=== PATIENT | male | born 1960 | race Caucasian/White ===

== ENCOUNTER 2017-07-07 11:23 | Emergency (ER) | payer SELFPAY ==
[2017-07-07] MEDS ORDERED: Adacel (T-DAP) 0.5 ML VIAL ONE (11:38)
== END 2017-07-07 11:42 | disposition home or self-care (01) ==
LOC: SCSER 11:23
DX: L03.114 Cellulitis of left upper limb (principal); M10.9 Gout, unspecified; I10 Essential (primary) hypertension; J44.9 Chronic obstructive pulmonary disease, unspecified; Z79.899 Other long term (current) drug therapy
CPT/HCPCS: 90471; 90715; 99282

== ENCOUNTER 2017-12-21 20:58 | Inpatient (IN) | payer SELFPAY ==
[2017-12-21 21:22] LABS: #Basophils 0.1 thou/uL (0.0-0.2); #Eosinphils 0.1 thou/uL (0.0-0.7); #Lymphocytes 1.7 thou/uL (1.20-3.40); #Monocytes 1.8 thou/uL (0.11-0.59); #Neutrophils 12.6 thou/uL (1.40-6.50); %Basophils 0.3 % (0.0-1.0); %Eosinophils 0.6 % (0.0-10.0); %Lymphocytes 10.3 % (21.0-51.0); %Neutrophils 77.8 % (42.0-75.0); Hemoglobin 12.4 g/dL (14.0-18.0); Mean Corpuscular HGB CONC 31.4 g/dL (32.0-36.0); Mean Corpuscular Hemoglobin 23.8 pg (27.0-31.0); Mean Corpuscular Volume 75.9 fL (78.0-98.0); Mean Platelet Volume 8.8 fL (7.4-10.4); Platelet Count 248 thou/uL (130-400); RBC Distribution Width 13.4 % (11.5-14.5); Red Blood Cell (RBC) Count 5.22 mill/uL (4.70-6.10); White Blood Cell (WBC) Count 16.2 thou/uL (4.8-10.8)
[2017-12-21 21:46] LABS: ALT (SGPT) 23 U/L (8-55); AST (SGOT) 23 U/L (5-34); Albumin 3.8 g/dL (3.5-5.0); Alkaline Phosphatase 160 U/L (40-150); Anion Gap 17 mmol/L (10-20); BUN (Urea Nitrogen) 62 mg/dL (8.4-25.7); Bilirubin, Total 0.9 mg/dL (0.2-1.2); CKMB 3.4 ng/mL (0-6.6); Calc. Creatinine Clearance 0 mL/min (70-130); Calcium 9.5 mg/dL (7.8-10.44); Carbon Dioxide 26 mmol/L (22-29); Chloride 96 mmol/L (98-107); Estimated GFR-MDRD 13; Globulin 4.2 g/dL (2.4-3.5); Glucose 110 mg/dL (70-105); Potassium 3.5 mmol/L (3.5-5.1); Sodium 135 mmol/L (136-145); Troponin I Less than 0.010 ng/mL (< 0.028)
--- NOTE | 2017-12-21 21:53 | RAD ---
AP VIEW CHEST: 12/21/2017 HISTORY: Trauma. Syncope. COMPARISON: 06/22/2015 FINDINGS: AP view chest demonstrates a 7 cm mid to lower left hilar or lung mass. This was not present on the previous exam. The right lung is well aerated. No evidence of definite pneumonia is seen. IMPRESSION: Mid to left lung soft tissue mass. Malignancy cannot be excluded. POS: [facility]
--- NOTE | 2017-12-21 22:36 | CT ---
CT BRAIN: HISTORY: Syncope. TECHNIQUE: Noncontrast enhanced CT images of the brain are obtained. FINDINGS: The brain is unremarkable. No evidence of intracranial masses, hemorrhages, strokes, or contusions s een. IMPRESSION: Normal CT brain. POS: [facility]
[2017-12-22 00:59] LABS: Troponin I Less than 0.010 ng/mL (< 0.028)
[2017-12-22 02:10] LABS: Bilirubin Negative (Negative); Blood, Urine Small (Negative); Clarity CLOUDY (Clear); Glucose, Urine (Dipstick) Negative (Negative); Leukocyte Moderate (Negative); Nitrite Negative (Negative); Protein, Urine (Dipstick) 100 mg/dL (Neg-Trace); Specific Gravity, Urine 1.013 (1.002-1.036); pH, Urine 5.5 (5.0-9.0)
[2017-12-22 02:13] LABS: Bacteria/HPF 3+ HPF (None Seen); Hyaline Casts/LPF 7-10 HYALINE CAST LPF (0-3 Hyaline); Pathc Cast-AUWi Flag 1.16 (0-2.49); RBC/HPF 21-50 HPF (0-3); Squamous Epithelial None Seen HPF (0-3)
[2017-12-22] MEDS ORDERED: traMADol HCl 50 MG TAB PO PRN (03:20)
[2017-12-22] MEDS ORDERED: Ondansetron PF 4 MG/2 ML Vial IVP PRN ×2 (03:20)
[2017-12-22] MEDS ORDERED: Ondansetron ODT 4 MG TAB PO PRN ×2 (03:20)
[2017-12-22] MEDS: Sodium Chloride 0.9% 1,000 ML IV SCH ×3 (03:43→17:30)
[2017-12-22] MEDS: Acetaminophen 325 MG TAB PO PRN ×2 (03:44→15:37)
[2017-12-22 03:56] LABS: Troponin I Less than 0.010 ng/mL (< 0.028)
[2017-12-22 03:58] LABS: Band 30 % (5-11); Eosinophils 1 % (0-10); Lymphocytes 3 % (21-51); MDiff Complete? YES; Mean Corpuscular HGB CONC 31.7 g/dL (32.0-36.0); Mean Corpuscular Hemoglobin 24.1 pg (27.0-31.0); Mean Corpuscular Volume 75.9 fL (78.0-98.0); Mean Platelet Volume 8.7 fL (7.4-10.4); Monocytes 3 % (0-10); Neutrophil 63 % (42-75); Platelet Count 159 thou/uL (130-400); RBC Distribution Width 13.4 % (11.5-14.5); Red Blood Cell (RBC) Count 4.99 mill/uL (4.70-6.10); White Blood Cell (WBC) Count 11.8 thou/uL (4.8-10.8)
[2017-12-22 04:04] LABS: Anion Gap 18 mmol/L (10-20); BUN (Urea Nitrogen) 59 mg/dL (8.4-25.7); Calc. Creatinine Clearance 30 mL/min (70-130); Calcium 8.8 mg/dL (7.8-10.44); Carbon Dioxide 20 mmol/L (22-29); Chloride 102 mmol/L (98-107); Estimated GFR-MDRD 17; Glucose 113 mg/dL (70-105); Potassium 3.5 mmol/L (3.5-5.1); Sodium 136 mmol/L (136-145)
--- NOTE | 2017-12-22 05:22 | HP ---
PRIMARY CARE PHYSICIAN: Dr. Renee at the [facility]. CHIEF COMPLAINT: "I passed out at [facility]." HISTORY OF PRESENT ILLNESS: Mr. Barrera is a pleasant 57-year-old gentleman that has a history of COPD, hypertension, and obstructive sleep apnea. He says over the past few days, he has been sleepin g most of the time and his appetite has been down and he has not been drinking as much fluids. He sa ys that he had a slight fever earlier today and was having some body aches. He took an Advil as he w as also having a headache. His significant other took his blood pressure and noted that it was low. She says that she gave him some coffee to try to increase the blood pressure and was going to rechec k it when she fell asleep. At this time, he went to [facility] with his daughter and says that when he was in the store, he passed out. He was brought to the emergency room where he was found to be hypot ensive with a blood pressure of 73/46. His creatinine was elevated at 4.0 and he is being admitted f or acute renal failure and hypotension. Also, on chest x-ray it was incidentally noted that he had a lung mass in the left upper lobe. The patient also says that he has been feeling nauseated off and on as well as having some heartburn, some loose stools, but otherwise no other complaints. He denies any chest pain or shortness of breath, no PND, no orthopnea, no lower extremity edema, but he has be en feeling dizzy for the last few days. He also states that he takes Benicar, but he does not take i t every day. He is not really sure if he even needs it because his blood pressure is usually on the lower side. REVIEW OF SYSTEMS: All systems are reviewed and are negative except for that mentioned in the histor y of present illness. PAST MEDICAL HISTORY: Significant for the COPD, hypertension, obstructive sleep apnea, narcolepsy, g out, and back problems. PAST SURGICAL HISTORY: Had an I&D of his finger and a gastric sleeve. ALLERGIES: No known drug allergies. SOCIAL HISTORY: He is . He has 2 children. He is a former smoker. He smoked at least 35 ye ars, approximately a pack a day. He occasionally drinks. CODE STATUS: FULL CODE. His surrogate decision maker is . FAMILY HISTORY: Significant for heart disease and diabetes. CURRENT MEDICATIONS: Tramadol 50 mg q.8 hours p.r.n., Lyrica 150 mg twice daily and olmesartan/hydro chlorothiazide 40/25 one tablet daily as directed. PHYSICAL EXAMINATION: GENERAL: He is alert and oriented. He appears to be in no acute distress. He is well developed, we ll nourished. VITAL SIGNS: His blood pressure was initially 73/46, heart rate 102, respiratory rate is 16, and tem perature is 97.9. HEENT: His pupils are equal, round, and reactive. Extraocular muscles are intact. Sclerae are anic teric. Throat: There is no erythema, no exudates. NECK: No adenopathy, no bruits. LUNGS: Clear to auscultation. There was no wheezing, no rales, no rhonchi. CARDIOVASCULAR: He had a normal S1, S2. There is no S3 or S4. No murmurs, clicks or rubs. ABDOMEN: Abdomen is soft, nonobese, positive for bowel sounds. There is no rebound, no guarding and no organomegaly. EXTREMITIES: There is no edema. Good distal pulses. MUSCULOSKELETAL: No muscle tenderness. No joint effusion or warmth. NEUROLOGIC: Cranial nerves II-XII intact and his muscle strength is 5/5 in both his upper and lower extremities. SKIN AND INTEGUMENT: No skin changes. No rash. LABORATORY RESULTS: D-dimer was 2.29. White blood cell count 16.2, hemoglobin 12.4, hematocrit is 3 9.6, platelet count was 248. Sodium 135, potassium 3.5, chloride is 96, CO2 is 26, BUN of 62, creati nine 4.59, glucose is 110. Alkaline phosphatase is . Troponin is less than 0.010. On his ches t x-ray by my reading, there did appear to be some haziness in the left lower lung, it is actually qu ite large oval shaped measuring approximately 7.3 cm and no other air space disease. No evidence of any effusion. Also had an EKG which by my reading is sinus rhythm, the rate was [address] wave c hanges. ASSESSMENT AND PLAN: This is a pleasant 57-year-old gentleman that presents after having a syncopal episode likely as a result of hypotension. This is likely due to volume depletion from poor oral int rad as well as KVNG inhibitors with a diuretic 1. Renal failure. We will continue IV hydration likely we will get a renal ultrasound as well and i f his renal function does not seem to be improving over the next few days, then consider a Nephrology consult. We will hold KVNG inhibitor for the ARB as well as a diuretic. 2. Syncope. This is likely related to #1. 3. Lung mass. We will consult Pulmonology for further recommendations. He will likely need a CT sc an for evaluation disease. 4. Chronic obstructive pulmonary disease, this appears to be clinically stable. We will continue Du oNebs as needed as well as his usual home medications for this and he will be placed on both deep guera ous thrombosis and gastrointestinal prophylaxis.
[2017-12-22 05:42] LABS: Creatinine, Urine 116.29 mg/dL (63-166)
--- NOTE | 2017-12-22 09:09 | ULT ---
RENAL ULTRASOUND: INDICATION: Renal failure. COMPARISON: None. FINDINGS: The right kidney measures 11.7 x 6.3 x 5.2 cm. There are small echogenic foci within the right kidne y likely reflecting tiny nonobstructing renal calculi. No hydronephrosis is evident. The left kidne y is 13.1 x 6.4 x 5.2 cm. No focal renal lesion or hydronephrosis is evident. The post void bladder volume of the bladder was 24.3 cc. The patient voided just prior to the examination. IMPRESSION: 1. No solid renal lesion or hydronephrosis. 2. Right nephrolithiasis. For more accurate measurement of the size of the renal calculi, a CT of t he abdomen and pelvis without contrast may be helpful. 3. Minimal post void residual. POS: [facility]
[2017-12-22] MEDS: Heparin 5,000 UNITS/ML VIAL SC SCH ×3 (10:23→20:54)
--- NOTE | 2017-12-22 10:50 | PDOC.PN ---
- Subjective Encounter Start Date: 12/22/17 Encounter Start Time: 10:25 Feels a little better. Does report that he has had some urinary hesitancy over past several days, but better now. - Objective Resuscitation Status: Resuscitation Status FULL:Full Resuscitation Vital Signs & Weight: Vital Signs (12 hours) Temp Pulse Resp BP Pulse Ox 12/22/17 07:40 99.7 F H 79 18 98/59 L 96 12/22/17 04:00 101.7 F H 107 H 20 100/59 L 97 12/22/17 00:30 99.1 F 90 18 121/70 99 Weight Weight 214 lb 8 oz I&O: 12/21/17 12/22/17 12/23/17 06:59 06:59 06:59 Output Total 850 Balance -850 Result Diagrams: 12/22/17 03:25 12/22/17 03:25 Phys Exam - Physical Examination Respiratory: no wheezing, no rales Diminished throughout Cardiovascular: RRR, no significant murmur, no rub Gastrointestinal: soft, non-tender, no distention Musculoskeletal: no edema Dx/Plan (1) Acute renal failure Status: Acute Comment: Likely secondary to dehydration, hypotension leading to Acute Tubular Necrosis. Continue fluids. (2) Lung mass Code(s): R91.8 - OTHER NONSPECIFIC ABNORMAL FINDING OF LUNG FIELD Status: Acute Comment: New since 2016. CT without contrast given renal injury. (3) COPD (chronic obstructive pulmonary disease) Status: Acute Comment: Continue nebs. (4) UTI (urinary tract infection) Status: Acute Comment: Urine culture, Blood culture. Start renally adjusted Levaquin. (5) Hypotension Status: Acute Comment: Dehydration, sepsis. Improved. Continue fluids. (6) Hypertension Code(s): I10 - ESSENTIAL (PRIMARY) HYPERTENSION Status: Acute Comment: Presented with hypotension. Meds held. (7) Sepsis Code(s): A41.9 - SEPSIS, UNSPECIFIED ORGANISM Status: Acute Comment: Hypotension, Leukocytosis, fever, UTI. Had fluid resuscitation. Starting abx. (8) Back pain Code(s): M54.9 - DORSALGIA, UNSPECIFIED Status: Acute Comment: Chronic. Continue Ultram. (9) D-dimer, elevated Code(s): R79.89 - OTHER SPECIFIED ABNORMAL FINDINGS OF BLOOD CHEMISTRY Status : Acute Comment: Difficult to know what to make of that in setting of possible lung ca. On low dose Heparin now (ARF). Will await Pulmonolgy recs. V:Q a possibility, but mass may be problematic. - Plan * .
[2017-12-22] MEDS ORDERED: [UNRECOGNIZED DRUG - REMARK] IVPB PRN (10:58)
--- NOTE | 2017-12-22 14:27 | CON ---
DATE OF CONSULTATION: 12/22/2017 HISTORY: Andrew Barrera is a 57-year-old who I have seen in the past for sleep apnea and asthma as well as COPD. He was lost to follow up. His last radiograph in my office showed clearing of the left lower lobe infiltrate that was suggestive of pneumonia. He presented this admission after being in bed for 2 days, not eating or drinking anything because he "felt bad." The "felt bad" was fairly nonspecific. He may have had some fever with this, but he was not sure he had a little bit of a headache and ached all over. He presented hypotensive with renal insufficiency, he has subsequently been volume resuscitated. PAST MEDICAL HISTORY: 1. Remarkable for COPD. 2. Hypertension. 3. Sleep apnea, noncompliant with followup and use of his CPAP. 4. Questionable history of narcolepsy. Last visit with me, he had been compliant with CPAP for long enough to work him up for narcolepsy. 5. History of gout. 6. History of back problems. 7. History of gastric sleeve. 8. History of I&D of finger abscess. SOCIAL HISTORY: He is a former smoker, but quit smoking when he seen me back in 2016. He is not a daily drinker. He lost his to pancreas cancer several years back and says everything fell apart after that. FAMILY HISTORY: Positive for vascular disease and diabetes. REVIEW OF SYSTEMS: Ten-point review of systems completed, otherwise negative. PHYSICAL EXAMINATION: GENERAL: Andrew Barrera is a 57-year-old who I have seen in the past for sleep apnea and asthma as well as COPD. VITAL SIGNS: He is febrile to 101.7, heart rate is 107 when he was febrile and 90 when he was afebrile. Respiratory rate is 20, oximetry is 97% on room air. Blood pressure 100/59. HEENT: Pupils are equal. Sclerae anicteric. NECK: Supple. LUNGS: Remarkable for faint wheezes bilaterally. HEART: Regular rhythm. S1 and S2 are normal. ABDOMEN: Soft and nontender. EXTREMITIES: Without clubbing, cyanosis, or edema. LABORATORY DATA: White count 11.8, hemoglobin 12.0, platelets 159. Sodium 136 , potassium 3.5, chloride 102, bicarbonate 20, BUN 59, creatinine 3.69 down from 4.59 yesterday. Alkaline phosphatase was 160. Liver enzymes were normal. Bilirubin was 0.9, albumin was 3.8. D-dimer is 2.29. IMAGING: Head CT was done when he came in which was unremarkable. IMPRESSION: 1. Intravascular volume depletion secondary to no p.o. intake for at least 2 days prior to admission. 2. Pulmonary nodule. I was consulted for chest x-ray abnormality not present on films when last seen by me. This is a smooth 7 cm density. It is large for a carcinoid tumor, but likely at some point in time, will need to come out. Now, it is not the time to address this. He has to get over his acute febrile illness before this can be addressed. He does have significant sleep apnea, but from what I can tell, he has lost his job and his insurance. It is unclear whether he has any financial support to reevaluate his sleep apnea. His last sleep study was in 2014. I would be happy to follow with the other physicians caring for him. This is a 50-minute consult, with greater than 50% of the time was spent in coordinating care on the unit. NABIL
[2017-12-22] MEDS ORDERED: Sodium Chloride 0.9% 500 ML IV SCH (16:00)
[2017-12-22] MEDS: Piperacillin/Tazobactam 2.25 GM in Sodium Chloride 0.9% 100 ML IVPB SCH ×2 (17:23→21:02)
[2017-12-22] MEDS ORDERED: Piperacillin/Tazobactam 3.375 GM in Sodium Chloride 0.9% 100 ML IVPB SCH (18:00)
[2017-12-23] MEDS: Sodium Chloride 0.9% 1,000 ML IV SCH ×3 (03:14→20:59)
[2017-12-23] MEDS: Piperacillin/Tazobactam 2.25 GM in Sodium Chloride 0.9% 100 ML IVPB SCH ×4 (03:15→20:58)
[2017-12-23 06:12] LABS: Anion Gap 13 mmol/L (10-20); Calcium 8.8 mg/dL (7.8-10.44); Carbon Dioxide 24 mmol/L (22-29); Chloride 102 mmol/L (98-107); Glucose 86 mg/dL (70-105); Potassium 3.8 mmol/L (3.5-5.1); Sodium 135 mmol/L (136-145)
[2017-12-23 06:15] LABS: BUN (Urea Nitrogen) 37 mg/dL (8.4-25.7); Calc. Creatinine Clearance 59 mL/min (70-130); Estimated GFR-MDRD 37
[2017-12-23] MEDS: Heparin 5,000 UNITS/ML VIAL SC SCH ×3 (09:01→20:58)
--- NOTE | 2017-12-23 16:26 | PDOC.PN ---
- Subjective Encounter Start Date: 12/23/17 Encounter Start Time: 11:45 Feeling better in general. No new complaints. Voiding well. - Objective Resuscitation Status: Resuscitation Status FULL:Full Resuscitation Vital Signs & Weight: Vital Signs (12 hours) Temp Pulse Resp BP BP Pulse Ox 12/23/17 12:11 74 16 96 12/23/17 11:49 98.4 F 60 16 91/55 L 95 12/23/17 08:00 98.2 F 76 16 88/55 L 96 Weight Admit Weight 214 lb 8 oz Weight 216 lb 6.4 oz I&O: 12/22/17 12/23/17 12/24/17 06:59 06:59 06:59 Intake Total 1700 Output Total 1450 Balance 250 Result Diagrams: 12/22/17 03:25 12/23/17 05:36 Phys Exam - Physical Examination Constitutional: NAD Respiratory: no wheezing, no rales, no rhonchi, clear to auscultation bilateral Cardiovascular: RRR I/ murmur Gastrointestinal: soft, non-tender, no distention, positive bowel sounds No CVAT Musculoskeletal: no edema Psychiatric: normal affect, A&O x 3 Dx/Plan (1) Sepsis Code(s): A41.9 - SEPSIS, UNSPECIFIED ORGANISM Status: Acute Comment: Hypotension, Leukocytosis, fever, UTI. Had fluid resuscitation. Starting abx. Secondary to UTI. E. Coli. (2) Acute renal failure Status: Acute Comment: Likely secondary to dehydration, hypotension leading to Acute Tubular Necrosis. Continue fluids. (3) Lung mass Code(s): R91.8 - OTHER NONSPECIFIC ABNORMAL FINDING OF LUNG FIELD Status: Acute Comment: New since 2016. Appreciate Pulm opinion. Will need addressed soon when he is over the sepsis and infection. May need CT with contrast when renal function is stable. (4) COPD (chronic obstructive pulmonary disease) Status: Acute Comment: Continue nebs. (5) UTI (urinary tract infection) Status: Acute Comment: Urine culture, Blood culture growing E. coli. On Levaquin and Zosyn. (6) Hypotension Status: Acute Comment: Dehydration, sepsis. Improved. Continue fluids. (7) Hypertension Code(s): I10 - ESSENTIAL (PRIMARY) HYPERTENSION Status: Acute Comment: Presented with hypotension. Meds held. (8) Back pain Code(s): M54.9 - DORSALGIA, UNSPECIFIED Status: Acute Comment: Chronic. Continue Ultram. (9) D-dimer, elevated Code(s): R79.89 - OTHER SPECIFIED ABNORMAL FINDINGS OF BLOOD CHEMISTRY Status : Acute Comment: Difficult to know what to make of that in setting of possible lung ca. On low dose Heparin now (ARF). Will await Pulmonolgy recs. V:Q a possibility, but mass may be problematic. - Plan * Continue fluids and antibiotics. * Ambulate.
[2017-12-24] MEDS: Piperacillin/Tazobactam 2.25 GM in Sodium Chloride 0.9% 100 ML IVPB SCH ×2 (03:37→11:17)
[2017-12-24] MEDS: Sodium Chloride 0.9% 1,000 ML IV SCH ×2 (04:37→17:02)
[2017-12-24 05:09] LABS: #Eosinphils 0.1 thou/uL (0.0-0.7); #Lymphocytes 1.2 thou/uL (1.20-3.40); #Monocytes 0.9 thou/uL (0.11-0.59); #Neutrophils 5.4 thou/uL (1.40-6.50); %Basophils 0.3 % (0.0-1.0); %Eosinophils 1.7 % (0.0-10.0); %Lymphocytes 16.1 % (21.0-51.0); %Monocytes 11.6 % (0.0-10.0); %Neutrophils 70.4 % (42.0-75.0); Hemoglobin 9.7 g/dL (14.0-18.0); Mean Corpuscular HGB CONC 31.8 g/dL (32.0-36.0); Mean Corpuscular Hemoglobin 24.2 pg (27.0-31.0); Mean Corpuscular Volume 76.2 fL (78.0-98.0); Platelet Count 195 thou/uL (130-400); RBC Distribution Width 13.2 % (11.5-14.5); Red Blood Cell (RBC) Count 3.98 mill/uL (4.70-6.10); White Blood Cell (WBC) Count 7.6 thou/uL (4.8-10.8)
[2017-12-24 05:19] LABS: Anion Gap 12 mmol/L (10-20); BUN (Urea Nitrogen) 23 mg/dL (8.4-25.7); Calc. Creatinine Clearance 92 mL/min (70-130); Calcium 8.4 mg/dL (7.8-10.44); Carbon Dioxide 24 mmol/L (22-29); Chloride 105 mmol/L (98-107); Estimated GFR-MDRD 62; Glucose 98 mg/dL (70-105); Potassium 3.2 mmol/L (3.5-5.1); Sodium 138 mmol/L (136-145)
[2017-12-24] MEDS ORDERED: Potassium Chloride 20 MEQ TAB PO SCH ×2 (08:30→13:30)
[2017-12-24] MEDS: Heparin 5,000 UNITS/ML VIAL SC SCH ×3 (08:46→20:28)
[2017-12-25] MEDS: Sodium Chloride 0.9% 1,000 ML IV SCH ×3 (01:10→09:00)
[2017-12-25 05:32] LABS: Anion Gap 12 mmol/L (10-20); BUN (Urea Nitrogen) 16 mg/dL (8.4-25.7); Calc. Creatinine Clearance 120 mL/min (70-130); Calcium 8.4 mg/dL (7.8-10.44); Carbon Dioxide 24 mmol/L (22-29); Chloride 107 mmol/L (98-107); Estimated GFR-MDRD 80; Glucose 112 mg/dL (70-105); Potassium 3.2 mmol/L (3.5-5.1); Sodium 140 mmol/L (136-145)
[2017-12-25] MEDS ORDERED: Potassium Chloride 20 MEQ TAB PO SCH (06:00)
[2017-12-25] MEDS: Heparin 5,000 UNITS/ML VIAL SC SCH (09:03)
[2017-12-25 11:50] VITALS: BMI 34.0
[2017-12-25 12:03] VITALS: BP 122/87; TEMP 97
--- NOTE | 2017-12-25 17:50 | EKG ---
Test Reason : Blood Pressure : / mmHG Vent. Rate : 092 BPM Atrial Rate : 092 BPM P-R Int : 156 ms QRS Dur : 096 ms QT Int : 354 ms P-R-T Axes : 073 034 040 degrees QTc Int : 437 ms Normal sinus rhythm Normal ECG Confirmed by BRITTANIE GAMBLE ([id number]), web content editor MYRTLE PORTER ([id number]) on 12/25/2017 5:49:07 PM Referred By: Confirmed By:BRITTANIE GAMBLE
--- NOTE | 2017-12-27 17:13 | PRG ---
DATE OF SERVICE: 12/27/2017 SUBJECTIVE: Patient is complaining of some just generalized fatigue, but otherwise feeling better ov erall with no specific complaints. PHYSICAL EXAMINATION: VITAL SIGNS: Temperature is 98.7, pulse 55, respirations 16, O2 sat 96% on room air, BP 101/66. GENERAL APPEARANCE: Age appropriate male in no distress. Awake, alert, oriented, pleasant, cooperat beau. HEART: Regular rate and rhythm without murmurs. LUNGS: Diminished but clear bilaterally with no wheeze or rales. ABDOMEN: Soft, nontender, nondistended, positive bowel sounds, no masses, no organomegaly. SKIN: Warm and dry without edema. LABORATORY DATA: White count 7.6, hemoglobin 9.7, platelets 195, has no bands reported. Potassium i s 3.2, otherwise chemistries normal. IMPRESSION AND PLAN: 1. Sepsis with Escherichia coli in the urine and the blood cultures. The patient does not appear to have evidence of ongoing sepsis. Seems to be fairly well resolved. 2. Acute renal failure improving with hydration and resolution of sepsis. Suspect acute tubular nec rosis secondary to hypotension. 3. Lung mass. Patient has an ovoid lung mass in the left upper lobe. He has been seen by Pulmonolo gy and recommendation is for outpatient followup once his infection has resolved. 4. Chronic obstructive pulmonary disease. Continue nebs. 5. Urinary tract infection with Escherichia coli. Patient is on both Levaquin and Zosyn. 6. Hypotension, resolved. 7. History of hypertension. Patient's history of hypertension he reported was a questionable and he was only taking medications intermittently. Appears to be stable now. 8. Elevated D-dimer. Patient was evaluated by Pulmonology. No recommendations for any further work up. May be related to acute illness or possibly related to the underlying lung mass.
--- NOTE | 2017-12-27 21:43 | DIS ---
DATE OF ADMISSION: 12/21/2017 DATE OF DISCHARGE: 12/25/2017 DISCHARGE DIAGNOSES: 1. Sepsis. 2. Urinary tract infection with Escherichia coli. 3. Escherichia coli bacteremia. 4. Acute renal failure likely secondary to acute tubular necrosis and hypotension. 5. Lung mass on the left upper lobe. 6. Chronic obstructive pulmonary disease. 7. Hypotension. 8. History of hypertension. 9. Elevated D-dimer. HISTORY: This patient is a 57-year-old male, who presented via the emergency department after a sync opal episode. The patient had not felt well for several days prior, was lethargic, but did not have other specific symptoms. He had not been eating or drinking well and ultimately had a syncopal episo de at [facility] where he was found to be hypotensive by first responders. The patient was seen in the emergency department where his creatinine was significantly elevated at 3.69. The patient had a whit e count of 16.2 and it was felt to have a significant prerenal azotemia from dehydration. The patien t received aggressive hydration in the emergency department and was admitted for further hydration. HOSPITAL COURSE: The patient subsequently had a urinalysis obtained, which revealed evidence of infe ction. He was then started on broad spectrum antibiotics with Levaquin and Zosyn. Subsequent blood cultures and urine culture were positive for E. coli, which fortunately had a number of antibiotic se nsitivities. The patient did improve clinically. His blood pressure resolved. He was voiding quite well without any evidence of obstruction. His strength and energy returned. His renal function com pletely normalized. He did have some mild hypokalemia that was treated with oral supplementation. T he patient also had an initial chest x-ray, which revealed an ovoid 7 cm lesion in the left upper lob e. Pulmonology was consulted and it was felt that this likely would need to come out, but the patien t would need to have his infection fully resolved before he could pursue any intervention. Once the patient was back to his baseline physical health, his cultures were known and his blood pressure was stabilized, he was felt to be stable for outpatient treatment. PHYSICAL EXAMINATION: VITAL SIGNS: On the day of discharge, temperature is 98.6, pulse 58, respirations 16, O2 sat 100% on room air, blood pressure 111/66. GENERAL APPEARANCE: Age appropriate male, in no distress. He is awake, alert, and oriented, pleasan t, cooperative. HEART: Regular rate and rhythm without murmurs, gallops or rubs. LUNGS: Slightly diminished throughout, but clear otherwise with no wheezes or rales. ABDOMEN: Soft, nontender, nondistended, positive bowel sounds. EXTREMITIES: Warm and dry without edema. DISPOSITION: The patient is discharged to home. DIET AND ACTIVITY: He will have a regular diet and activity level is as tolerated. DISCHARGE MEDICATIONS: He will be on Levaquin 500 mg p.o. q. day. He will continue his usual Lyrica , tramadol, and Benicar HCT. FOLLOWUP: He is to follow up with the [facility] and he is to follow up with Dr. Mccauley in 3- 4 weeks regarding the pulmonary lung mass. DISCHARGE INSTRUCTIONS: The patient is to return to the hospital emergency department should he have any problems prior to the time of his followup.
== END 2017-12-25 12:56 | disposition home or self-care (01) | DRG 871 ==
LOC: ERS 20:58 → 2NO 22:40
PROVIDERS: ADMIT Internal Medicine; ATTEND Internal Medicine
DX: A41.51 Sepsis due to Escherichia coli [E. coli] (principal); N17.0 Acute kidney failure with tubular necrosis; N39.0 Urinary tract infection, site not specified; R91.8 Other nonspecific abnormal finding of lung field; J44.9 Chronic obstructive pulmonary disease, unspecified; I10 Essential (primary) hypertension; E86.0 Dehydration; E87.6 Hypokalemia; G47.33 Obstructive sleep apnea (adult) (pediatric); M54.9 Dorsalgia, unspecified; R79.89 Other specified abnormal findings of blood chemistry; Z87.891 Personal history of nicotine dependence; Z79.899 Other long term (current) drug therapy
CPT/HCPCS: 36415; 36416; 70450; 71045; 76770; 80048; 80053; 81003; 81015; 82553; 82570; 83605; 84300; 84484; 85007; 85025; 85027; 85379; 87040; 87077; 87086; 87149; 87186; 90471; 90686; 93005; 94640; 96360; 96361; G0008; J1644; J1956; J2543; J7050; J7620

== ENCOUNTER 2018-02-20 | Observation (INO) | payer SELFPAY ==
[2018-02-20] MEDS ORDERED: Vancomycin HCl 1.5 GM in Sodium Chloride 0.9% 250 ML 300 ML IVPB ONE (00:45)
[2018-02-20 00:48] LABS: #Basophils 0.1 thou/uL (0.0-0.2); #Eosinphils 0.4 thou/uL (0.0-0.7); #Lymphocytes 2.1 thou/uL (1.20-3.40); #Monocytes 1.2 thou/uL (0.11-0.59); #Neutrophils 10.3 thou/uL (1.40-6.50); %Basophils 0.5 % (0.0-1.0); %Eosinophils 2.7 % (0.0-10.0); %Lymphocytes 15.2 % (21.0-51.0); %Monocytes 8.8 % (0.0-10.0); %Neutrophils 72.9 % (42.0-75.0); Hemoglobin 11.1 g/dL (14.0-18.0); Mean Corpuscular HGB CONC 31.8 g/dL (32.0-36.0); Mean Corpuscular Hemoglobin 24.2 pg (27.0-31.0); Mean Platelet Volume 8.1 fL (7.4-10.4); Platelet Count 269 thou/uL (130-400); RBC Distribution Width 14.7 % (11.5-14.5); Red Blood Cell (RBC) Count 4.57 mill/uL (4.70-6.10); White Blood Cell (WBC) Count 14.1 thou/uL (4.8-10.8)
[2018-02-20 01:31] LABS: ALT (SGPT) 12 U/L (8-55); AST (SGOT) 14 U/L (5-34); Albumin 3.7 g/dL (3.5-5.0); Alkaline Phosphatase 133 U/L (40-150); Anion Gap 14 mmol/L (10-20); BUN (Urea Nitrogen) 22 mg/dL (8.4-25.7); Bilirubin, Total 0.6 mg/dL (0.2-1.2); Calc. Creatinine Clearance 0 mL/min (70-130); Calcium 9.3 mg/dL (7.8-10.44); Carbon Dioxide 23 mmol/L (22-29); Chloride 103 mmol/L (98-107); Estimated GFR-MDRD 81; Globulin 3.6 g/dL (2.4-3.5); Glucose 117 mg/dL (70-105); Potassium 3.5 mmol/L (3.5-5.1); Protein, Total 7.3 g/dL (6.0-8.3); Sodium 136 mmol/L (136-145)
[2018-02-20] MEDS ORDERED: Ketorolac Tromethamine 30 MG/ML VIAL ONE (02:22)
[2018-02-20] MEDS ORDERED: Morphine 4 MG/ML VIAL ONE ×2 (02:22→10:01)
[2018-02-20] MEDS ORDERED: HYDROcodone/Acetaminophen 5/325 mg Tablet PO PRN ×2 (03:49)
[2018-02-20] MEDS ORDERED: Ondansetron PF 4 MG/2 ML Vial IVP PRN (03:49)
[2018-02-20] MEDS ORDERED: Acetaminophen 325 MG TAB PO PRN (03:49)
[2018-02-20] MEDS ORDERED: Ondansetron ODT 4 MG TAB SL PRN (03:49)
[2018-02-20] MEDS: Sodium Chloride 0.9% 1,000 ML IV SCH ×2 (04:16→19:32)
[2018-02-20 04:46] VITALS: BMI 31.2
--- NOTE | 2018-02-20 08:08 | RAD ---
RIGHT HAND 3 VIEWS: DATE: 02/20/2018. COMPARISON: None. HISTORY: Infection of the 3rd finger. FINDINGS: There is widening of the scapholunate interval, evidence of age-indeterminate scapholunate ligament t ear. There is diffuse soft tissue swelling involving the 3rd digit. There is no displaced fracture or evidence of dislocation seen. No radiopaque foreign body or subcut aneous gas noted. The soft tissues of the hand along the palm and dorsal aspect appear swollen. IMPRESSION: Diffuse soft tissue swelling suggests cellulitis. No acute fracture or dislocation. Widened scaphol unate interval. POS: [facility]
[2018-02-20] MEDS ORDERED: Morphine 4 MG/ML VIAL IV SCH (10:15)
[2018-02-20] MEDS: Ketorolac Tromethamine 30 MG/ML VIAL IVP SCH ×3 (10:16→21:26)
[2018-02-20] MEDS ORDERED: Sodium Chloride 0.9% 10 ML ONE (12:54)
[2018-02-20] MEDS ORDERED: Bacitracin Zinc Ointment 30 gm TUBE ONE ×2 (12:54→12:56)
[2018-02-20] MEDS ORDERED: Bupivacaine/Epinephrine 0.25% 30 ML VIAL ONE (12:54)
[2018-02-20] MEDS ORDERED: Bupivacaine PF 0.5% 30 ML VIAL ONE (13:07)
[2018-02-20] MEDS ORDERED: Fentanyl 100 MCG/2 ML VIAL ONE ×2 (13:17→14:24)
[2018-02-20] MEDS ORDERED: Promethazine HCl 25 MG/ML VIAL IM PRN (14:21)
[2018-02-20] MEDS ORDERED: Ondansetron HCl/PF 4 MG/2 ML Vial IVP PRN (14:21)
[2018-02-20] MEDS ORDERED: Promethazine HCl 25 MG/ML VIAL SLOW IVP PRN (14:21)
[2018-02-20] MEDS ORDERED: Rocuronium Bromide 10 MG/ML (10ML VIAL) ONE (15:31)
[2018-02-20] MEDS ORDERED: PROPOFOL 200 MG/20 ML VIAL ONE (15:31)
[2018-02-20] MEDS ORDERED: PHENYLEPHRINE-NS 100 MCG/ML 10 ML SYRINGE ONE (15:31)
[2018-02-20] MEDS ORDERED: Glycopyrrolate 0.2 MG/ML 5 ML SYRINGE ONE (15:31)
[2018-02-20] MEDS ORDERED: Lidocaine 1% PF 5 ML VIAL ONE (15:31)
[2018-02-20] MEDS: Morphine 4 MG/ML VIAL IV PRN ×2 (17:19→23:58)
[2018-02-21] MEDS: Vancomycin HCl 1 GM in Premix Bag 1 BAG IVPB SCH ×2 (02:01→14:36)
[2018-02-21] MEDS: Ketorolac Tromethamine 30 MG/ML VIAL IVP SCH ×4 (04:07→21:35)
[2018-02-21] MEDS: Morphine 4 MG/ML VIAL IV PRN ×3 (09:26→12:12)
[2018-02-21] MEDS: HYDROcodone/Acetaminophen 7.5/325 mg Tablet PO PRN ×3 (14:35→22:47)
[2018-02-22] MEDS: Vancomycin HCl 1 GM in Premix Bag 1 BAG IVPB SCH (01:50)
[2018-02-22] MEDS: Ketorolac Tromethamine 30 MG/ML VIAL IVP SCH ×4 (04:14→21:28)
[2018-02-22 06:49] LABS: #Basophils 0.1 thou/uL (0.0-0.2); #Eosinphils 0.6 thou/uL (0.0-0.7); #Lymphocytes 2.7 thou/uL (1.20-3.40); #Neutrophils 3.6 thou/uL (1.40-6.50); %Eosinophils 7.2 % (0.0-10.0); %Lymphocytes 33.6 % (21.0-51.0); %Monocytes 12.8 % (0.0-10.0); %Neutrophils 45.5 % (42.0-75.0); Hemoglobin 10.8 g/dL (14.0-18.0); Mean Corpuscular HGB CONC 32.4 g/dL (32.0-36.0); Mean Corpuscular Hemoglobin 24.5 pg (27.0-31.0); Mean Corpuscular Volume 75.7 fL (78.0-98.0); Mean Platelet Volume 8.5 fL (7.4-10.4); Platelet Count 281 thou/uL (130-400); RBC Distribution Width 14.5 % (11.5-14.5)
[2018-02-22] MEDS: HYDROcodone/Acetaminophen 7.5/325 mg Tablet PO PRN ×3 (08:25→21:37)
[2018-02-22] MEDS ORDERED: CEFAZOLIN/Water 2 GM/20 ML SYRINGE SLOW IVP SCH (13:30)
[2018-02-22] MEDS: CEFAZOLIN 2 GM/50 ML-DEXTROSE 2 GM in Premix Bag 1 BAG IVPB SCH ×2 (13:50→21:29)
--- NOTE | 2018-02-22 14:22 | OP ---
DATE OF PROCEDURE: 02/20/2018 PREOPERATIVE DIAGNOSIS: Right hand complex abscess, dorsal. FINDINGS: No gross purulence within the metacarpophalangeal joint. PROCEDURE PERFORMED: 1. arthrotomy visualized and irrigated to copious necrosis of subcutaneous tissue with abscess cavity 3 mm thick over the tendon and skin. Approximately 3 mL of gross thick aguilar green mucopurulent pus was removed and necrotic tissue. 2. Abscess incision and drainage, complex. POSTOPERATIVE DIAGNOSIS: Complex abscess. TOURNIQUET TIME: 20 minutes. CULTURES: Type 3 (dorsal abscess cavity) deep wound culture of short segment of metacarpophalangeal joint. INDICATIONS: The patient reported 2-1/2 days of progressive erythema, swelling and finally had pus and purulence at the site listed above. White count was 14.5 thousand. We felt urgent drainage was indicated. DESCRIPTION OF PROCEDURE: After successful general LMA technique, the limb was prepped and draped. We then gave 10 mL of 0.5% Marcaine block with very erythematous and indurated and edematous, so we were not sure We inflated the tourniquet carried through skin and subcutaneous tissue. In the center of wound, there was mucopurulent fluctuance that was easily identified, it was gross aguilar green pus subcutaneous tissue through a small hole. We were able to debride the 3 mm thick abscess cavity began just proximal to the retinaculum and then extended all the way to of the PIP joint. Then, once we debrided all mucosal material, we then irrigated this area with 2 to 3 L of normal saline and Pulsavac pressure and we made a small arthrotomy, then lifted up the extensor mechanism on the radial side and found gross purulence, we irrigated this with 1000 mL . Tourniquet deflated, hemostasis obtained, culture was sent as listed above and the patient left the operating room without evidence of anesthetic or operative complication. Job ID: [id number]
[2018-02-23] MEDS: Ketorolac Tromethamine 30 MG/ML VIAL IVP SCH ×4 (04:59→21:18)
[2018-02-23] MEDS: CEFAZOLIN 2 GM/50 ML-DEXTROSE 2 GM in Premix Bag 1 BAG IVPB SCH ×3 (05:00→21:19)
--- NOTE | 2018-02-23 07:35 | CON ---
DATE OF CONSULTATION: 02/22/2018 REASON FOR CONSULTATION: Hand abscess. HISTORY OF PRESENT ILLNESS: A 58-year-old recently discharged with a diagnosis of UTI, lung mass in left upper lobe, COPD, and hypotension, who now comes in with an abscess in the right hand dorsal aspect. He had I and D by Dr. Bernstein. Apparently, just an abscess was found without bone involvement. There was a hand x-ray, which showed diffuse soft tissue swelling. Currently, he is feeling better. No headaches, visual symptoms, sore throat, odynophagia, or dysphagia. No cough or sputum production. No chest pain. No back pain. No abdominal pain or diarrhea. No genitourinary symptoms. No neurological symptoms. PAST MEDICAL HISTORY: 1. COPD. 2. UTI. 3. Left upper lobe lung mass, yet to be diagnosed. 4. Obstructive sleep apnea. 5. Narcolepsy. 6. Gout. PAST SURGICAL HISTORY: I and D of finger as well as a recent gastric sleeve done elsewhere. ALLERGIES: NONE. SOCIAL HISTORY: Two children. . Former smoker. Drinks occasionally. FAMILY HISTORY: Noncontributory. CURRENT MEDICATIONS: 1. [place]. 2. Toradol. 3. Morphine. 4. Vancomycin. PHYSICAL EXAMINATION: VITAL SIGNS: Unremarkable. He is afebrile. SKIN: Shows the right hand dressing, I did not remove it. No photos are available to review the skin appearance. No other skin lesions noted. The patient has a peripheral IV access and is urinating in the toilet. LYMPH NODES: No lymphadenopathy. HEENT: Noncontributory. The patient has no [place] teeth left. NECK: Supple. LUNGS: Symmetric, clear breath sounds. HEART: S1 and S2. Regular rate. No S3 or S4. ABDOMEN: Soft, not distended or tender. No ascites. No bladder distention. MUSCULOSKELETAL: No joint inflammatory activity outside involved area. NEUROLOGIC: Nonfocal. LABORATORY DATA: White cell count is down from 14 to 8, hemoglobin 10, and platelets 281 with fairly normal differential. Chemistry reveals slight elevation of glucose. CRP 6.37. ASSESSMENT: 1. Left lung mass, which needs to be biopsied. 2. History of chronic obstructive pulmonary disease. 3. Right hand abscess. I am uncertain of the precipitating factor here. He was working with his car, so he may have injured his hand skin somehow. We just received the results of the susceptibility studies and it is a methicillin-susceptible Staph aureus, so I will switch him to Keflex orally for discharge planning, follow up in clinic, duration of tx: 3 wks. No evidence of osteomyelitis. Job ID: [id number] MTDD
[2018-02-23] MEDS: HYDROcodone/Acetaminophen 7.5/325 mg Tablet PO PRN (09:41)
[2018-02-24] MEDS: Ketorolac Tromethamine 30 MG/ML VIAL IVP SCH ×2 (04:58→08:59)
[2018-02-24] MEDS: CEFAZOLIN 2 GM/50 ML-DEXTROSE 2 GM in Premix Bag 1 BAG IVPB SCH (05:01)
[2018-02-24] MEDS: HYDROcodone/Acetaminophen 7.5/325 mg Tablet PO PRN (05:04)
[2018-02-24 08:14] VITALS: BP 138/84; TEMP 98.5
[2018-02-24] MEDS: Morphine 4 MG/ML VIAL IV PRN (08:59)
== END 2018-02-24 10:40 | disposition home or self-care (01) ==
LOC: ERS → SURG A 03:18
PROVIDERS: ADMIT Orthopaedic Surgery Hand Surgery; ATTEND Orthopaedic Surgery Hand Surgery
PROC: 0H9FXZZ Drainage of Right Hand Skin, External Approach (ICD-10-PCS; principal; 2018-02-20)
DX: L02.511 Cutaneous abscess of right hand (principal); J44.9 Chronic obstructive pulmonary disease, unspecified; G47.33 Obstructive sleep apnea (adult) (pediatric); G47.419 Narcolepsy without cataplexy; M10.9 Gout, unspecified; R91.8 Other nonspecific abnormal finding of lung field; E66.9 Obesity, unspecified; Z68.31 Body mass index [BMI] 31.0-31.9, adult; Z98.84 Bariatric surgery status; Z87.891 Personal history of nicotine dependence; Z98.890 Other specified postprocedural states
CPT/HCPCS: 36415; 80053; 85025; 85652; 86140; 87070; 87077; 87186; 87205; 96361; 96365; 96366; 96367; 96375; 96376; G0378; J1885; J2001; J2270; J2405; J2704; J3010; J3370; J3490; J7050; S0020

== ENCOUNTER 2018-02-26 13:48 | Outpatient (CLI) | payer SELFPAY ==
[~2018-02-26 13:48] MED LIST: Sodium Chloride 0.9% 15 ML NEB ONE
== END 2018-02-26 13:49 | disposition home or self-care (01) ==
LOC: WCC 13:48
PROVIDERS: ATTEND Family Medicine
DX: L03.113 Cellulitis of right upper limb (principal); L02.511 Cutaneous abscess of right hand
CPT/HCPCS: 97605; A4218

== ENCOUNTER 2018-02-27 23:09 | Emergency (ER) | payer SELFPAY | END 2018-02-28 00:24 | disposition home or self-care (01) | LOC: ERS 23:09 | DX: T81.89XA Other complications of procedures, not elsewhere classified, initial encounter (principal); J44.9 Chronic obstructive pulmonary disease, unspecified; I10 Essential (primary) hypertension; F32.9 Major depressive disorder, single episode, unspecified; M10.9 Gout, unspecified; Z87.891 Personal history of nicotine dependence; Z79.899 Other long term (current) drug therapy | CPT/HCPCS: 99283 ==

== ENCOUNTER 2018-03-01 11:27 | Outpatient (CLI) | payer SELFPAY | END 2018-03-01 11:28 | disposition home or self-care (01) | LOC: WCC 11:27 | PROVIDERS: ATTEND Family Medicine | DX: T81.89XD Other complications of procedures, not elsewhere classified, subsequent encounter (principal) | CPT/HCPCS: 97605; A4218 ==

== ENCOUNTER 2018-03-04 21:23 | Inpatient (IN) | payer SELFPAY ==
[2018-03-04 21:54] LABS: #Basophils 0.1 thou/uL (0.0-0.2); #Eosinphils 0.1 thou/uL (0.0-0.7); #Lymphocytes 3.2 thou/uL (1.20-3.40); #Monocytes 0.8 thou/uL (0.11-0.59); %Basophils 0.4 % (0.0-1.0); %Eosinophils 0.8 % (0.0-10.0); %Lymphocytes 20.8 % (21.0-51.0); %Monocytes 5.4 % (0.0-10.0); %Neutrophils 72.7 % (42.0-75.0); Mean Corpuscular HGB CONC 31.7 g/dL (32.0-36.0); Mean Corpuscular Hemoglobin 24.1 pg (27.0-31.0); Mean Corpuscular Volume 75.9 fL (78.0-98.0); Mean Platelet Volume 8.2 fL (7.4-10.4); Platelet Count 483 thou/uL (130-400); RBC Distribution Width 14.9 % (11.5-14.5); Red Blood Cell (RBC) Count 5.83 mill/uL (4.70-6.10); White Blood Cell (WBC) Count 15.2 thou/uL (4.8-10.8)
[2018-03-04 22:14] LABS: ALT (SGPT) 14 U/L (8-55); AST (SGOT) 19 U/L (5-34); Albumin 4.2 g/dL (3.5-5.0); Alkaline Phosphatase 167 U/L (40-150); Anion Gap 15 mmol/L (10-20); BUN (Urea Nitrogen) 32 mg/dL (8.4-25.7); Bilirubin, Total 0.3 mg/dL (0.2-1.2); Calc. Creatinine Clearance 0 mL/min (70-130); Calcium 10.1 mg/dL (7.8-10.44); Carbon Dioxide 22 mmol/L (22-29); Chloride 101 mmol/L (98-107); Estimated GFR-MDRD 25; Globulin 4.6 g/dL (2.4-3.5); Glucose 168 mg/dL (70-105); Protein, Total 8.8 g/dL (6.0-8.3); Sodium 133 mmol/L (136-145)
--- NOTE | 2018-03-04 22:27 | RAD ---
PORTABLE UPRIGHT FRONTAL CHEST RADIOGRAPH 03/04/18 COMPARISON: 12/21/17 HISTORY: Sepsis. FINDINGS: There is no pneumothorax, pleural fluid, or lobar consolidation. A 7.2 cm mass is again seen in the m edial aspect of the left lung base. Right lung appears clear. IMPRESSION: Stable 7.2 cm mass within the right lung mass suspicious for malignancy. Results called to Dr. Musa 10:20 p.m., 03/04/18. Code CR POS: [facility]
[2018-03-04 22:59] LABS: Bilirubin Large (Negative); Blood, Urine Negative (Negative); Clarity CLOUDY (Clear); Glucose, Urine (Dipstick) Negative (Negative); Leukocyte Trace (Negative); Nitrite Negative (Negative); Protein, Urine (Dipstick) 30 mg/dL (Neg-Trace); Specific Gravity, Urine 1.024 (1.002-1.036)
[2018-03-04 23:02] LABS: Bacteria/HPF None Seen HPF (None Seen)
[2018-03-04 23:03] LABS: Pathc Cast-AUWi Flag 6.25 (0-2.49)
[2018-03-04 23:12] LABS: RBC/HPF 0-3 HPF (0-3)
[2018-03-04 23:13] LABS: Crystals/HPF 2+ CA OXALATE HPF (Negative); Renal Epithelial 0-3 HPF (0-3)
[2018-03-04] MEDS ORDERED: Vancomycin HCl 1.5 GM in Sodium Chloride 0.9% 250 ML 300 ML IVPB ONE (23:45)
[2018-03-04] MEDS ORDERED: Piperacillin/Tazobactam 4.5 GM VIAL ONE (23:49)
[2018-03-05] MEDS ORDERED: Clindamycin/D5W 900 mg/50 ml Premix Bag ONE (00:24)
[2018-03-05 05:35] LABS: Lactic Acid 0.7 mmol/L (0.5-2.2)
[2018-03-05] MEDS ORDERED: Sodium Chloride 0.65% Nasal 44 ML BOT EA NARE PRN (07:33)
[2018-03-05] MEDS ORDERED: hydrALAZINE 20 MG/ML VIAL SLOW IVP PRN (07:33)
[2018-03-05] MEDS ORDERED: Artificial Tears 18 DROP/0.9 ML EA EYE PRN (07:33)
[2018-03-05] MEDS ORDERED: Cepastat Lozenges 1 LOZ PO PRN (07:33)
[2018-03-05] MEDS ORDERED: HYDROcodone/Acetaminophen 5/325 mg Tablet PO PRN (07:33)
[2018-03-05] MEDS ORDERED: Bisacodyl 10 MG SUPP PR PRN (07:33)
[2018-03-05] MEDS ORDERED: Loperamide HCl 2 MG CAP PO PRN (07:33)
[2018-03-05] MEDS ORDERED: Eucerin (Mineral Oil/Petrolatum,White) 30 gm Jar TOP PRN (07:33)
[2018-03-05] MEDS ORDERED: Zolpidem Tartrate 5 MG TAB PO PRN (07:33)
[2018-03-05] MEDS ORDERED: Calcium Carbonate 500 MG ChewTAB PO PRN (07:33)
[2018-03-05] MEDS ORDERED: Ondansetron ODT 4 MG TAB PO PRN (07:33)
[2018-03-05] MEDS ORDERED: Ondansetron PF 4 MG/2 ML Vial IVP PRN (07:33)
[2018-03-05] MEDS ORDERED: Senokot S 8.6-50 MG TAB PO PRN (07:33)
[2018-03-05] MEDS ORDERED: Loratadine 10 MG TAB PO PRN (07:33)
[2018-03-05] MEDS ORDERED: Bisacodyl 5 MG TAB PO PRN (07:33)
[2018-03-05] MEDS ORDERED: VANCOMYCIN IVPB PRN (07:33)
[2018-03-05] MEDS ORDERED: Diabetic Tussin 200 MG/10 ML UDCUP PO PRN (07:33)
[2018-03-05] MEDS ORDERED: Acetaminophen 325 MG TAB PO PRN (07:33)
--- NOTE | 2018-03-05 07:48 | CT ---
CHEST CT WITHOUT CONTRAST: DATE: 03/04/2018. COMPARISON: None. HISTORY: Mass noted on recent chest radiograph. TECHNIQUE: Axial CT imaging at 5 mm intervals from the thoracic inlet through the upper abdomen without contrast . Coronal reformatted imaging obtained. FINDINGS: Imaged upper abdomen demonstrates multiple small stones within the gallbladder. There is a gastric s uture line present. No pleural, pericardial, or mediastinal fluid is evident. Evaluation of the viscera, vascular struct ures, and for lymphadenopathy is limited without IV contrast. Limited assessment of the chest for ly mphadenopathy appears unremarkable. There is a central soft tissue mass lesion within the left upper lobe abutting the fissure measuring 6.6 x 7.0 x 7.0 cm. This lesion is highly suspicious for bronchogenic carcinoma and appears amenable to sampling via bronchoscopy. No additional pulmonary parenchymal mass lesion or nodule noted on th e left. No pulmonary parenchymal mass lesion or nodule is appreciated on the right. Review of the osseous structures demonstrates a vague lytic area within the T10 vertebral body which may represent a hemangioma. Metastatic lesion not fully excluded but is felt less likely. IMPRESSION: Large soft tissue mass in the left upper lobe highly concerning for bronchogenic carcinoma. Nonspeci fic subtle lytic area within T10. Recommend further assessment via PET scan. The lesion within the left upper lobe appears amenable to tissue sampling via bronchoscopy. Dr. Musa made aware 12/10 a.m. 03/05/2018. CODE CR POS: [facility]
[2018-03-05] MEDS ORDERED: Famotidine 20 MG TAB ONE (08:49)
[2018-03-05] MEDS ORDERED: Enoxaparin Sodium 40 MG/0.4 ML SYRINGE ONE (08:49)
[2018-03-05] MEDS: Piperacillin/Tazobactam 2.25 GM in Sodium Chloride 0.9% 100 ML IVPB SCH ×3 (09:04→19:53)
[2018-03-05] MEDS: Enoxaparin Sodium 40 MG/0.4 ML SYRINGE SC SCH (09:05)
[2018-03-05] MEDS: Famotidine 20 MG TAB PO SCH ×2 (09:05→20:28)
[2018-03-05] MEDS: Saccharomyces boulardii 250 MG CAP PO SCH (09:05)
--- NOTE | 2018-03-05 10:45 | HP ---
PRIMARY CARE PHYSICIAN: [facility]. REASON FOR ADMISSION: Right hand cellulitis, hypotension, and lung mass. HISTORY OF PRESENT ILLNESS: A 58-year-old male, who has a history of right hand cellulitis and he was treated with incision and drainage on February 20, 2018. The patient stayed in the hospital for four days. He was discharged home on February 24, 2018. The patient was given Bactrim DS upon discharge. The patient was getting wound care with wound VAC through our hospital outpatient wound care clinic. Yesterday, the patient's blood pressure was running low. He was on antihypertensives medication and because blood pressure was low and he was feeling weak, that is why he did not take any blood pressure medication. Last night, when he woke up, at that time, he checked his blood pressure, it was 80 systolic. He was also feeling subjective warm and weak and that is why he decided to come to emergency room for evaluation. In the emergency room, sepsis alert was initiated. His routine blood test showed leukocytosis with left shift and he was found with acute kidney failure. His creatinine today is 2.67 when he was discharged about a week ago. At that time, his creatinine was 0.95. The patient was initially hypotensive and he was given IV fluid and after that, blood pressure improved. He denies any UTI symptoms. He denies any cough. He denies any weight loss. He denies any pleuritic chest pain. He denies any hemoptysis. 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 In the emergency room, the patient had a CT chest, which showed large soft tissue mass in left upper lobe concerning for bronchogenic carcinoma. REVIEW OF SYSTEMS: CONSTITUTIONAL: Negative for weight loss or gain, ability to conduct usual activities. SKIN: Negative for rash, itching. EYES: Negative for double vision, pain. ENT/MOUTH: Negative for nose bleeding, neck stiffness, pain, tenderness. CARDIOVASCULAR: Negative for palpitations, dyspnea on exertion, orthopnea. RESPIRATORY: Negative for shortness of breath, wheezing, cough, hemoptysis, fever or night sweats. GASTROINTESTINAL: Negative for poor appetite, abdominal pain, heartburn, nausea, vomiting, constipation, or diarrhea. GENITOURINARY: Negative for urgency, frequency, dysuria, nocturia. MUSCULOSKELETAL: Negative for pain, swelling. NEUROLOGIC/PSYCHIATRIC: Negative for anxiety, depression. ALLERGY/IMMUNOLOGIC: Negative for skin rash, bleeding tendency. Please see my HPI for pertinent positive and negative. All other review of systems reviewed and negative except as mentioned in the HPI. PAST MEDICAL HISTORY: COPD, obstructive sleep apnea, not on any CPAP therapy, hypertension, narcolepsy, gout, ex-smoker, history of lung mass, recent history of cellulitis of right hand. PAST SURGICAL HISTORY: The patient required incision and drainage for cellulitis/abscess over the right hand, gastric sleeve surgery. PAST PSYCHIATRIC HISTORY: Anxiety and depression. SOCIAL HISTORY: The patient drinks alcohol occasionally. He is ex-smoker. He quit smoking few years ago. He denies any other illicit drug abuse. FAMILY HISTORY: No family history of coronary artery disease, stroke, or cancer. ALLERGIES: NO KNOWN DRUG ALLERGIES. CURRENT HOME MEDICATIONS: 1. Tramadol 50 mg q.8 hourly p.r.n. 2. Lyrica 150 mg twice daily. 3. Benicar 20 mg daily. 4. Bactrim 1 tablet twice daily. EMERGENCY ROOM COURSE: The patient has received IV fluid, clindamycin, vancomycin, and Zosyn. PHYSICAL EXAMINATION: VITAL SIGNS: On arrival, blood pressure 99/66, pulse 115, respiratory rate 17, temperature 97.8, saturation 99% on room air. Weight 102.6 kg. GENERAL: The patient is currently alert, awake, no obvious acute distress. HEENT: Head; normocephalic, atraumatic. Eyes; pupils are round, reactive to light. Extraocular muscle intact. ENT, oropharynx within normal limits. Moist mucous membranes. No oral lesion. No pharyngeal erythema. No exudate. NECK: Supple. No JVD. No thyromegaly. No carotid bruit. LUNGS: Clear to auscultation without any rhonchi or rales. CARDIAC: S1 and S2 regular. No murmur elicited. No gallop. ABDOMEN: Soft. Bowel sounds present. Nontender. Nondistended. No organomegaly. No mass. No suprapubic tenderness. CARDIAC: S1 and S2 regular without any murmur. BACK: No CVA tenderness. EXTREMITIES: Upper extremity, the patient does have wound open over right hand, which is draining purulent material. No erythema or tenderness noted as well. Lower extremity, no edema. Good distal pulsation. SKIN: No skin rash other than wound over right dorsal aspect of hand. NEUROLOGIC: Nonfocal examination. SIGNIFICANT LABORATORY DATA: EKG showing sinus tachycardia, nonspecific ST-T changes. Chest x-ray showing left thoracic lung mass. CT chest consistent with large soft tissue mass in left upper lobe concerning for bronchogenic carcinoma, nonspecific lytic area within T10. CBC; WBC 15.2, hemoglobin 14.0, platelet 483 with left shift. BMP; sodium 133, potassium 5.0, chloride 101, carbon dioxide 22, anion gap 15, BUN 32, creatinine 2.67, glucose 168, calcium 10.1, lactic acid 0.7. LFT; AST 19, ALT 14, alkaline phosphatase 167, albumin 4.2. Urinalysis, leukocyte esterase trace. Blood culture negative. Culture from wound is also in process. ASSESSMENT AND PLAN: Impression: 1. Acute kidney failure. The patient has multifactorial etiology of acute kidney failure including recent use of Bactrim as well as hypotension and volume depletion plus possible sepsis. At this point, we will avoid nephrotoxins agent. We will continue with IV fluid and will repeat BMP tomorrow and monitor renal function. We are expecting that with IV fluid, his renal function should get better. If not, then we will involve Nephrology. 2. Cellulitis with abscess over the right hand, status post recent incision and drainage. At this point, wound is draining purulent material. He will need wound VAC and we will continue with empiric antibiotic therapy with vancomycin and Zosyn and will adjust antibiotic dose based on renal function. 3. History of lung mass, never evaluated in the past because of insurance issue. I will consult Pulmonology for their opinion. 4. Sepsis with acute organ dysfunction. The patient has leukocytosis. Source of infection is cellulitis and he has acute kidney failure. 5. Sepsis associated hypotension. The patient will be given IV fluid. His blood pressure improved. We will hold on antihypertensive medication. 6. Hypertension. We will hold on antihypertensive medication because of current low blood pressure. 7. Urinary tract infection. Follow up on urine culture. Currently on antibiotic therapy. 8. Chronic obstructive pulmonary disease. We will continue with DuoNeb therapy q.6 hourly p.r.n. 9. History of obstructive sleep apnea. The patient does not have any CPAP machine at home. 10. Gout. We will check uric acid level tomorrow and then decide starting hyperuricemic therapy. 11. Obesity with BMI 32. Dietary education given. Weight loss education given. 12. Deep venous thrombosis prophylaxis, Lovenox 40 mg subcu daily. GI prophylaxis, Pepcid 20 mg p.o. b.i.d. CODE STATUS: The patient is full code. The patient does not have any surrogate decision maker. DISPOSITION PLAN: Based on clinical course, we are expecting the patient's stay in hospital more than 2 midnights. Plan of care discussed with the patient in detail. Job ID: [id number]
[2018-03-05] MEDS: Sodium Chloride 0.9% 1,000 ML IV SCH ×3 (14:40→20:29)
[2018-03-05 14:52] VITALS: BMI 32.2
--- NOTE | 2018-03-05 22:11 | CON ---
DATE OF CONSULTATION: 03/05/2018 CONSULTING PHYSICIAN: Dr. Cid.. REASON FOR CONSULTATION: Lung mass. HISTORY OF PRESENT ILLNESS: A 58-year-old male, who is being admitted for treatment of right hand cellulitis. Apparently, this was initially evaluated on February 20. He was in the hospital for 4 days, then discharged home on Bactrim. He had been getting wound care through a wound VAC. Yesterday, he was noted to be hypotensive. It was suggested that he come over to the emergency room for further evaluation. As part of this, he had a repeat chest x-ray and CT showing a known 7 cm mass in the left lung field. The patient has seen Dr. Mccauley for this in the past and is in the process of workup. PAST MEDICAL HISTORY: 1. Lung mass. 2. Chronic obstructive pulmonary disease. 3. HOA, not currently treated. 4. Narcolepsy. 5. Hypertension. 6. Cellulitis. PAST SURGICAL HISTORY: 1. I and D of a right hand abscess. 2. Gastric sleeve surgery. SOCIAL HISTORY: Smoked up until about 5 years ago, 1 to 3 packs per day. Occasionally drinks alcohol. FAMILY MEDICAL HISTORY: Unremarkable. ALLERGIES: NONE. MEDICATIONS: Prior to admission; 1. Tramadol. 2. Lyrica. 3. Benicar. 4. Bactrim. REVIEW OF SYSTEMS: Otherwise negative. PHYSICAL EXAMINATION: VITAL SIGNS: O2 saturation 95% on room air, blood pressure 130/70, respiratory rate 18. GENERAL: He is awake and alert, in no distress. HEENT: Unremarkable. NECK: No adenopathy or JVD. LUNGS: Clear. CARDIAC: S1, S2. Regular. ABDOMEN: Soft. EXTREMITIES: No edema. LABORATORY DATA: Reviewed. Notable findings included a white blood cell count of 15.2, sodium 133, creatinine 2.6. His CT and chest x-ray were reviewed. He has over 7 cm lung mass in the lingular portion of the left upper lobe. ASSESSMENT: Known left upper lobe lung mass. PLAN: No further workup will be done for this over the weekend. I will notify Dr. Mccauley on Thursday that the patient is in the hospital, but most of this workup can wait for outpatient evaluation. Job ID: [id number]
[2018-03-06] MEDS ORDERED: Vancomycin HCl 1.5 GM in Sodium Chloride 0.9% 250 ML 300 ML IVPB SCH
[2018-03-06] MEDS: Sodium Chloride 0.9% 1,000 ML IV SCH (02:18)
[2018-03-06] MEDS: Piperacillin/Tazobactam 2.25 GM in Sodium Chloride 0.9% 100 ML IVPB SCH ×4 (02:18→20:09)
[2018-03-06 06:32] LABS: #Basophils 0.1 thou/uL (0.0-0.2); #Eosinphils 0.6 thou/uL (0.0-0.7); #Lymphocytes 3.1 thou/uL (1.20-3.40); #Monocytes 1.2 thou/uL (0.11-0.59); #Neutrophils 7.1 thou/uL (1.40-6.50); %Basophils 0.5 % (0.0-1.0); %Eosinophils 5.2 % (0.0-10.0); %Lymphocytes 25.5 % (21.0-51.0); %Monocytes 10.2 % (0.0-10.0); %Neutrophils 58.6 % (42.0-75.0); Hemoglobin 11.9 g/dL (14.0-18.0); Mean Corpuscular HGB CONC 31.2 g/dL (32.0-36.0); Mean Corpuscular Hemoglobin 24.1 pg (27.0-31.0); Mean Corpuscular Volume 77.2 fL (78.0-98.0); Platelet Count 354 thou/uL (130-400); RBC Distribution Width 14.7 % (11.5-14.5); Red Blood Cell (RBC) Count 4.93 mill/uL (4.70-6.10); White Blood Cell (WBC) Count 12.1 thou/uL (4.8-10.8)
[2018-03-06 06:55] LABS: ALT (SGPT) 11 U/L (8-55); AST (SGOT) 16 U/L (5-34); Albumin 3.6 g/dL (3.5-5.0); Alkaline Phosphatase 143 U/L (40-150); Anion Gap 13 mmol/L (10-20); BUN (Urea Nitrogen) 22 mg/dL (8.4-25.7); Bilirubin, Total 0.2 mg/dL (0.2-1.2); Calc. Creatinine Clearance 97 mL/min (70-130); Calcium 9.2 mg/dL (7.8-10.44); Carbon Dioxide 19 mmol/L (22-29); Chloride 108 mmol/L (98-107); Estimated GFR-MDRD 63; Globulin 3.5 g/dL (2.4-3.5); Glucose 131 mg/dL (70-105); Potassium 4.4 mmol/L (3.5-5.1); Protein, Total 7.1 g/dL (6.0-8.3); Sodium 136 mmol/L (136-145); Uric Acid 6.2 mg/dL (3.5-7.2)
[2018-03-06] MEDS ORDERED: traMADol HCl 50 MG TAB PO PRN (07:21)
[2018-03-06] MEDS: Famotidine 20 MG TAB PO SCH ×2 (08:32→20:10)
[2018-03-06] MEDS: Saccharomyces boulardii 250 MG CAP PO SCH (08:33)
[2018-03-06] MEDS: Pregabalin 50 MG CAP PO SCH ×2 (08:33→20:09)
[2018-03-06] MEDS: Enoxaparin Sodium 40 MG/0.4 ML SYRINGE SC SCH (08:34)
[2018-03-06] MEDS: Morphine 2 MG/ML SYRINGE SLOW IVP PRN ×2 (08:35→20:10)
--- NOTE | 2018-03-06 10:58 | PDOC.PN ---
- Subjective Encounter Start Date: 03/06/18 Encounter Start Time: 08:50 -: old records requested/rev Patient seen and examined. No new complaints. No overnight events pt has less pain in his hand, dressing done - Objective Resuscitation Status - Order Detail: 03/05/18 07:29 Resuscitation Status Routine Resuscitation Status: FULL: Full Resuscitation MAR Reviewed: Yes Vital Signs & Weight: Vital Signs (12 hours) Temp Pulse Resp BP Pulse Ox 03/06/18 08:49 96 03/06/18 07:00 98.6 F 96 16 100/70 96 03/06/18 04:13 97.7 F 80 16 111/66 100 03/06/18 00:03 98.4 F 75 16 99/62 96 Weight Weight 224 lb 13.944 oz I&O: 03/05/18 03/06/18 03/07/18 06:59 06:59 06:59 Intake Total 2130 Balance 2130 Result Diagrams: 03/06/18 06:20 03/06/18 06:20 Phys Exam - Physical Examination Constitutional: NAD HEENT: PERRLA, moist MMs, sclera anicteric Neck: no JVD, supple Respiratory: no wheezing, no rales, no rhonchi Cardiovascular: RRR, no significant murmur, no rub Gastrointestinal: soft, non-tender, no distention, positive bowel sounds Musculoskeletal: no edema, pulses present right hand with dressing Neurological: non-focal, normal sensation, moves all 4 limbs Lymphatic: no nodes Psychiatric: normal affect, A&O x 3 Skin: no rash, normal turgor Dx/Plan (1) Cellulitis of right hand Code(s): L03.113 - CELLULITIS OF RIGHT UPPER LIMB Status: Acute (2) Acute renal failure Status: Resolved Comment: (3) Hypertension Code(s): I10 - ESSENTIAL (PRIMARY) HYPERTENSION Status: Chronic Comment: (4) Hypotension Status: Resolved Comment: (5) Sepsis with acute organ dysfunction Code(s): A41.9 - SEPSIS, UNSPECIFIED ORGANISM; R65.20 - SEVERE SEPSIS WITHOUT SEPTIC SHOCK Status: Acute (6) UTI (urinary tract infection) Status: Acute Comment: (7) COPD (chronic obstructive pulmonary disease) Status: Chronic Comment: (8) Chronic lower back pain Code(s): M54.5 - LOW BACK PAIN; G89.29 - OTHER CHRONIC PAIN Status: Chronic (9) Gout Code(s): M10.9 - GOUT, UNSPECIFIED Status: Chronic (10) Lung mass Code(s): R91.8 - OTHER NONSPECIFIC ABNORMAL FINDING OF LUNG FIELD Status: Chronic Comment: (11) HOA (obstructive sleep apnea) Code(s): G47.33 - OBSTRUCTIVE SLEEP APNEA (ADULT) (PEDIATRIC) Status: Chronic - Plan cont current plan of care, continue antibiotics * continue vancomycin and zosyn * as per hand surgeon, may need another I & D * wound care * pain control * as per pulmonary lung mass work up outpt * medication reviewed as below * symptomatic treatment. Review of Systems - Review of Systems ENT: negative: Ear Pain, Ear Discharge, Nose Pain, Nose Discharge, Nose Congestion, Mouth Pain, Mouth Swelling, Throat Pain, Throat Swelling, Other Respiratory: negative: Cough, Dry, Shortness of Breath, Hemoptysis, SOB with Excertion, Pleuritic Pain, Sputum, Wheezing Gastrointestinal: negative: Nausea, Vomiting, Abdominal Pain, Diarrhea, Constipation, Melena, Hematochezia, Other Genitourinary: negative: Dysuria, Frequency, Incontinence, Hematuria, Retention , Other Musculoskeletal: Hand Pain. negative: Neck Pain, Shoulder Pain, Arm Pain, Back Pain, Leg Pain, Foot Pain, Other - Medications/Allergies Allergies/Adverse Reactions: Allergies Allergy/AdvReac Type Severity Reaction Status Date / Time No Known Allergies Allergy Verified 05/20/15 00:46 Medications: Current Medications Acetaminophen (Tylenol) 650 mg PO Q4H PRN PRN Reason: Headache/Fever/Mild Pain (1-3) Hydrocodone Bitart/Acetaminophen ([place] 5/325) 1 tab PO Q4H PRN PRN Reason: Moderate Pain (4-6) Albuterol/Ipratropium (Duoneb) 3 ml NEB [id number] PRN PRN Reason: SOB &/or Wheezing Artificial Tears (Tears Naturale) 2 drop EA EYE PRN PRN PRN Reason: Dry Eyes Bisacodyl (Dulcolax) 10 mg PO DAILYPRN PRN PRN Reason: Constipation Bisacodyl (Dulcolax) 10 mg NE DAILYPRN PRN PRN Reason: Constipation Calcium Carbonate (Tums) 1,000 mg PO Q4H PRN PRN Reason: Heartburn or Indigestion Enoxaparin Sodium (Lovenox) 40 mg SC 0900 [facility] Last Admin: 03/06/18 08:34 Dose: 40 mg Famotidine (Pepcid) 20 mg PO BID [facility] Last Admin: 03/06/18 08:32 Dose: 20 mg Guaifenesin (Robitussin Sf) 200 mg PO Q4H PRN PRN Reason: Cough Hydralazine HCl (Apresoline) 10 mg SLOW IVP Q4H PRN PRN Reason: SBP > 180 and HR < 70 Piperacillin Sod/Tazobactam (Sod 2.25 gm/ Sodium Chloride) 100 mls @ 200 mls/ hr IVPB 0200,0800,1400,2000 [facility] Last Admin: 03/06/18 08:34 Dose: 100 mls Vancomycin HCl 1.5 gm/ Sodium (Chloride) 300 mls @ 200 mls/hr IVPB 0000 [facility] Last Admin: 03/05/18 23:53 Dose: 300 mls Loperamide HCl (Imodium) 2 mg PO PRN PRN PRN Reason: Diarrhea/Loose Stools Loratadine (Claritin) 10 mg PO DAILYPRN PRN PRN Reason: Sinus Symptoms Mineral Oil/White Petrolatum (Eucerin Cream) 0 gm TOP BIDPRN PRN PRN Reason: Dry Skin Miscellaneous Medication (Pharmacy To Dose) 1 each IVPB DAILYPRN PRN PRN Reason: LABS Morphine Sulfate (Morphine) 2 mg SLOW IVP Q4H PRN PRN Reason: Pain Last Admin: 03/06/18 08:35 Dose: 2 mg Ondansetron HCl (Zofran Odt) 4 mg PO Q6H PRN PRN Reason: Nausea/Vomiting Ondansetron HCl (Zofran) 4 mg IVP Q6H PRN PRN Reason: Nausea/Vomiting Pregabalin (Lyrica) 50 mg PO BID [facility] Last Admin: 03/06/18 08:33 Dose: 50 mg Saccharomyces Boulardii (Florastor) 250 mg PO DAILY [facility] Last Admin: 03/06/18 08:33 Dose: 250 mg Senna/Docusate Sodium (Senokot S) 2 tab PO BID PRN PRN Reason: Constipation Sodium Chloride ([place] Nasal [place] 0.65%) 0 ml EA NARE QIDPRN PRN PRN Reason: Nasal Congestion Sodium Chloride (Flush - Normal Saline) 10 ml IVF Q12HR [facility] Last Admin: 03/06/18 08:42 Dose: 10 ml Sodium Chloride (Flush - Normal Saline) 10 ml IVF PRN PRN PRN Reason: Saline Flush Throat Lozenges (Cepastat Lozenges) 1 lyla PO Q2H PRN PRN Reason: Sore Throat Tramadol HCl (Ultram) 50 mg PO Q6H PRN PRN Reason: Pain Zolpidem Tartrate (Ambien) 5 mg PO HSPRN PRN PRN Reason: Insomnia
[2018-03-06 12:11] LABS: Vancomycin, Random 18.2 ug/mL (See Comment)
[2018-03-06] MEDS: Vancomycin HCl 1.25 GM in Sodium Chloride 0.9% 250 ML 250 ML IVPB SCH (13:39)
--- NOTE | 2018-03-06 23:03 | EKG ---
Test Reason : LOW BP Blood Pressure : / mmHG Vent. Rate : 111 BPM Atrial Rate : 111 BPM P-R Int : 152 ms QRS Dur : 082 ms QT Int : 314 ms P-R-T Axes : 079 030 071 degrees QTc Int : 427 ms Sinus tachycardia Possible Left atrial enlargement Nonspecific T wave abnormality Abnormal ECG Confirmed by AMY CID, JUSTICE ([id number]), pictures editor MYRTLE PORTER ([id number]) on 03/06/2018 11:03:14 PM Referred By: Confirmed By:JUSTICE REYES MD
[2018-03-07] MEDS: Vancomycin HCl 1.25 GM in Sodium Chloride 0.9% 250 ML 250 ML IVPB SCH (00:42)
[2018-03-07] MEDS: Piperacillin/Tazobactam 2.25 GM in Sodium Chloride 0.9% 100 ML IVPB SCH ×2 (02:58→09:00)
[2018-03-07] MEDS: Morphine 2 MG/ML SYRINGE SLOW IVP PRN (04:07)
[2018-03-07] MEDS: Famotidine 20 MG TAB PO SCH ×2 (08:44→20:34)
[2018-03-07] MEDS: Pregabalin 50 MG CAP PO SCH ×2 (08:44→20:34)
[2018-03-07] MEDS: Saccharomyces boulardii 250 MG CAP PO SCH (08:45)
[2018-03-07] MEDS: Enoxaparin Sodium 40 MG/0.4 ML SYRINGE SC SCH (08:45)
[2018-03-07] MEDS: cefTRIAXone\\ROCEPHIN 2 GM in Sodium Chloride 0.9% 100 ML IVPB SCH (10:41)
[2018-03-07 11:02] LABS: #Basophils 0.1 thou/uL (0.0-0.2); #Eosinphils 0.4 thou/uL (0.0-0.7); #Lymphocytes 3.2 thou/uL (1.20-3.40); #Monocytes 0.9 thou/uL (0.11-0.59); #Neutrophils 4.8 thou/uL (1.40-6.50); %Eosinophils 4.2 % (0.0-10.0); %Lymphocytes 34.4 % (21.0-51.0); %Monocytes 9.4 % (0.0-10.0); Hemoglobin 12.5 g/dL (14.0-18.0); Mean Corpuscular HGB CONC 30.8 g/dL (32.0-36.0); Mean Corpuscular Hemoglobin 23.7 pg (27.0-31.0); Mean Platelet Volume 8.7 fL (7.4-10.4); Platelet Count 392 thou/uL (130-400); RBC Distribution Width 14.9 % (11.5-14.5); Red Blood Cell (RBC) Count 5.26 mill/uL (4.70-6.10); White Blood Cell (WBC) Count 9.4 thou/uL (4.8-10.8)
[2018-03-07] MEDS ORDERED: Ondansetron PF 4 MG/2 ML Vial ONE (11:12)
[2018-03-07] MEDS ORDERED: Ketorolac Tromethamine 30 MG/ML VIAL ONE (11:12)
[2018-03-07] MEDS ORDERED: Dexamethasone 20 MG/5 ML VIAL ONE (11:12)
[2018-03-07] MEDS ORDERED: PROPOFOL 200 MG/20 ML VIAL ONE (11:12)
[2018-03-07] MEDS ORDERED: Lidocaine 1% PF 5 ML VIAL ONE (11:12)
[2018-03-07 11:15] LABS: Anion Gap 13 mmol/L (10-20); BUN (Urea Nitrogen) 15 mg/dL (8.4-25.7); CRP (Inflammatory) 0.76 mg/dL (= or < 0.5); Calc. Creatinine Clearance 125 mL/min (70-130); Carbon Dioxide 26 mmol/L (22-29); Chloride 104 mmol/L (98-107); Estimated GFR-MDRD 84; Glucose 82 mg/dL (70-105); Potassium 4.6 mmol/L (3.5-5.1); Sodium 138 mmol/L (136-145)
[2018-03-07] MEDS ORDERED: Bupivacaine PF 0.5% 30 ML VIAL ONE (11:18)
[2018-03-07] MEDS ORDERED: Bacitracin Zinc Ointment 30 gm TUBE ONE (11:18)
[2018-03-07] MEDS ORDERED: Fentanyl 100 MCG/2 ML VIAL ONE ×2 (11:31→13:29)
--- NOTE | 2018-03-07 11:57 | PDOC.PN ---
- Subjective Encounter Start Date: 03/07/18 Encounter Start Time: 09:30 Patient seen and examined. No new complaints. No overnight events - Objective Resuscitation Status - Order Detail: 03/05/18 07:29 Resuscitation Status Routine Resuscitation Status: FULL: Full Resuscitation MAR Reviewed: Yes Vital Signs & Weight: Vital Signs (12 hours) Temp Pulse Resp BP BP Pulse Ox 03/07/18 08:52 99 03/07/18 07:10 97.6 F 58 L 16 131/86 99 03/07/18 04:13 97.4 F L 64 18 143/87 H 99 03/07/18 00:00 97.5 F L 92 18 145/83 H Weight Weight 224 lb 13.944 oz I&O: 03/06/18 03/07/18 03/08/18 06:59 06:59 06:59 Intake Total 2130 1560 Balance 2130 1560 Result Diagrams: 03/07/18 10:42 03/07/18 10:42 Phys Exam - Physical Examination Constitutional: NAD HEENT: PERRLA, moist MMs, sclera anicteric Neck: no JVD, supple Respiratory: no wheezing, no rales, no rhonchi Cardiovascular: RRR, no significant murmur, no rub Gastrointestinal: soft, non-tender, no distention, positive bowel sounds Musculoskeletal: no edema, pulses present right hand with dressing Neurological: non-focal, normal sensation, moves all 4 limbs Lymphatic: no nodes Psychiatric: normal affect, A&O x 3 Skin: no rash, normal turgor Dx/Plan (1) Cellulitis of right hand Code(s): L03.113 - CELLULITIS OF RIGHT UPPER LIMB Status: Acute (2) Acute renal failure Status: Resolved Comment: (3) Hypertension Code(s): I10 - ESSENTIAL (PRIMARY) HYPERTENSION Status: Chronic Comment: (4) Hypotension Status: Resolved Comment: (5) Sepsis with acute organ dysfunction Code(s): A41.9 - SEPSIS, UNSPECIFIED ORGANISM; R65.20 - SEVERE SEPSIS WITHOUT SEPTIC SHOCK Status: Acute (6) UTI (urinary tract infection) Status: Acute Comment: (7) COPD (chronic obstructive pulmonary disease) Status: Chronic Comment: (8) Chronic lower back pain Code(s): M54.5 - LOW BACK PAIN; G89.29 - OTHER CHRONIC PAIN Status: Chronic (9) Gout Code(s): M10.9 - GOUT, UNSPECIFIED Status: Chronic (10) Lung mass Code(s): R91.8 - OTHER NONSPECIFIC ABNORMAL FINDING OF LUNG FIELD Status: Chronic Comment: (11) HOA (obstructive sleep apnea) Code(s): G47.33 - OBSTRUCTIVE SLEEP APNEA (ADULT) (PEDIATRIC) Status: Chronic - Plan cont current plan of care, continue antibiotics * Given MSSA infection in right hand today will narrow antibiotics to rocephin 2 gm IV daily * today he is planned for surgical debridement by hand surgeon * medication reviewed as below * symptomatic treatment * pain controlled. Review of Systems - Review of Systems ENT: negative: Ear Pain, Ear Discharge, Nose Pain, Nose Discharge, Nose Congestion, Mouth Pain, Mouth Swelling, Throat Pain, Throat Swelling, Other Respiratory: negative: Cough, Dry, Shortness of Breath, Hemoptysis, SOB with Excertion, Pleuritic Pain, Sputum, Wheezing Cardiovascular: negative: chest pain, palpitations, orthopnea, paroxysmal nocturnal dyspnea, edema, light headedness, other Gastrointestinal: negative: Nausea, Vomiting, Abdominal Pain, Diarrhea, Constipation, Melena, Hematochezia, Other Genitourinary: negative: Dysuria, Frequency, Incontinence, Hematuria, Retention , Other Musculoskeletal: Hand Pain. negative: Neck Pain, Shoulder Pain, Arm Pain, Back Pain, Leg Pain, Foot Pain, Other Skin: negative: Rash, Lesions, Mike, Bruising, Other - Medications/Allergies Allergies/Adverse Reactions: Allergies Allergy/AdvReac Type Severity Reaction Status Date / Time No Known Allergies Allergy Verified 05/20/15 00:46 Medications: Current Medications Acetaminophen (Tylenol) 650 mg PO Q4H PRN PRN Reason: Headache/Fever/Mild Pain (1-3) Hydrocodone Bitart/Acetaminophen ([place] 5/325) 1 tab PO Q4H PRN PRN Reason: Moderate Pain (4-6) Albuterol/Ipratropium (Duoneb) 3 ml NEB [id number] PRN PRN Reason: SOB &/or Wheezing Artificial Tears (Tears Naturale) 2 drop EA EYE PRN PRN PRN Reason: Dry Eyes Bisacodyl (Dulcolax) 10 mg PO DAILYPRN PRN PRN Reason: Constipation Bisacodyl (Dulcolax) 10 mg MS DAILYPRN PRN PRN Reason: Constipation Calcium Carbonate (Tums) 1,000 mg PO Q4H PRN PRN Reason: Heartburn or Indigestion Enoxaparin Sodium (Lovenox) 40 mg SC 0900 [facility] Last Admin: 03/07/18 08:45 Dose: Not Given Famotidine (Pepcid) 20 mg PO BID [facility] Last Admin: 03/07/18 08:44 Dose: 20 mg Guaifenesin (Robitussin Sf) 200 mg PO Q4H PRN PRN Reason: Cough Hydralazine HCl (Apresoline) 10 mg SLOW IVP Q4H PRN PRN Reason: SBP > 180 and HR < 70 Ceftriaxone Sodium 2 gm/ (Sodium Chloride) 100 mls @ 200 mls/hr IVPB 1000 [facility] Last Admin: 03/07/18 10:41 Dose: 100 mls Loperamide HCl (Imodium) 2 mg PO PRN PRN PRN Reason: Diarrhea/Loose Stools Loratadine (Claritin) 10 mg PO DAILYPRN PRN PRN Reason: Sinus Symptoms Mineral Oil/White Petrolatum (Eucerin Cream) 0 gm TOP BIDPRN PRN PRN Reason: Dry Skin Morphine Sulfate (Morphine) 2 mg SLOW IVP Q4H PRN PRN Reason: Pain Last Admin: 03/07/18 04:07 Dose: 2 mg Ondansetron HCl (Zofran Odt) 4 mg PO Q6H PRN PRN Reason: Nausea/Vomiting Ondansetron HCl (Zofran) 4 mg IVP Q6H PRN PRN Reason: Nausea/Vomiting Pregabalin (Lyrica) 50 mg PO BID [facility] Last Admin: 03/07/18 08:44 Dose: 50 mg Saccharomyces Boulardii (Florastor) 250 mg PO DAILY [facility] Last Admin: 03/07/18 08:45 Dose: 250 mg Senna/Docusate Sodium (Senokot S) 2 tab PO BID PRN PRN Reason: Constipation Sodium Chloride ([place] Nasal [place] 0.65%) 0 ml EA NARE QIDPRN PRN PRN Reason: Nasal Congestion Sodium Chloride (Flush - Normal Saline) 10 ml IVF Q12HR [facility] Last Admin: 03/07/18 10:41 Dose: 10 ml Sodium Chloride (Flush - Normal Saline) 10 ml IVF PRN PRN PRN Reason: Saline Flush Throat Lozenges (Cepastat Lozenges) 1 lyla PO Q2H PRN PRN Reason: Sore Throat Tramadol HCl (Ultram) 50 mg PO Q6H PRN PRN Reason: Pain Zolpidem Tartrate (Ambien) 5 mg PO HSPRN PRN PRN Reason: Insomnia
[2018-03-07] MEDS ORDERED: Morphine Sulfate 2 MG/ML SYRINGE SLOW IVP PRN (12:27)
[2018-03-07] MEDS ORDERED: Ondansetron HCl/PF 4 MG/2 ML Vial IVP PRN (12:27)
[2018-03-07] MEDS ORDERED: Meperidine HCl/PF 25 MG/ML VIAL SLOW IVP PRN (12:27)
[2018-03-07] MEDS ORDERED: PACU-Morphine 4MG/ML VIAL SLOW IVP PRN (12:27)
[2018-03-07] MEDS ORDERED: Promethazine HCl 25 MG/ML VIAL IM PRN (12:27)
[2018-03-07] MEDS ORDERED: Ketorolac Tromethamine 30 MG/ML VIAL IVP PRN (12:27)
[2018-03-07] MEDS ORDERED: HYDROmorphone 2 MG/ML VIAL SLOW IVP PRN (12:27)
[2018-03-07] MEDS ORDERED: Promethazine HCl 25 MG/ML VIAL SLOW IVP PRN (12:27)
[2018-03-07] MEDS: Morphine 4 MG/ML VIAL SLOW IVP PRN (18:09)
[2018-03-08] MEDS: Morphine 4 MG/ML VIAL SLOW IVP PRN ×3 (01:00→23:56)
[2018-03-08] MEDS: Saccharomyces boulardii 250 MG CAP PO SCH (07:45)
[2018-03-08] MEDS: Pregabalin 50 MG CAP PO SCH ×2 (07:45→20:29)
[2018-03-08] MEDS: Enoxaparin Sodium 40 MG/0.4 ML SYRINGE SC SCH (07:45)
[2018-03-08] MEDS: Famotidine 20 MG TAB PO SCH ×2 (07:46→20:29)
[2018-03-08] MEDS: cefTRIAXone\\ROCEPHIN 2 GM in Sodium Chloride 0.9% 100 ML IVPB SCH (10:17)
--- NOTE | 2018-03-08 11:27 | PDOC.PN ---
- Subjective Encounter Start Date: 03/08/18 Encounter Start Time: 08:15 Patient seen and examined. No new complaints. No overnight events - Objective Resuscitation Status - Order Detail: 03/05/18 07:29 Resuscitation Status Routine Resuscitation Status: FULL: Full Resuscitation MAR Reviewed: Yes Vital Signs & Weight: Vital Signs (12 hours) Temp Pulse Resp BP Pulse Ox 03/08/18 10:55 98.2 F 80 18 155/88 H 99 03/08/18 08:00 99 03/08/18 07:50 65 03/08/18 07:40 97.7 F 65 18 168/104 H 99 03/08/18 04:00 97.7 F 81 16 144/85 H 99 Weight Weight 224 lb 13.944 oz I&O: 03/07/18 03/08/18 03/09/18 06:59 06:59 06:59 Intake Total 1560 2360 240 Balance 1560 2360 240 Result Diagrams: 03/07/18 10:42 03/07/18 10:42 Phys Exam - Physical Examination Constitutional: NAD HEENT: PERRLA, moist MMs, sclera anicteric Neck: no JVD, supple Respiratory: no wheezing, no rales, no rhonchi Cardiovascular: RRR, no significant murmur, no rub Gastrointestinal: soft, non-tender, no distention, positive bowel sounds Musculoskeletal: no edema, pulses present right hand with dressing Neurological: non-focal, normal sensation, moves all 4 limbs Lymphatic: no nodes Psychiatric: normal affect, A&O x 3 Skin: no rash, normal turgor Dx/Plan (1) Cellulitis of right hand Code(s): L03.113 - CELLULITIS OF RIGHT UPPER LIMB Status: Acute (2) Acute renal failure Status: Resolved Comment: (3) Hypertension Code(s): I10 - ESSENTIAL (PRIMARY) HYPERTENSION Status: Chronic Comment: (4) Hypotension Status: Resolved Comment: (5) Sepsis with acute organ dysfunction Code(s): A41.9 - SEPSIS, UNSPECIFIED ORGANISM; R65.20 - SEVERE SEPSIS WITHOUT SEPTIC SHOCK Status: Acute (6) UTI (urinary tract infection) Status: Acute Comment: (7) COPD (chronic obstructive pulmonary disease) Status: Chronic Comment: (8) Chronic lower back pain Code(s): M54.5 - LOW BACK PAIN; G89.29 - OTHER CHRONIC PAIN Status: Chronic (9) Gout Code(s): M10.9 - GOUT, UNSPECIFIED Status: Chronic (10) Lung mass Code(s): R91.8 - OTHER NONSPECIFIC ABNORMAL FINDING OF LUNG FIELD Status: Chronic Comment: (11) HOA (obstructive sleep apnea) Code(s): G47.33 - OBSTRUCTIVE SLEEP APNEA (ADULT) (PEDIATRIC) Status: Chronic - Plan cont current plan of care, continue antibiotics * continue rocephin for now * wound care * pulmonary to decide about biopsy of lung mass inpt vs outpt * will consider discharge when hand surgeon ok, may be tomorrow * continue rocephin today * medication reviewed as below * symptomatic treatment. Review of Systems - Review of Systems ENT: negative: Ear Pain, Ear Discharge, Nose Pain, Nose Discharge, Nose Congestion, Mouth Pain, Mouth Swelling, Throat Pain, Throat Swelling, Other Respiratory: negative: Cough, Dry, Shortness of Breath, Hemoptysis, SOB with Excertion, Pleuritic Pain, Sputum, Wheezing Cardiovascular: negative: chest pain, palpitations, orthopnea, paroxysmal nocturnal dyspnea, edema, light headedness, other Gastrointestinal: negative: Nausea, Vomiting, Abdominal Pain, Diarrhea, Constipation, Melena, Hematochezia, Other Genitourinary: negative: Dysuria, Frequency, Incontinence, Hematuria, Retention , Other Musculoskeletal: negative: Neck Pain, Shoulder Pain, Arm Pain, Back Pain, Hand Pain, Leg Pain, Foot Pain, Other - Medications/Allergies Allergies/Adverse Reactions: Allergies Allergy/AdvReac Type Severity Reaction Status Date / Time No Known Allergies Allergy Verified 05/20/15 00:46 Medications: Current Medications Acetaminophen (Tylenol) 650 mg PO Q4H PRN PRN Reason: Headache/Fever/Mild Pain (1-3) Hydrocodone Bitart/Acetaminophen ([place] 5/325) 1 tab PO Q4H PRN PRN Reason: Moderate Pain (4-6) Last Admin: 03/08/18 07:53 Dose: 1 tab Albuterol/Ipratropium (Duoneb) 3 ml NEB [id number] PRN PRN Reason: SOB &/or Wheezing Artificial Tears (Tears Naturale) 2 drop EA EYE PRN PRN PRN Reason: Dry Eyes Bisacodyl (Dulcolax) 10 mg PO DAILYPRN PRN PRN Reason: Constipation Bisacodyl (Dulcolax) 10 mg MO DAILYPRN PRN PRN Reason: Constipation Calcium Carbonate (Tums) 1,000 mg PO Q4H PRN PRN Reason: Heartburn or Indigestion Enoxaparin Sodium (Lovenox) 40 mg SC 0900 [facility] Last Admin: 03/08/18 07:45 Dose: 40 mg Famotidine (Pepcid) 20 mg PO BID [facility] Last Admin: 03/08/18 07:46 Dose: 20 mg Guaifenesin (Robitussin Sf) 200 mg PO Q4H PRN PRN Reason: Cough Hydralazine HCl (Apresoline) 10 mg SLOW IVP Q4H PRN PRN Reason: SBP > 180 and HR < 70 Last Admin: 03/08/18 07:50 Dose: 10 mg Ceftriaxone Sodium 2 gm/ (Sodium Chloride) 100 mls @ 200 mls/hr IVPB 1000 [facility] Last Admin: 03/08/18 10:17 Dose: 100 mls Loperamide HCl (Imodium) 2 mg PO PRN PRN PRN Reason: Diarrhea/Loose Stools Loratadine (Claritin) 10 mg PO DAILYPRN PRN PRN Reason: Sinus Symptoms Mineral Oil/White Petrolatum (Eucerin Cream) 0 gm TOP BIDPRN PRN PRN Reason: Dry Skin Morphine Sulfate (Morphine) 4 mg SLOW IVP Q2H PRN PRN Reason: Pain Last Admin: 03/08/18 01:00 Dose: 4 mg Ondansetron HCl (Zofran Odt) 4 mg PO Q6H PRN PRN Reason: Nausea/Vomiting Ondansetron HCl (Zofran) 4 mg IVP Q6H PRN PRN Reason: Nausea/Vomiting Pregabalin (Lyrica) 50 mg PO BID [facility] Last Admin: 03/08/18 07:45 Dose: 50 mg Saccharomyces Boulardii (Florastor) 250 mg PO DAILY [facility] Last Admin: 03/08/18 07:45 Dose: 250 mg Senna/Docusate Sodium (Senokot S) 2 tab PO BID PRN PRN Reason: Constipation Sodium Chloride ([place] Nasal [place] 0.65%) 0 ml EA NARE QIDPRN PRN PRN Reason: Nasal Congestion Sodium Chloride (Flush - Normal Saline) 10 ml IVF Q12HR [facility] Last Admin: 03/08/18 07:46 Dose: 10 ml Sodium Chloride (Flush - Normal Saline) 10 ml IVF PRN PRN PRN Reason: Saline Flush Last Admin: 03/07/18 18:11 Dose: 10 ml Throat Lozenges (Cepastat Lozenges) 1 lyla PO Q2H PRN PRN Reason: Sore Throat Tramadol HCl (Ultram) 50 mg PO Q6H PRN PRN Reason: Pain Zolpidem Tartrate (Ambien) 5 mg PO HSPRN PRN PRN Reason: Insomnia
--- NOTE | 2018-03-08 15:22 | OP ---
DATE OF PROCEDURE: 03/07/2018 PREOPERATIVE DIAGNOSIS: Right hand 12 cm wound with no infection. POSTOPERATIVE DIAGNOSIS: Right hand 12 cm wound with no infection. FINDINGS: 1. Fibrinous material over the tendon, mostly exposed tendon sheath proximal to the MCP joint and good paratenon distal with no evidence of joint or subtendinous infection. 2. Minimal wound edge necrosis approximately 2 mm wide x 6 mm area just proximal to the metacarpophalangeal joint with infection . PROCEDURES PERFORMED: 1. Debridement of wound, 12 cm right hand. This included: a. Use of tenotomy scissors, [place] blade, curette, and 3 L of Pulsavac irrigation. b. Excisional technique. c. joint capsule and no bone involvement. d. There is no infection found on minimal wound edge necrosis as described above. 2. Closure wound complex multiple layers using the cutaneous suture techniques, 12 cm wound in right hand. 3. Application of short-arm splint, metacarpophalangeal joints free. DESCRIPTION OF PROCEDURE: After successful general LMA technique, the limb was prepped and draped his IV site, so we did not use a sterile tourniquet. After this, we inspected the wound and found no gross purulence, wound edges had no evidence of necrosis except for an area approximately 2 cm long x 2 to 3 mm wide, this was resected. We then had bleeding skin edges all the way around circumferentially and once we obtained hemostasis, we finished removing the fibrinous material on and around the paratenon with blunt and sharp dissection. We then finished our irrigation, obtained hemostasis, and closed the wound complex method using several small subcutaneous sutures and then mattress suture, first horizontal then vertical. The patient then left the operating room with the wound closed and no evidence of anesthetic operative complication. Bulky dressing and short-arm splint after given 20 mL of 0.5% Marcaine in a pinky-incisional block technique. Job ID: [id number]
[2018-03-09] MEDS: Enoxaparin Sodium 40 MG/0.4 ML SYRINGE SC SCH (08:28)
[2018-03-09] MEDS: Saccharomyces boulardii 250 MG CAP PO SCH (08:29)
[2018-03-09] MEDS: Pregabalin 50 MG CAP PO SCH (08:29)
[2018-03-09] MEDS: Famotidine 20 MG TAB PO SCH (08:29)
[2018-03-09] MEDS: Morphine 4 MG/ML VIAL SLOW IVP PRN (08:32)
[2018-03-09] MEDS: cefTRIAXone\\ROCEPHIN 2 GM in Sodium Chloride 0.9% 100 ML IVPB SCH (10:13)
[2018-03-09 10:26] VITALS: BP 148/88; TEMP 98.2
--- NOTE | 2018-03-09 12:02 | DIS ---
DATE OF ADMISSION: 03/05/2018 DATE OF DISCHARGE: 03/09/2018 PRIMARY CARE PHYSICIAN: [facility]. DISCHARGE DISPOSITION: Home. PRIMARY DISCHARGE DIAGNOSES: Right hand cellulitis, status post incision and debridement, sepsis with acute organ dysfunction, urinary tract infection, acute kidney failure, and hypotension. SECONDARY DISCHARGE DIAGNOSES: Obstructive sleep apnea, lung mass, hypertension, gout, chronic obstructive pulmonary disease, and chronic low back pain. PRIMARY PROCEDURE/OPERATION: Incision and debridement were performed by Dr. Andrei Bernstein. RADIOLOGICAL INVESTIGATION: Chest x-ray showed lung mass. CT chest also confirmed lung mass. SIGNIFICANT LABORATORY DATA: WBC 9.4, hemoglobin 12.5, and platelet 392. Sodium 138, potassium 4.6, BUN 15, creatinine 0.92, and calcium 10.0. CRP 0.76. LFT normal. Urinalysis suggestive of UTI. Blood culture negative. Wound culture grew Staph aureus. DISCHARGE MEDICATIONS: 1. Keflex 500 mg p.o. t.i.d. for 10 days. 2. Tramadol 50 mg q.8 hourly p.r.n. 3. Lyrica 50 mg p.o. b.i.d. 4. Olmesartan with hydrochlorothiazide 40/25 one tablet p.o. daily. CONTRAINDICATION: None. CODE STATUS: Full code. INPATIENT [employer] SUPERVISOR: Dr. Foster was consulted for lung mass. Dr. Andrei Bernstein was consulted for cellulitis. TEST RESULT PENDING ON DISCHARGE: None. ALLERGIES: NO KNOWN DRUG ALLERGIES. DISCHARGE PLAN: [facility]hospital[facility] The patient will follow up with Dr. Bernstein in 2 weeks and the patient is instructed to make appointment with Dr. Mccauley as well as possible. HOSPITAL COURSE: A 58-year-old male, who was admitted to the hospital for right hand pain and he was having hypotension. He was diagnosed with acute kidney failure with routine blood test in the emergency room. This patient had recently hand cellulitis, which required I and D by Dr. Bernstein and he was given Bactrim DS. The patient was having increasing pain and increasing purulent drainage and that is why he came to the hospital. He was found with acute kidney failure, which we suspected from hypotension versus Bactrim. His creatinine on admission was 2.67. He was hydrated with IV fluid and by the time of discharge, his creatinine improved to normal, 0.92. We consulted Dr. Bernstein for I and D for cellulitis/abscess of right hand, which required incision and debridement. Culture from wound grew Staph aureus, which was MSSA and that is why we changed antibiotic therapy from vancomycin and Zosyn on admission to Rocephin on discharge. Subsequently, we prescribed Keflex for another 10 days. This patient has lung mass and that is why we consulted Pulmonology for opinion and they recommended that the patient will need outpatient followup and that is why the patient is instructed to make appointment with Dr. Mccauley for outpatient evaluation. All new medication prescription given to him. The patient is medically stable for discharge. The patient is seen and examined at bedside today. All review of systems reviewed with him are negative. His examination and vital signs are normal. Job ID: [id number]
== END 2018-03-09 11:43 | disposition home or self-care (01) | DRG 872 ==
LOC: ERS 21:23 → ERHOLD 03-05 01:03 → T4-A 03-05 14:37
PROVIDERS: ADMIT Internal Medicine; ATTEND Internal Medicine
PROC: 0HBFXZZ Excision of Right Hand Skin, External Approach (ICD-10-PCS; principal; 2018-03-07)
DX: A41.9 Sepsis, unspecified organism (principal); L03.113 Cellulitis of right upper limb; N17.9 Acute kidney failure, unspecified; L02.511 Cutaneous abscess of right hand; N39.0 Urinary tract infection, site not specified; R91.8 Other nonspecific abnormal finding of lung field; J44.9 Chronic obstructive pulmonary disease, unspecified; R65.20 Severe sepsis without septic shock; G47.33 Obstructive sleep apnea (adult) (pediatric); I10 Essential (primary) hypertension; G47.419 Narcolepsy without cataplexy; M10.9 Gout, unspecified; F41.9 Anxiety disorder, unspecified; F32.9 Major depressive disorder, single episode, unspecified; E66.9 Obesity, unspecified; Z68.32 Body mass index [BMI] 32.0-32.9, adult; M54.5 Low back pain; G89.29 Other chronic pain; B95.61 Methicillin susceptible Staphylococcus aureus infection as the cause of diseases classified elsewhere; Z87.891 Personal history of nicotine dependence
CPT/HCPCS: 36415; 71045; 71250; 80048; 80053; 80202; 81003; 81015; 83605; 84550; 85025; 86140; 87040; 87070; 87077; 87186; 87205; 93005; 94760; 96361; 96365; 96366; 96367; J0360; J0696; J1100; J1650; J1885; J2001; J2270; J2405; J2543; J2704; J3010; J3370; J3490; J7050; S0020

== ENCOUNTER 2018-09-05 16:35 | Inpatient (IN) | payer SELFPAY ==
--- NOTE | 2018-09-05 17:04 | CT ---
CT head noncontrast HISTORY: Altered mental status. Weakness. COMPARISON: 12/21/2017. FINDINGS: There is no evidence of acute intracranial hemorrhage or infarct. The ventricles appear nor mal in size, shape and position. There is no mass effect or shift of midline structures. Visualized paranasal sinuses remain well aerated. IMPRESSION: No acute intracranial abnormalities are demonstrated. Findings were called to Dr. Cárdenas in the emergency department at 1657 hours. Code CR.
[2018-09-05 17:06] LABS: #Eosinphils 0.1 thou/uL (0.0-0.7); #Lymphocytes 1.8 thou/uL (1.20-3.40); #Monocytes 1.1 thou/uL (0.11-0.59); #Neutrophils 12.8 thou/uL (1.40-6.50); %Eosinophils 0.8 % (0.0-10.0); %Lymphocytes 11.5 % (21.0-51.0); %Monocytes 6.9 % (0.0-10.0); %Neutrophils 80.8 % (42.0-75.0); Hemoglobin 12.1 g/dL (14.0-18.0); Mean Corpuscular HGB CONC 32.6 g/dL (32.0-36.0); Mean Corpuscular Hemoglobin 23.3 pg (27.0-31.0); Mean Corpuscular Volume 71.5 fL (78.0-98.0); Mean Platelet Volume 8.9 fL (7.4-10.4); Platelet Count 349 thou/uL (130-400); RBC Distribution Width 14.9 % (11.5-14.5); White Blood Cell (WBC) Count 15.9 thou/uL (4.8-10.8)
[2018-09-05 17:11] LABS: Prothrombin Time 14.9 SEC (12.0-14.7)
[2018-09-05 17:12] LABS: INR-International Normal Ratio 1.2
[2018-09-05 17:25] LABS: ALT (SGPT) 17 U/L (8-55); AST (SGOT) 22 U/L (5-34); Albumin 4.3 g/dL (3.5-5.0); Alkaline Phosphatase 167 U/L (40-150); Anion Gap 16 mmol/L (10-20); BUN (Urea Nitrogen) 38 mg/dL (8.4-25.7); Bilirubin, Total 0.8 mg/dL (0.2-1.2); CK (CPK) 356 U/L (30-200); Calc. Creatinine Clearance 0 mL/min (70-130); Calcium 9.8 mg/dL (7.8-10.44); Carbon Dioxide 23 mmol/L (22-29); Chloride 102 mmol/L (98-107); Estimated GFR-MDRD 20; Globulin 3.4 g/dL (2.4-3.5); Glucose 151 mg/dL (70-105); Lipase 22 U/L (8-78); Potassium 4.2 mmol/L (3.5-5.1); Protein, Total 7.7 g/dL (6.0-8.3); Sodium 137 mmol/L (136-145)
[2018-09-05 17:26] LABS: Hypochromia SLIGHT = 6-15 cells (100X) (0-5/hpf); MDiff Complete? YES; Microcytosis SLIGHT = 6-15 cells (100X) (0-5/hpf); Ovalocytes SLIGHT = 2-5 cells (100X) (0-1/hpf); Platelet Morphology Comment Appears Adequate; Polychromasia SLIGHT = 2-3 cells (100X) (0-2/hpf)
[2018-09-05 17:29] LABS: Acetaminophen Less than 6.0 mcg/mL (10.0-30.0); Alcohol Less than 10 mg/dL (Less than 10); Salicylate Less than 8.0 mg/dL (15.0-30.0)
--- NOTE | 2018-09-05 17:41 | RAD ---
CHEST ONE VIEW: INDICATIONS: History of stumbling when walking and weakness. COMPARISON: Prior exam dated 03/04/2018. FINDINGS: The large left-sided chest mass within the region of the lingula has increased in size, now measuring 9.2 cm in greatest craniocaudad dimension, where it previously measured 7.2 cm. The right lung emph ysematous changes are similar appearing. The osseous structures are unchanged. IMPRESSION: Enlarging left lingular lung mass compared to the prior dated 03/04/2018. POS: BH
[2018-09-05] MEDS ORDERED: Acetaminophen 325 MG TAB PO PRN (19:23)
[2018-09-05] MEDS ORDERED: Bisacodyl 5 MG TAB PO PRN (19:23)
[2018-09-05] MEDS ORDERED: Ondansetron PF 4 MG/2 ML Vial IVP PRN (19:23)
[2018-09-05 20:24] LABS: Bilirubin Negative (Negative); Blood, Urine Negative (Negative); Clarity Clear (Clear); Glucose, Urine (Dipstick) Normal (Negative); Leukocyte Negative Leu/uL (Negative); Nitrite Negative (Negative); Protein, Urine (Dipstick) 20 mg/dL (Neg-Trace); Urobilinogen Normal mg/dL (Less than 2)
[2018-09-05 20:32] LABS: Amphetamine Detected (NotDetected); Barbiturates Screen Not Detected (NotDetected); Benzodiazepine Screen Not Detected (NotDetected); Cocaine Metabolite Screen Not Detected (NotDetected); Medtox Control Line Valid? VALID (VALID); Medtox Reader # READER 1; Methadone Not Detected (NotDetected); Methamphetamine Detected (NotDetected); Opiate Screen Detected (NotDetected); Oxycodone Screen Not Detected (NotDetected); Phencyclidine (PCP) Not Detected (NotDetected); THC/Cannabinoid Screen Not Detected (NotDetected); Tricyclic Screen Not Detected (NotDetected)
--- NOTE | 2018-09-05 21:08 | HP ---
PRIMARY CARE PROVIDER: Dr. Gifty Malik at [facility] in [place]. CHIEF COMPLAINT: Weakness. HISTORY OF PRESENT ILLNESS: Mr. Barrera is a pleasant 58-year-old gentleman, who was seen at [facility] on September 05, 2018. The patient is able to provide history. He reports that over the last 3 days he has been working outside on his porch. The days were hot. He also reports that he has on and off episodes of dizziness, attributed to inner ear problems. Today morning, he was stumbling while walking. He reports feeling dizzy and having generalized weakness and being unable to walk straight. He reportedly fell multiple times before his came to pick him up. The patient reportedly had some slurred speech, but his reported to the emergency room physician that this is a chronic issue when he gets sleepy. In the emergency room, the patient was found to be hypotensive. He is receiving intravenous fluid resuscitation and has been referred to Hospitalist Service for admission to the hospital. REVIEW OF SYSTEMS: All other systems reviewed and found to be negative. PAST MEDICAL HISTORY: COPD, obstructive sleep apnea syndrome, hypertension, narcolepsy, gout, lung mass for which he does not appear to be following up with Pulmonology Service and cellulitis of right hand. PAST SURGICAL HISTORY: Incision and drainage for cellulitis/abscess over the right hand and gastric sleeve surgery. PSYCHIATRIC HISTORY: Anxiety and depression. SOCIAL HISTORY: The patient is an ex-smoker. He reports occasional alcohol use. He denies any recreational drug use. FAMILY HISTORY: The patient denies any family history of premature coronary artery disease. ALLERGIES: NO KNOWN DRUG ALLERGIES. CURRENT MEDICATIONS: 1. Tramadol p.r.n. 2. Lyrica 150 mg b.i.d. 3. Benicar 20 mg daily. PHYSICAL EXAMINATION: GENERAL: On examination, Mr. Barrera is awake and alert, not in acute distress. VITAL SIGNS: Blood pressure is 111/66, pulse 81, respiratory rate 14, and oxygen saturation 93% on room air. Earlier, he had blood pressure of 73/48. His pulse has been normal. He is afebrile. EYES: No scleral icterus, no conjunctival pallor. ENT: Dry mucosal membranes. No oropharyngeal erythema or exudates. NECK: Supple, nontender, trachea is midline. RESPIRATORY: Accessory muscles of breathing are not active. Chest wall movements are symmetric bilaterally. Lungs are clear to auscultation, without wheeze, rhonchi, or crepitations. CARDIOVASCULAR: S1 and S2 are heard, regular. Peripheral pulses palpable. No carotid bruit. No pericardial rub. ABDOMEN: Soft, nontender, bowel sounds heard, no hepatomegaly, no splenomegaly. NEUROLOGIC: Cranial nerves 2 through 12 are intact. No focal motor or sensory deficits. Power is 5/5 in all 4 extremities. Deep tendon reflexes 2+, plantars downgoing bilaterally. SKIN: No rashes or subcutaneous nodules. LYMPHATIC: No cervical lymphadenopathy. PSYCHIATRIC: The patient is sleepy, but arousable, normal mood, oriented to person, place, and time. LABORATORY DATA: Mr. Barrera' labs and investigations were reviewed. I reviewed his electrocardiogram, which shows normal sinus rhythm, no ST changes to suggest an acute coronary syndrome. I also reviewed his chest x-ray, which shows left lingular lung mass. He has leukocytosis with 15,900 white cells, of which 80% are neutrophils. He has microcytic anemia with hemoglobin 12.1, normal platelet count, INR 1.2, normal electrolytes, elevated blood urea nitrogen of 38, elevated creatinine 3.23, last known creatinine 0.92 in February 2018, elevated alkaline phosphatase of 167, elevated creatine kinase of 356, normal total bilirubin, normal AST, normal ALT, normal lipase, and normal BNP. Lactic acid level is normal at 1.1. Plasma alcohol is less than 10. Urinalysis and urine drug screen are pending. ASSESSMENT AND PLAN: Mr. Barrera is a pleasant 58-year-old gentleman, who was seen at [facility] on March 08, 2018. His problem list includes: 1. Acute kidney injury: Mr. Barrera is presenting with acute kidney injury, most likely secondary to dehydration. He will be admitted to the hospital for further management. He will receive intravenous fluids. Creatinine will be rechecked. Potassium is normal. 2. Hypotension: This is most likely secondary to dehydration. Blood pressure has improved with intravenous fluids. If urinalysis is positive for urinary tract infection, he will be treated with antibiotics for suspected infection as a cause of hypotension. If hypotension does not resolve, we will check 2D echocardiogram to rule out cardiac etiology for hypotension. 3. Rhabdomyolysis: Mild, we will provide intravenous hydration and recheck creatine kinase level. 4. Abnormal LFTs: The patient had elevated alkaline phosphatase level in the past as well. We will recheck LFTs in the morning. We will also check gamma-glutamyl transferase level to determine etiology of elevated alkaline phosphatase. 5. Lung mass: Pulmonology Service being consulted for opinion and help with management. Many thanks for allowing me to participate in your patient's care. Please feel free to contact me with any questions or concerns. LEVEL OF RISK: High. LEVEL OF COMPLEXITY: High. Job ID: [id number]
[2018-09-06 00:54] VITALS: BMI 31.4
[2018-09-06] MEDS: Heparin 5,000 UNITS/ML VIAL SC SCH ×4 (01:40→22:04)
[2018-09-06 05:50] LABS: #Basophils 0.1 thou/uL (0.0-0.2); #Eosinphils 0.3 thou/uL (0.0-0.7); #Lymphocytes 2.5 thou/uL (1.20-3.40); %Basophils 0.6 % (0.0-1.0); %Eosinophils 3.1 % (0.0-10.0); %Lymphocytes 25.4 % (21.0-51.0); %Monocytes 10.3 % (0.0-10.0); %Neutrophils 60.5 % (42.0-75.0); Hemoglobin 11.1 g/dL (14.0-18.0); Mean Corpuscular HGB CONC 31.5 g/dL (32.0-36.0); Mean Corpuscular Hemoglobin 23.3 pg (27.0-31.0); Mean Corpuscular Volume 74.1 fL (78.0-98.0); Mean Platelet Volume 8.8 fL (7.4-10.4); Platelet Count 264 thou/uL (130-400); Red Blood Cell (RBC) Count 4.74 mill/uL (4.70-6.10); White Blood Cell (WBC) Count 9.9 thou/uL (4.8-10.8)
[2018-09-06 06:07] LABS: Anion Gap 11 mmol/L (10-20); BUN (Urea Nitrogen) 36 mg/dL (8.4-25.7); Calc. Creatinine Clearance 67 mL/min (70-130); Carbon Dioxide 22 mmol/L (22-29); Chloride 109 mmol/L (98-107); Estimated GFR-MDRD 44; Glucose 97 mg/dL (70-105); Potassium 3.8 mmol/L (3.5-5.1); Sodium 138 mmol/L (136-145)
[2018-09-06 06:10] LABS: ALT (SGPT) 11 U/L (8-55); AST (SGOT) 17 U/L (5-34); Albumin 3.4 g/dL (3.5-5.0); Alkaline Phosphatase 139 U/L (40-150); Bilirubin, Direct 0.2 mg/dL (0.1-0.3); Bilirubin, Total 0.4 mg/dL (0.2-1.2); Gamma GT (GGT) Less than 6 U/L (12-64); Protein, Total 6.7 g/dL (6.0-8.3)
[2018-09-06] MEDS ORDERED: Sodium Chloride 0.9% 1,000 ML IV SCH (08:00)
--- NOTE | 2018-09-06 13:46 | PDOC.HOSPP ---
- Subjective Subjective: Mr. Barrera was seen today in follow-up at approximately 10:30Am for Acute kidney injury and Lung mass. He does not have any new complaints. - Objective Vital Signs & Weight: Vital Signs (12 hours) Temp Pulse Resp BP Pulse Ox 09/06/18 12:03 97.1 F L 68 18 125/79 97 09/06/18 08:34 98.1 F 67 18 123/71 94 L 09/06/18 04:00 97.5 F L 66 15 116/77 95 Weight Weight 213 lb Result Diagrams: 09/06/18 05:29 09/06/18 05:29 Additional Labs: Accuchecks 09/05/18 16:48 POC Glucose 149 H ROS - Review of Systems All systems: All other ROS were reviewed and found negative. - Medication Medications: Active Medications Generic Name Dose Route Start Last Admin Trade Name Freq PRN Reason Stop Dose Admin Heparin Sodium (Porcine) 5,000 units 09/05/18 21:00 09/06/18 08:25 Heparin SC 5,000 units TID LYNN Administration Sodium Chloride 1,000 mls @ 75 mls/hr 09/06/18 08:00 09/06/18 08:27 Normal Saline 0.9% IV Not Given .[id number] LYNN - Exam Eye: PERRL, anicteric sclera Heart: RRR, no murmur, no gallops, no rubs, normal peripheral pulses Respiratory: CTAB, no wheezes, no rales, no ronchi, normal chest expansion Gastrointestinal: soft, non-tender, normal bowel sounds Extremities: no cyanosis, no clubbing, no edema Hosp A/P (1) Acute kidney injury Code(s): N17.9 - ACUTE KIDNEY FAILURE, UNSPECIFIED Status: Acute (2) Polysubstance abuse Code(s): F19.10 - OTHER PSYCHOACTIVE SUBSTANCE ABUSE, UNCOMPLICATED Status: Chronic (3) Chronic lower back pain Code(s): M54.5 - LOW BACK PAIN; G89.29 - OTHER CHRONIC PAIN Status: Chronic (4) Lung mass Code(s): R91.8 - OTHER NONSPECIFIC ABNORMAL FINDING OF LUNG FIELD Status: Chronic - Plan * Acute kidney injury from dehydration- improved * Mild Rhabdomyolysis - expected to improve with hydration * Lung Mass- He was given a referral to see the Pol[facility] Tech on his last hospital stay back in February, he admits he did not follow-up. He says he could afford the test they recommended.- Pulmonary Medicine has been consulted again- disposition pending this evaluation
--- NOTE | 2018-09-06 15:03 | CON ---
DATE OF CONSULTATION: 09/06/2018 REASON FOR CONSULTATION: Acute kidney injury. REQUESTING PROVIDER: Sundeep Castano MD CHIEF COMPLAINT: Dizziness and fall. HISTORY OF PRESENT ILLNESS: A 58-year-old male with known history of COPD, obstructive sleep apnea, hypertension, gout, and lung mass, who was brought in with complaint of dizziness and a fall. The patient also was found to have acute renal failure necessitating Nephrology consult. The patient reportedly has been working outside in the sun in the last 3 days and reported gait instability, intermittent dizziness as well as falls. reported that he had a fall and also had some slurred speech, hence emergency services were called and patient was subsequently brought to the emergency room where he was found to have hypotension with systolic blood pressures in 60s. The patient is on hydrochlorothiazide and benazepril for hypertension. He was started on IV fluid therapy and creatinine already is improving from above 3 to 1.68. The patient denied nausea, vomiting, change in bowel habits, chest pain, palpitations, or focal weakness. reported that the patient tends to have slurred speech when he gets sleepy. There is also no history of fever, dysuria, hematuria or leg swelling. The patient has chronic back pain for which he takes Lyrica and tramadol. PAST MEDICAL HISTORY: 1. Anxiety and depression. 2. COPD. 3. Obstructive sleep apnea. 4. Hypertension. 5. Narcolepsy. 6. Gout. 7. Lung mass. PAST SURGICAL HISTORY: 1. Incision and drainage of abscess over the right hand. 2. Gastric sleeve surgery. FAMILY HISTORY: Significant for premature coronary artery disease. SOCIAL HISTORY: The patient lives with spouse. He denied recreational drug use. He admitted to occasional alcohol use. He is a former smoker. ALLERGIES: NO KNOWN DRUG ALLERGIES REPORTED. HOME MEDICATIONS: 1. Tramadol 50 mg t.i.d. p.r.n. 2. Lyrica 150 mg p.o. b.i.d. 3. Benazepril/hydrochlorothiazide 1 tablet 20/25 daily. REVIEW OF SYSTEMS: 12-point review of system performed was negative other than pertinent positives and negatives included in the history of present illness. PHYSICAL EXAMINATION: VITAL SIGNS: Current vitals at 12:03 p.m. on September 06, 2018 show temperature 97.1, pulse 68, respiratory rate 18, SpO2 97 on room air, and blood pressure is 125/79. GENERAL: Middle-age male, in no distress. Afebrile. Anicteric. Acyanotic. HEENT: Normocephalic, atraumatic. Pupils are reacting to light. Oral mucosa is moist. NECK: Supple, nontender with full range of motion. No lymphadenopathy or masses were appreciated. CARDIOVASCULAR: Regular rhythm and rate with normal heart sounds 1 and 2. No obvious murmur was appreciated. RESPIRATORY: Fair air entry bilaterally with no obvious crackle or rhonchi or use of accessory muscles. GI: Full, soft, nontender, nondistended with normal bowel sounds. EXTREMITIES: Grossly normal looking atraumatic with no obvious edema, erythema, or cyanosis. Distal pulses are palpable. NEUROLOGIC: Conscious and alert and oriented x3 with appropriate mental status. Cranial nerves 2 through 12 are grossly intact. The patient moves all extremities with equal and symmetric power. The patient is ambulant. PSYCHIATRIC: Normal affect. DIAGNOSTIC DATA: CBC today showed WBC count of 9.9, hemoglobin of 11.1, MCV of 74.1, and platelet count of 264. Of note, on presentation on August 06, WBC count was 15.9 and hemoglobin was 12.1. BMP today showed sodium 138, potassium 3.8, chloride 109, CO2 22, BUN 36, creatinine 1.63, glucose 97, calcium 9.0, total bilirubin 0.4, AST 17, ALT 11, alkaline phosphatase 139, total protein 6.7, albumin 3.4. Of note, on presentation on September 05, sodium was 137, potassium was 4.2, chloride was 102, CO2 was 23, BUN was 38 and creatinine was 3.23, glucose was 151, calcium was 9.8, and alkaline phosphatase was 167. CPK on presentation was 356, has trended downwards to 273. Urinalysis on presentation showed yellow clear urine with pH of 6.0, specific gravity of 1.016, positive urine protein, but negative ketones, blood, nitrite, bilirubin, and leukocyte esterase and urobilinogen. Urine drug screen, however, was positive for opiates, amphetamine and methamphetamine. Salicylates on presentation were less than 8.0, and acetaminophen was less than 6.0, and alcohol was less than 10. ASSESSMENT: 1. Hypotension: Due to hypovolemia in a patient taking antihypertensives, benazepril and hydrochlorothiazide. Improved with IV fluid therapy. 2. Acute renal failure: Due to hemodynamic factors related to volume depletion and treatment with RAAS tamar. Improved with IV fluids. 3. Heat associated injury with dehydration and exertion. 4. Mild rhabdomyolysis. 5. Polysubstance abuse. Urine drug screen was positive for opiates and amphetamine/methamphetamine. 6. Lung mass. 7. Chronic microcytic anemia: Etiology is unclear. Iron deficiency anemia is a concern given history of gastric sleeve surgery. PLAN: 1. We will increase IV fluid therapy to 125 mL/h of normal saline. 2. We will get CPK in the morning. 3. We will also get iron chemistry to rule out iron deficiency anemia. 4. Further recommendation to follow depending on hospital course and other blood labs. Many thanks for involving us in the care of this patient. We will follow along with you. Job ID: [id number]
[2018-09-06] MEDS: Sodium Chloride 0.9% 1,000 ML IV SCH (16:02)
--- NOTE | 2018-09-07 01:13 | CON ---
DATE OF CONSULTATION: 09/06/2018 HISTORY OF PRESENT ILLNESS: Mr. Barrera is a gentleman seen in the past. It was explained to him when I saw him at the beginning of the year that he had a large lung mass and it would need to be followed. He has never made an appointment to see me in my office. His significant other is sitting in the room with him, informed me that it was Mr. Barrera' fault that he never followed up with me. I have not consulted for this same mass. He apparently presented with intravascular volume depletion and weakness. He has been hydrated. We were consulted because of an abnormal chest x-ray. PAST MEDICAL HISTORY: Remarkable for, 1. COPD. 2. History of sleep apnea, not wearing CPAP. 3. History of lung mass, which measured 7 cm at the beginning of the year. 4. History of hypertension. 5. History of right hand cellulitis requiring incision and drainage. 6. History of gastric sleeve. 7. History of anxiety and depression. SOCIAL HISTORY: He currently says he is not smoking, not drinking. He denies drug use. FAMILY HISTORY: Negative for lung disease in early age. ALLERGIES: HE HAS NO REPORTED DRUG ALLERGIES. REVIEW OF SYSTEMS: A 10-point review of systems, otherwise, negative, although he is not very talkative. PHYSICAL EXAMINATION: GENERAL: We were consulted because of an abnormal chest x-ray. VITAL SIGNS: He is afebrile, heart rate 68, respiratory rate 18, oximetry is 97 % on room air, blood pressure 125/79. HEENT: Pupils are equal. Sclerae anicteric. Extraocular movements are full. NECK: Supple. LUNGS: Clear. HEART: Regular rhythm. S1 and S2 are normal. ABDOMEN: Soft and nontender. EXTREMITIES: Without clubbing, cyanosis, or edema. LABORATORY DATA: White count 9.9, hemoglobin 11.1, MCV 74, platelets 264. Sodium 138, potassium 3.8, chloride 109, bicarb 22, BUN 36, creatinine 1.63, creatinine was 3.23 on presentation. Chest x-ray shows a [address] without contrast showed no abnormalities. IMPRESSION AND PLAN: Large lung mass. I would suggest that we work this up while he is in the hospital as I think it is highly likely that he will not keep any followup. His significant other is supportive of this recommendation. I will order for now a noncontrast chest CT to get better definition of the margins of this mass. At a later date, he can have PET imaging if a biopsy is performed and we determined this is malignant. His renal insufficiency appears to be predominantly secondary to intravascular volume depletion. His untreated sleep apnea is an issue, but we can't really address that while he is in the hospital. We will continue with IV hydration. This is a 50 minute consult, with greater than 50% of time spent on unit coordinating care. Job ID: [id number] [facility] MED[facility] CENTERAlicia
[2018-09-07] MEDS: Sodium Chloride 0.9% 1,000 ML IV SCH ×2 (05:23→09:07)
[2018-09-07 05:32] LABS: #Eosinphils 0.2 thou/uL (0.0-0.7); #Lymphocytes 1.9 thou/uL (1.20-3.40); #Monocytes 0.7 thou/uL (0.11-0.59); #Neutrophils 6.4 thou/uL (1.40-6.50); %Basophils 0.1 % (0.0-1.0); %Eosinophils 2.5 % (0.0-10.0); %Lymphocytes 20.9 % (21.0-51.0); %Neutrophils 68.4 % (42.0-75.0); Hemoglobin 10.8 g/dL (14.0-18.0); Mean Corpuscular HGB CONC 31.5 g/dL (32.0-36.0); Mean Corpuscular Hemoglobin 23.2 pg (27.0-31.0); Mean Corpuscular Volume 73.5 fL (78.0-98.0); Platelet Count 235 thou/uL (130-400); RBC Distribution Width 14.8 % (11.5-14.5); Red Blood Cell (RBC) Count 4.67 mill/uL (4.70-6.10); White Blood Cell (WBC) Count 9.3 thou/uL (4.8-10.8)
[2018-09-07 06:09] LABS: Iron 19 ug/dL (65-175); Iron Binding Capacity, Total 238 mcg/dL (261-462)
[2018-09-07 06:10] LABS: Anion Gap 12 mmol/L (10-20); BUN (Urea Nitrogen) 23 mg/dL (8.4-25.7); Calc. Creatinine Clearance 129 mL/min (70-130); Calcium 9.5 mg/dL (7.8-10.44); Carbon Dioxide 24 mmol/L (22-29); Chloride 105 mmol/L (98-107); Estimated GFR-MDRD Greater than 90; Glucose 73 mg/dL (70-105); Iron Binding Capacity, Total 239 mcg/dL (261-462); Potassium 3.6 mmol/L (3.5-5.1); Sodium 137 mmol/L (136-145)
[2018-09-07 06:46] LABS: CK (CPK) 113 U/L (30-200)
[2018-09-07] MEDS ORDERED: Iron, Sodium Ferric Gluconate 250 MG in Sodium Chloride 0.9% 100 ML IVPB SCH (07:30)
--- NOTE | 2018-09-07 08:55 | CT ---
CT Chest WO Con History: Mass Comparison: CT chest March 04, 2018 Findings: The left upper lobe mass adequate previous maximum dimension of 8.6 cm, previously 7 cm. Th ere is diffuse internal hemorrhage within the mass, slightly increased from the comparison examination. There is intrabronchial extension into the lingular bronchi. Mild postobstructive pneumo nitis. Within the posterior segment right lower lobe appears be a new ovoid mass measuring up to 2.5 cm in g reatest dimension. There is also a new mass spiculated margins left lung base abutting the diaphragm measuring 1.7 cm. This is along the inferior pulmonary ligament. Small right pleural effusion. Mild centrilobular emphysema. Mild scarring right lung apex. No pneumothorax. No definite right hilar nor supraclavicular adenopathy. Mildly enlarged and inflamed left axillary Impression: 1. Enlarging lingular mass. 2. Mildly inflamed and enlarged left axillary lymph nodes. This may be metastatic in nature. 3. New satellite masses along the left inferior pulmonary ligament and posterior basal right lower lo be. 4. Cholelithiasis.
[2018-09-07] MEDS: Heparin 5,000 UNITS/ML VIAL SC SCH ×2 (09:06→09:14)
--- NOTE | 2018-09-07 10:24 | PRG ---
DATE OF SERVICE: 09/07/2018 SUBJECTIVE: Mr. Barrera' CT was reviewed. He has lung mass on the left, almost about to pleura and extends almost to the hilum. It does not appear to have endobronchial extension at least radiographically. He has no new complaints today. OBJECTIVE: GENERAL: He is receiving IV iron. VITAL SIGNS: He is afebrile. Heart rate is 84, respiratory rate is 18, oximetry is 97% on room air, blood pressure 136/76. LUNGS: Clear. HEART: Regular rhythm. ABDOMEN: Soft. IMPRESSION: 1. Lung mass, likely malignant, now perhaps with contralateral lung involvement. I have ordered a CT-guided biopsy of the large lung mass, so I think this will be the highest yield. 2. Anemia with a decreased mean corpuscular volume. His total iron level was low, but his TIBC was not greater than 250, arguing that some of this may be related to chronic disease. 3. I do not believe he has ever had a screening colonoscopy and this should be part of the workup. 4. Intravascular volume depletion with return of his renal function to normal. He is on DVT prophylaxis of heparin. This will be held for the biopsy. 5. Chronic obstructive pulmonary disease. 6. Noncompliance with followup. 7. History of sleep apnea, not wearing CPAP. 8. History of hypertension. 9. History of cellulitis, requiring incision and drainage. He has an area on his left forearm that is about the size of a golf ball that looks like a focal area of cellulitis. He probably should be started on antimicrobial therapy for this. We will continue to follow him. Job ID: [id number]
[2018-09-07] MEDS ORDERED: Sodium Bicarbonate 2.5 MEQ/5 ML VIAL ONE (11:29)
[2018-09-07] MEDS ORDERED: Fentanyl 100 MCG/2 ML VIAL ONE (11:48)
[2018-09-07] MEDS ORDERED: Midazolam HCl 2 mg/2 ml Vial ONE (11:48)
--- NOTE | 2018-09-07 12:18 | PRG ---
DATE OF SERVICE: SUBJECTIVE: A 58-year-old male admitted due to hypotension and acute kidney injury, being followed up by Nephrology. The patient was found to have volume depletion with hypotension due to excessive perspiration from heat injury. He was treated with IV fluid with improvement. Reports feeling better and generalized body ache has subsided. Denied chest pain, fever, shortness of breath, or palpitation. OBJECTIVE: VITAL SIGNS: Temperature 98.7, pulse 84, respiratory rate 18, SpO2 of 97 on room air, blood pressure 136/76. GENERAL: Middle-aged male, in no distress. Afebrile. Anicteric. Acyanotic. HEENT: Normocephalic and atraumatic. Pupils are reacting to light. Oral mucosa is moist. CARDIOVASCULAR: Regular rhythm and rate with normal heart sounds one and two. RESPIRATORY: Fair air entry bilaterally with no obvious crackle or rhonchi or use of accessory muscles. GI: Full, soft, nontender, nondistended with normal bowel sounds. EXTREMITIES: Grossly normal looking, atraumatic with no edema, erythema, or cyanosis. Distal pulses are palpable. NEUROLOGIC: Conscious, alert, oriented x3 with appropriate mental status. Cranial nerves 2 through 12 are grossly intact. DIAGNOSTIC DATA: CBC showed WBC count of 9.3, hemoglobin of 10.8, MCV of 73.5, and platelet of 235. BMP showed sodium 137, potassium 3.6, chloride 105, CO2 of 24, BUN 23, creatinine 0.84, glucose 73, calcium 9.5. Iron chemistry showed serum iron of 19, TIBC of 238 with iron saturation of 8 and ferritin of 117.47. CK is 113. ASSESSMENT: 1. Acute kidney injury: This is due to hemodynamic factors related to volume depletion and use of RAAS tamar. Creatinine has gone back to baseline of 0.84 with IV fluids. We will discontinue IV fluid and monitor renal function. 2. Mild rhabdomyolysis: Due to acute injury and volume depletion. Resolved. CK is down to 113. 3. Microcytic anemia: Due to iron deficiency anemia. The patient has history of gastric sleeve surgery. Occult GI losses cannot be ruled out given iron chemistry. We will go ahead and give a dose of Ferrlecit 250 mg. The patient need to follow up with GI for further evaluation to rule out GI bleed. We deferred this to the primary attending. 4. Lung mass. Pulmonology is following. Biopsy is planned. 5. HTN: BP is well controlled at this time. Continue to hold antihypertensives and monitor. Job ID: [id number] MTDD
[2018-09-07] MEDS ORDERED: Midazolam HCl 2 mg/2 ml Vial SLOW IVP PRN (13:22)
[2018-09-07] MEDS ORDERED: Fentanyl 100 MCG/2 ML VIAL SLOW IVP PRN (13:23)
--- NOTE | 2018-09-07 14:36 | RAD ---
XR Chest Insp/Exp History: Lung biopsy Comparison: Radiograph same day Findings: Large left lung mass. No significant pneumothorax. Impression: No significant pneumothorax.
--- NOTE | 2018-09-07 14:37 | RAD ---
XR Chest Insp/Exp History: Lung mass. Post biopsy. Comparison: CT same day Findings: Large left lung mass. No significant pneumothorax. Impression: No significant postprocedural pneumothorax.
--- NOTE | 2018-09-07 15:23 | PDOC.HOSPP ---
- Subjective Subjective: Mr. Barrera was seen today in follow-up of acute kidney injury and lung mass. He does not have any complaints today. He has returned from lung biopsy. - Objective Vital Signs & Weight: Vital Signs (12 hours) Temp Pulse Resp BP BP Pulse Ox 09/07/18 11:54 98.2 F 75 15 145/85 H 98 09/07/18 07:45 98.7 F 84 18 136/76 97 Weight Weight 213 lb 2 oz I&O: 09/06/18 09/07/18 09/08/18 06:59 06:59 06:59 Intake Total 1400 Output Total 1000 Balance 400 Result Diagrams: 09/07/18 04:26 09/07/18 04:26 ROS - Review of Systems All systems: All other ROS were reviewed and found negative. - Exam Eye: PERRL, anicteric sclera Heart: RRR, no murmur, no gallops, no rubs Respiratory: CTAB, no wheezes, no rales, no ronchi, normal chest expansion Gastrointestinal: soft, non-tender, non-distended, normal bowel sounds, no palpable masses, no hepatomegaly Extremities: no cyanosis, no clubbing, no edema Hosp A/P (1) Acute kidney injury Code(s): N17.9 - ACUTE KIDNEY FAILURE, UNSPECIFIED Status: Acute (2) Polysubstance abuse Code(s): F19.10 - OTHER PSYCHOACTIVE SUBSTANCE ABUSE, UNCOMPLICATED Status: Chronic (3) Chronic lower back pain Code(s): M54.5 - LOW BACK PAIN; G89.29 - OTHER CHRONIC PAIN Status: Chronic (4) Lung mass Code(s): R91.8 - OTHER NONSPECIFIC ABNORMAL FINDING OF LUNG FIELD Status: Chronic - Plan * Acute kidney injury- resolved * Lung Mass- the patient has gone for biopsy, and now awaiting the results * Chronic low back pain- stable
--- NOTE | 2018-09-07 17:05 | CT ---
CT Lung Perc Biopsy CT GUIDED LEFT LUNG BIOPSY: CLINICAL HISTORY: Left pulmonary mass. PROCEDURE: Informed consent was obtained and the patient was escorted to the procedural suite, placed in supine position. Conscious sedation for a total of 45 minutes was performed, administered by the radiology nurse, with the patient consistently monitored throughout the duration of the exam in stable conditio n. The patient's skin was prepped and draped in a standard sterile fashion and topical anesthesia with buffered 1% lidocaine was performed. After a small skin incision was made, an 20-gauge needle we re advanced to the leading edge of the left pulmonary mass. After adequate placement was confirmed with CT fluoroscopic imaging, 3 subsequent core specimens were obtained via percutaneous biopsy. The se were confirmed with CT fluoroscopic imaging and the specimens were submitted to the pathologist for adequacy. Specimens were deemed adequate for interpretation. Therefore, all devices were then rem miki from the patient. No unexpected procedural complications were present. The patient was monitored in radiology holding i n stable condition prior to discharge with family member. IMPRESSION: Technically successful percutaneous left lung biopsy. Pathology results are pending.
[2018-09-07] MEDS ORDERED: Acetaminophen 500 MG TAB PO PRN (19:09)
[2018-09-08 05:31] LABS: #Eosinphils 0.2 thou/uL (0.0-0.7); #Lymphocytes 2.2 thou/uL (1.20-3.40); #Monocytes 1.1 thou/uL (0.11-0.59); #Neutrophils 7.5 thou/uL (1.40-6.50); %Basophils 0.3 % (0.0-1.0); %Eosinophils 2.2 % (0.0-10.0); %Lymphocytes 20.2 % (21.0-51.0); %Monocytes 9.6 % (0.0-10.0); %Neutrophils 67.8 % (42.0-75.0); Hemoglobin 10.9 g/dL (14.0-18.0); Mean Corpuscular HGB CONC 30.6 g/dL (32.0-36.0); Mean Corpuscular Hemoglobin 22.3 pg (27.0-31.0); Mean Corpuscular Volume 72.8 fL (78.0-98.0); Mean Platelet Volume 9.1 fL (7.4-10.4); Platelet Count 276 thou/uL (130-400); RBC Distribution Width 14.9 % (11.5-14.5); Red Blood Cell (RBC) Count 4.89 mill/uL (4.70-6.10)
[2018-09-08 05:51] LABS: Anion Gap 10 mmol/L (10-20); BUN (Urea Nitrogen) 19 mg/dL (8.4-25.7); Calc. Creatinine Clearance 120 mL/min (70-130); Calcium 9.6 mg/dL (7.8-10.44); Carbon Dioxide 29 mmol/L (22-29); Chloride 103 mmol/L (98-107); Estimated GFR-MDRD 85; Glucose 125 mg/dL (70-105); Potassium 3.3 mmol/L (3.5-5.1); Sodium 139 mmol/L (136-145)
--- NOTE | 2018-09-08 08:37 | PDOC.HOSPP ---
- Subjective Subjective: Mr. Barrera was seen today in follow-up of Lung mass, and acute renal failure. He does not have any new complaints. - Objective Vital Signs & Weight: Vital Signs (12 hours) Temp Pulse Resp BP Pulse Ox 09/08/18 08:00 98.0 F 82 18 124/70 98 09/08/18 04:00 98.3 F 76 18 105/65 99 09/08/18 00:00 98.2 F 77 18 110/65 95 Weight Weight 213 lb 2 oz I&O: 09/07/18 09/08/18 09/09/18 06:59 06:59 06:59 Intake Total 1400 240 Output Total 1000 Balance 400 240 Result Diagrams: 09/08/18 05:02 09/08/18 05:02 ROS - Review of Systems All systems: All other ROS were reviewed and found negative. - Exam NAD Eye: PERRL, anicteric sclera Heart: RRR, no murmur, no gallops, no rubs, normal peripheral pulses Respiratory: CTAB, no wheezes, no rales, no ronchi, normal chest expansion Gastrointestinal: soft, non-tender, non-distended, normal bowel sounds Extremities: no cyanosis, no clubbing, no edema Hosp A/P (1) Acute kidney injury Code(s): N17.9 - ACUTE KIDNEY FAILURE, UNSPECIFIED Status: Acute (2) Polysubstance abuse Code(s): F19.10 - OTHER PSYCHOACTIVE SUBSTANCE ABUSE, UNCOMPLICATED Status: Chronic (3) Chronic lower back pain Code(s): M54.5 - LOW BACK PAIN; G89.29 - OTHER CHRONIC PAIN Status: Chronic (4) Lung mass Code(s): R91.8 - OTHER NONSPECIFIC ABNORMAL FINDING OF LUNG FIELD Status: Chronic (5) Microcytic anemia Code(s): D50.9 - IRON DEFICIENCY ANEMIA, UNSPECIFIED Status: Acute - Plan * Acute kidney Injury- resolved- IV fluids have been stopped * Lung Mass- he is s/p CT-guided lung biopsy- awaiting results * Microcytic anemia- agree he has some features of both iron deficiency as well as anemia of chronic disease- will check his stool for occult blood, and since he has never had a colonoscopy- will Consult GI
[2018-09-08] MEDS ORDERED: Iron, Sodium Ferric Gluconate 250 MG in Sodium Chloride 0.9% 100 ML IVPB SCH (10:45)
[2018-09-08] MEDS ORDERED: Potassium Chloride 20 MEQ TAB PO SCH (10:45)
--- NOTE | 2018-09-08 11:14 | PRG ---
DATE OF SERVICE: 09/08/2018 SUBJECTIVE: A 58-year-old male with hypertension, admitted with acute renal failure and hypotension. The patient was treated with IV fluid with resolution of hypotension and acute renal failure while antihypertensives were held. No new problem. The patient has had lung biopsy yesterday. OBJECTIVE: VITAL SIGNS: Temperature 98, pulse 82, respiratory rate 18, SpO2 of 98 on room air, blood pressure 124/70. GENERAL: Middle-aged male, in no distress. Afebrile. Anicteric. Acyanotic. HEENT: Normocephalic, atraumatic. CARDIOVASCULAR: Regular rhythm and rate with normal heart sounds, one and two. RESPIRATORY: Fair air entry bilaterally with no crackle or rhonchi or use of accessory muscles. GI: Full, soft, nontender, nondistended with normal bowel sounds. EXTREMITIES: Grossly normal looking atraumatic with no edema or erythema. NEUROLOGIC: Conscious, alert, oriented x3 with appropriate mental status. DIAGNOSTIC DATA: CBC showed WBC count of 11, hemoglobin of 10.9, platelet of 276, and MCV of 72.8. BMP showed sodium 139, potassium 3.3, chloride 103, CO2 of 29, BUN 19, creatinine 0.91, glucose 125, calcium 9.6. ASSESSMENT: 1. Hypokalemia: Related to poor oral intake and urinary losses from saline diuresis. We will replete with oral potassium chloride 40 mEq. We will also get serum magnesium to rule out hypomagnesemia. We will also recheck BMP in the morning. 2. History of hypertension. Antihypertensives were held due to hypotension and acute renal failure. Blood pressure is controlled at this time. We will continue to hold antihypertensives. 3. Acute renal failure: Due to hemodynamic factors related to hypovolemia and RAAS tamar. Resolved. Avoid nephrotoxic agent. 4. Orthostatic hypotension and syncope: Due to volume depletion. Resolved. 5. Iron-deficiency anemia/microcytic anemia: We will give additional Ferrlecit 250 mg today. 6. Lung mass: Evaluation as per desktop support associate. 7. Repeat BMP in the morning. We will re-evaluate blood pressure with a view to start an antihypertensives if needed. However, the patient does not need to be on diuretics going forward. Job ID: [id number]
--- NOTE | 2018-09-08 23:53 | CON ---
DATE OF CONSULTATION: 09/08/2018 REASON FOR CONSULTATION: Iron-deficiency anemia for possible colonoscopy. HISTORY OF PRESENT ILLNESS: Mr. Andrew Barrera is a 58-year-old male, who had colonoscopy several times over the last few years. The patient is known to have a lung mass by CAT scan recently. He underwent a biopsy of the lung mass and the biopsy is pending. The patient also has had mild rhabdomyolysis and mild dehydration. Going on Numerous, he has been hospitalized several times with various problems. In fact, in 2014, he had similar problems of heat exposure, presented with dehydration and dizziness. The patient at the present time is actually doing better. He has no abdominal pain. No nausea or vomiting. Denies dysphagia, dyspepsia, or abdominal pain. No history of hematochezia or any melena. He has had microcytic anemia, this is not nothing new. Going on Numerous, he has had always mild anemia with low MCV. The patient denies history of any black tarry stool. There is no history of hematochezia. His bowel movements are fairly regular. He does have a family history of colon cancer. Apparently, his father had colon cancer. Although, he has family history of colon cancer, he never had a colonoscopy. He has no specific GI symptoms at this time. ALLERGIES: NO DRUG ALLERGIES. SOCIAL HISTORY: He is an ex-smoker. He was smoking approximately 6 years ago, that is what he says. Before that he was smoking as much as 3-pack of cigarettes per day. No history of drug use. No history of alcohol abuse. PAST MEDICAL HISTORY: 1. COPD. 2. Sleep apnea, not using CPAP. 3. Hypertension. 4. Narcolepsy. 5. Gout. 6. Lung mass, recent biopsy masses are pending. PAST SURGICAL HISTORY: 1. Cellulitis of right hand, surgery by Dr. Bernstein. 2. Gastric surgery 3-1/2 year ago in [place]. PSYCHIATRIC HISTORY: Depression and anxiety. FAMILY HISTORY: Father had a colon cancer. No family history of CVA, heart disease, or lung disease. MEDICATIONS: List reviewed, which include; 1. Tramadol. 2. Lyrica. 3. Benicar. REVIEW OF SYSTEMS: At the present time; CONSTITUTIONAL: No history of weight loss. No fever. He has good energy level. HEENT: No diplopia. No chronic headache. No dizziness. No syncope. No hearing loss. No sore throat. No epistaxis. NECK: No stiffness, pain. LUNGS: History of COPD. History of dyspnea off and on. No history of any hemoptysis. CARDIOVASCULAR SYSTEM: No chest pain. No palpitation. No dyspnea, orthopnea, or PND. GI: Nonrelevant. : No dysuria or hematuria. MUSCULOSKELETAL: Nonrelevant. NEUROENDOCRINE: Nonrelevant. PHYSICAL EXAMINATION: GENERAL: The patient appears very comfortable. He is well built, appears in no distress. He is awake, alert, oriented to time, place, and person. VITAL SIGNS: Afebrile. Pulse is 74, blood pressure is 138/66. HEENT: Conjunctivae clear. NECK: Supple. No adenitis or thyromegaly noted. CARDIOVASCULAR: First and second heart sounds are normal. LUNGS: Clear to auscultation. ABDOMEN: Soft. No organomegaly. No tenderness. No masses. Bowel sounds normal. EXTREMITIES: Reveal no edema. LABORATORY DATA: For today, WBC 11,000, which was 15,900, on admission; hemoglobin 10.9; hematocrit 35.6; MCV 72.8, platelet count 236,000, volume loss 7, lymphocytes 20; monocytes 9; platelet count is 276,000. Chemistry panel is back to normal. BUN was 36 on admission, back to 19 today; creatinine was 1.63, coming back to 0.91. Lytes are normal except for potassium of 3.3, chloride 103, glucose 125, calcium 9.6. Liver function tests are normal. IMPRESSION AND PLAN: 1. This is a 58-year-old male, who has lung mass, underwent biopsy a couple of days ago. The results are pending. He has microcytic anemia. He has had anemia for a while. He also has family history of colon cancer. He has no specific GI symptoms. 2. Chronic obstructive pulmonary disease. 3. Sleep apnea. 4. Hypertension. 5. Gout. 6. Status post gastric surgery. I did talk to Mr. Barrera about having a colonoscopy and possibly EGD. He is agreeable. He was explained of bowel prep and he will drink a gallon of GoLYTELY and stay on clear liquid diet. This was explained to the patient and he is willing to undergo the procedure. I will plan for the procedure tomorrow after bowel prep. Job ID: [id number]
[2018-09-09] MEDS ORDERED: GoLYTELY 4,000 ml Bottle PO SCH (06:00)
[2018-09-09 06:40] LABS: Anion Gap 13 mmol/L (10-20); BUN (Urea Nitrogen) 14 mg/dL (8.4-25.7); Calc. Creatinine Clearance 133 mL/min (70-130); Calcium 9.7 mg/dL (7.8-10.44); Carbon Dioxide 27 mmol/L (22-29); Chloride 103 mmol/L (98-107); Estimated GFR-MDRD Greater than 90; Glucose 82 mg/dL (70-105); Magnesium 1.9 mg/dL (1.6-2.6); Potassium 4.2 mmol/L (3.5-5.1); Sodium 139 mmol/L (136-145)
--- NOTE | 2018-09-09 08:18 | PRG ---
DATE OF SERVICE: 09/09/2018 SUBJECTIVE: A 58-year-old male admitted due to hypotension and syncope, found to have acute renal failure. Renal failure has resolved. The patient is being evaluated for lung cancer as well as microcytic anemia. No new problem. Denied fever, abdominal pain, headache, nausea, or vomiting. OBJECTIVE: VITAL SIGNS: Temperature 97.7, pulse 62, respiratory rate 16, SpO2 of 100% on room air, and blood pressure is 152/83. GENERAL: Healthy-looking, middle-aged male, in no distress. Afebrile. Anicteric. Acyanotic. HEENT: Normocephalic, atraumatic. Oral mucosa is moist. CARDIOVASCULAR: Regular rhythm and rate with normal heart sounds 1 and 2. RESPIRATORY: Good air entry bilateral with few transmitted sounds. No rhonchi or crackle appreciated. GI: Abdomen is full, soft, nontender, and nondistended with normal bowel sounds. EXTREMITIES: Left forearm fluctuant mass with noted. Otherwise, extremities are grossly normal looking with no erythema or edema. NEUROLOGIC: Conscious and alert and oriented x3 with appropriate mental status. Cranial nerves 2 through 12 are grossly intact. The patient is ambulant. DIAGNOSTIC DATA: BMP showed sodium 139, potassium 4.2, chloride 103, CO2 27, BUN 14, creatinine 0.82, glucose 82, calcium 9.7, and magnesium 1.9. ASSESSMENT AND PLAN: 1. Hypertension: Antihypertensives were held on presentation due to hypotension and volume depletion. Blood pressure has appreciated and it is consistently elevated above 150 in the last 12-18 hours. We will restart antihypertensive at a lower dose. However, we will continue to hold diuretics. Benicar 20 mg was started. 2. Acute renal failure: Resolved. 3. Orthostatic syncope: Due to volume depletion and hypotension, resolved. 4. Lung cancer: Evaluation as per [facility]. 5. Microcytic/iron deficiency anemia: Concerning for GI blood losses. The patient is status post IV iron therapy. Endoscopic evaluation is planned. 6. Disposition. Anticipate that the patient can be discharged after endoscopic evaluation to follow up with the PCP. The patient can go home on current antihypertensives and follow up with PCP for further dose adjustment. Job ID: [id number]
[2018-09-09] MEDS ORDERED: HYDROmorphone 2 MG/ML VIAL SLOW IVP PRN (16:18)
[2018-09-09] MEDS ORDERED: PACU-Morphine 4MG/ML VIAL SLOW IVP PRN (16:18)
[2018-09-09] MEDS ORDERED: Promethazine HCl 25 MG/ML VIAL IM PRN (16:18)
[2018-09-09] MEDS ORDERED: Promethazine HCl 25 MG/ML VIAL SLOW IVP PRN (16:18)
[2018-09-09] MEDS ORDERED: Ondansetron HCl/PF 4 MG/2 ML Vial IVP PRN (16:18)
--- NOTE | 2018-09-09 18:45 | OP ---
DATE OF PROCEDURE: 09/09/2018 PROCEDURES PERFORMED: Esophagogastroduodenoscopy with biopsy, colonoscopy with polypectomy. INDICATION FOR PROCEDURE: Anemia of unknown origin. DESCRIPTION OF PROCEDURE: After the risks and benefits of the procedures were explained to the patient including risks of bleeding, infection, perforation, reactions to anesthesia, aspiration and/or pain, informed consent was obtained. The patient was then taken to the endoscopy suite, where deep sedation was administered via propofol and anesthesia support. Once adequate sedation was achieved, the standard gastroscope was introduced into the mouth with intubation of the esophagus, stomach, and the proximal small intestine with the findings listed below. The patient tolerated the procedure well with no immediate perioperative complications. Upon completion of this portion of the procedures, all equipment was removed from the patient and the bed was rotated 180 degrees in anticipation of the colonoscopy. After a digital rectal examination was performed, the standard colonoscope was introduced into the rectum and advanced to the terminal ileum with some difficulty due to tortuosity of the colon, but ultimately traversed at any additional modalities. The quality of the prep was fair to good. The patient tolerated the procedure well with no immediate perioperative complications. Upon completion of the procedure, all equipment was removed from the patient and he was transferred to PACU in satisfactory condition. EGD FINDINGS: Esophagus: Normal-appearing mucosa was seen in the proximal and mid esophagus. A few linear erosions were seen in the distal esophagus at the GE junction and extending proximally approximately 5 to 10 mm in length, but not extending between folds. There was no overt ulceration associated with these erosions. Otherwise, there was no evidence of mass, lesions, or active/recent bleeding. The diaphragmatic pinch was well seen at 54 cm while the GE junction was seen at 44 cm denoting a 10 cm hiatal hernia. There was no evidence of Elton erosions/ulcerations with this hiatal hernia. Stomach: Normal-appearing mucosa was seen in the gastric cardia, fundus, and body. However, the large hiatal hernia did make visualization of the mid gastric body somewhat difficult. There was no evidence of Elton ulcerations seen on either forward view or retroflexion within the stomach. Normal-appearing mucosa was then seen in the gastric antrum and incisura. There was no evidence of erosions, ulcerations, mass, lesions, or active/recent bleeding. Duodenum: Normal-appearing mucosa was seen in both the duodenal bulb and second portion of the duodenum. There was no evidence of erosions, ulcerations, mass, lesions, or active/recent bleeding. Multiple random biopsies were taken for evaluation of possible celiac sprue. IMPRESSION: 1. LA grade B reflux mediated erosive esophagitis. 2. Large (10 cm) hiatal hernia without presence of Elton ulcerations or bleeding. COLONOSCOPY FINDINGS: Digital rectal exam: Normal findings were seen on external examination. Colon findings: Normal-appearing mucosa was seen within the terminal ileum as well as at the ileocecal valve and appendiceal orifice, and within the cecum itself. Five polyps measuring 3 to 5 mm in size were seen in ascending colon and completely removed with snare cautery polypectomy. They were retrieved and placed in a specimen jar for evaluation. Four polyps measuring 4 to 12 mm in size were seen within the transverse colon and completely removed with snare cautery polypectomy and the largest polyp (12 mm), created a larger mucosal defect that was subsequently closed with hemoclip placement x1 with successful closure of the defect. Two additional polyps measuring 3 to 6 mm in size were seen in the descending colon and completely removed with snare cautery polypectomy. They were retrieved and placed in a specimen jar for evaluation. Normal-appearing mucosa was seen within the sigmoid colon and an 8 mm polyp was seen within the rectum and completely removed with snare cautery polypectomy. It was retrieved and placed in a specimen jar for evaluation. Small internal hemorrhoids were seen on rectal retroflexion. IMPRESSION: 1. Five 3 to 5 mm ascending colon polyps, status post snare cautery. 2. Four 4 to 12 mm transverse colon polyps, status post snare cautery polypectomy with hemoclip placement x1 for the largest polyp. 3. Two 3 to 6 mm descending colon polyps, status post snare cautery polypectomy. 4. 8 mm rectal polyp, status post snare cautery polypectomy. 5. Internal hemorrhoids. 6. No evidence of active/recent bleeding or significant anemia was seen during this portion of the examination. RECOMMENDATIONS: 1. We will continue to trend H and H and transfuse as necessary to maintain an H and H of 7/21. 2. Continue to monitor clinically for signs of active GI bleeding. 3. Given the iron indices are more indicative of anemia of chronic disease, capsule endoscopy is not necessarily indicated at this time. 4. We will follow up on the polyp and biopsy results with further management indicated based on that and repeat colonoscopy interval based on the pathology as well. We will continue to follow. Please call with any questions. Job ID: [id number]
--- NOTE | 2018-09-09 21:07 | PDOC.HOSPP ---
- Subjective Subjective: f/u for L lung mass with bx showing SCC. s/p EGD/colonoscopy without active bleed but erosive esophagitis and colon polyps. Feels ok overall except for left forearm swelling and x 4 days. - Objective Vital Signs & Weight: Vital Signs (12 hours) Temp Pulse Resp BP Pulse Ox 09/09/18 19:55 98.0 F 80 16 128/64 100 09/09/18 14:46 98.2 F 50 L 16 133/85 09/09/18 09:13 97.6 F 60 16 105/52 L 100 Weight Weight 213 lb 2 oz I&O: 09/08/18 09/09/18 09/10/18 06:59 06:59 06:59 Intake Total 240 Balance 240 Result Diagrams: 09/08/18 05:02 09/09/18 05:44 Additional Labs: Microbiology 09/08/18 11:20 Stool Stool Occult Blood (JERAD) - Final 09/05/18 17:47 Venous blood - Right Arm Blood Culture - Preliminary NO GROWTH AT 48 HOURS 09/05/18 17:36 Venous blood - Right Arm Blood Culture - Preliminary NO GROWTH AT 48 HOURS Laboratory Tests 09/05/18 09/06/18 09/07/18 16:47 05:29 04:26 WBC 15.9 H 9.9 9.3 Hgb 12.1 L 11.1 L 10.8 L Potassium Iron TIBC % Saturation Ferritin 09/07/18 09/07/18 09/08/18 04:26 04:26 05:02 WBC Hgb Potassium 3.3 L Iron 19 L TIBC 238 L % Saturation 8 L Ferritin 117.47 Radiology Reviewed by me: Yes (EGD/colonoscopy - erosive esophagitis, colon polyps) ROS - Review of Systems All systems: All other ROS were reviewed and found negative. - Medication Medications: Active Medications Generic Name Dose Route Start Last Admin Trade Name Freq PRN Reason Stop Dose Admin Olmesartan 20 mg 09/09/18 09:00 09/09/18 09:18 Benicar PO 20 mg DAILY LYNN Administration Sodium Chloride 10 ml 09/09/18 09:00 09/09/18 09:19 Flush - Normal Saline IVF 10 ml Q12HR LYNN Administration - Exam NAD, awake alert Eye: PERRL, anicteric sclera ENT: normocephalic atraumatic, no oropharyngeal lesions Neck: supple, symmetric, no JVD, no Thyromegaly Heart: RRR, no murmur, no gallops, no rubs Respiratory: rhonchi, wheezes (diminished in left field) Gastrointestinal: soft, non-tender, non-distended, normal bowel sounds, no palpable masses Extremities: 1+ LE edema (L mid-forearm with 3cm abscess, erythema and expressible exudate, + edema peripherally) Neurological: CN's grossly intact, no focal deficits Musculoskeletal: normal tone, normal strength Psychiatric: normal behavior, A&O x 3 Hosp A/P (1) Squamous cell carcinoma lung Code(s): C34.90 - MALIGNANT NEOPLASM OF UNSP PART OF UNSP BRONCHUS OR LUNG Status: Acute Qualifiers: Laterality: left Qualified Code(s): C34.92 - Malignant neoplasm of unspecified part of left bronchus or lung Plan: Consult Med Oncology for coordination of treatment plan (2) Erosive esophagitis Code(s): K22.10 - ULCER OF ESOPHAGUS WITHOUT BLEEDING Status: Acute Plan: Start Protonix 40mg BID (3) Abscess of left upper extremity Code(s): L02.414 - CUTANEOUS ABSCESS OF LEFT UPPER LIMB Status: Acute Plan: Consult Gen Surgery for evaluation and I&D, start Vancomycin/Zosyn IV, pain control as clinically indicated (4) Microcytic anemia Code(s): D50.9 - IRON DEFICIENCY ANEMIA, UNSPECIFIED Status: Acute Plan: FeSO4 325mg BID, serial H/H monitoring (5) Polysubstance abuse Code(s): F19.10 - OTHER PSYCHOACTIVE SUBSTANCE ABUSE, UNCOMPLICATED Status: Chronic Plan: CM for cessation resources - Plan continue antibiotics, social worker school, respiratory therapy, DVT proph w/SCDs Stable currently Consult Med Oncology regarding SCC lung Consult Gen Surgery for L forearm abscess CM for disposition planning AM lab: CBC
[2018-09-09] MEDS: Piperacillin/Tazobactam 3.375 GM in Sodium Chloride 0.9% 100 ML IVPB SCH (22:30)
[2018-09-09] MEDS: Vancomycin HCl 1.25 GM in Sodium Chloride 0.9% 250 ML 250 ML IVPB SCH (23:36)
[2018-09-10] MEDS: Piperacillin/Tazobactam 3.375 GM in Sodium Chloride 0.9% 100 ML IVPB SCH ×4 (04:34→22:15)
--- NOTE | 2018-09-10 09:51 | PDOC.HOSPP ---
- Subjective Subjective: 58 y/o male with HTN admitted due to syncope and collapse and AMS. Found to have hypotension and MARIE due to volume depletion and was treated with IVF with improvement of hemodynamics and MARIE. Patient also lung who had not followed up finally got lung biopsy which is consistent with squamos cell cancer. Also was seen by GI for microcytic anemia and he is s/p EGD and Colonoscopy. no new problem. Feeling better and ambulating. - Objective Vital Signs & Weight: Vital Signs (12 hours) Temp Pulse Resp BP Pulse Ox 09/10/18 08:00 98 F 84 18 148/60 H 99 Weight Weight 213 lb 2 oz Result Diagrams: 09/08/18 05:02 09/09/18 05:44 ROS - Review of Systems All systems: All other ROS were reviewed and found negative. - Medication Medications: Active Medications Generic Name Dose Route Start Last Admin Trade Name Freq PRN Reason Stop Dose Admin Piperacillin Sod/Tazobactam 100 mls @ 200 mls/hr 09/09/18 22:00 09/10/18 04: 34 Sod 3.375 gm/ Sodium Chloride IVPB 100 mls 0400,1000,1600,2200 LYNN Administration Vancomycin HCl 1.25 gm/ Sodium 250 mls @ 166.67 mls/hr 09/09/18 23:00 23:36 Chloride IVPB 250 mls 1100,2300 LYNN Administration Olmesartan 20 mg 09/09/18 09:00 09/09/18 09:18 Benicar PO 20 mg DAILY LYNN Administration Pantoprazole Sodium 40 mg 09/09/18 21:00 09/09/18 22:34 Protonix PO 40 mg BID LYNN Administration Sodium Chloride 10 ml 09/09/18 09:00 09/09/18 22:35 Flush - Normal Saline IVF 10 ml Q12HR LYNN Administration - Exam awake alert Eye: anicteric sclera ENT: normocephalic atraumatic Neck: symmetric, no JVD Heart: RRR Respiratory: no wheezes, no rales, no ronchi, normal chest expansion Gastrointestinal: soft, non-tender, non-distended, normal bowel sounds Extremities: no cyanosis (Left mid forearm fluctuant mass with some drainage noted), no edema Neurological: CN's grossly intact, no weakness, no focal deficits Musculoskeletal: normal tone, normal strength Psychiatric: normal affect, A&O x 3 Hosp A/P (1) Abscess of left upper extremity Code(s): L02.414 - CUTANEOUS ABSCESS OF LEFT UPPER LIMB Status: Acute (2) Squamous cell carcinoma lung Code(s): C34.90 - MALIGNANT NEOPLASM OF UNSP PART OF UNSP BRONCHUS OR LUNG Status: Acute Qualifiers: Laterality: left Qualified Code(s): C34.92 - Malignant neoplasm of unspecified part of left bronchus or lung (3) Hypotension Status: Resolved (4) Syncope and collapse Code(s): R55 - SYNCOPE AND COLLAPSE Status: Acute (5) Acute kidney injury Code(s): N17.9 - ACUTE KIDNEY FAILURE, UNSPECIFIED Status: Acute (6) Erosive esophagitis Code(s): K22.10 - ULCER OF ESOPHAGUS WITHOUT BLEEDING Status: Acute (7) Microcytic anemia Code(s): D50.9 - IRON DEFICIENCY ANEMIA, UNSPECIFIED Status: Acute (8) Polysubstance abuse Code(s): F19.10 - OTHER PSYCHOACTIVE SUBSTANCE ABUSE, UNCOMPLICATED Status: Chronic (9) COPD (chronic obstructive pulmonary disease) Status: Chronic (10) Chronic lower back pain Code(s): M54.5 - LOW BACK PAIN; G89.29 - OTHER CHRONIC PAIN Status: Chronic (11) Hypertension Code(s): I10 - ESSENTIAL (PRIMARY) HYPERTENSION Status: Chronic (12) Lung mass Code(s): R91.8 - OTHER NONSPECIFIC ABNORMAL FINDING OF LUNG FIELD Status: Chronic - Plan Continue broad spectrum antibiotics. Awaiting Oncology and Gen surg review. Continue other trreatments Diet as tolerated.
[2018-09-10] MEDS: Vancomycin HCl 1.25 GM in Sodium Chloride 0.9% 250 ML 250 ML IVPB SCH ×2 (11:15→22:55)
[2018-09-10] MEDS ORDERED: CEFAZOLIN 2 GM in Sodium Chloride 0.9% 100 ML IVPB SCH (13:30)
[2018-09-10] MEDS ORDERED: CEFAZOLIN 2 GM in Premix Bag 1 BAG IVPB SCH (13:30)
--- NOTE | 2018-09-10 14:01 | CON ---
DATE OF CONSULTATION: CHIEF COMPLAINT: Left forearm abscess. HISTORY OF PRESENT ILLNESS: The patient is a 58-year-old male with a 4-day history of a painful mass. It developed on the dorsum of the mid left forearm. 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 He does not remember being injured or bit by anything. It is draining purulent fluid. PAST MEDICAL HISTORY: COPD, sleep apnea, hypertension, gout, and lung mass. PAST SURGICAL HISTORY: He has had I and D of cellulitis on his right hand. He also had a gastric sleeve in the past. SOCIAL HISTORY: He is an ex-smoker. Occasional alcohol. FAMILY HISTORY: Unremarkable. ALLERGIES: NO KNOWN DRUG ALLERGIES. ASSESSMENT: Abscess of left forearm, he just ate. PLAN: I and D in the morning. Job ID: [id number]
--- NOTE | 2018-09-10 17:12 | PRG ---
DATE OF SERVICE: 09/10/2018 HISTORY OF PRESENT ILLNESS: This is a 58-year-old male seen by me because of anemia, which is microcytic. He had no history of hematochezia or melena. The patient had the lung mass biopsied 3 or 4 days ago. Lung mass does show squamous cell carcinoma. He underwent EGD and colonoscopy by Dr. Mesfin Duenas. He had multiple colon polyps removed. The EGD showed mild esophagitis. He offers no complaints. No abdominal pain or hematochezia. PHYSICAL EXAMINATION: GENERAL: Appears very comfortable. VITAL SIGNS: He is afebrile. Pulse is 84, blood pressure 148/60. HEENT: Conjunctivae are clear. CARDIOVASCULAR: First and second heart sounds normal. LUNGS: Clear to auscultation. ABDOMEN: Soft. No organomegaly. No tenderness. No masses. Bowel sounds normal. CLINICAL IMPRESSION: 1. Microcytic anemia, negative colonoscopy except for multiple colon polyps. No cancer. 2. Focal erosive esophagitis. 3. Newly diagnosed lung cancer, pending Oncology input and possibly surgical input. I will sign off from today and I will recommend a colonoscopy in probably about 2 years because of multiple colon polyps. Job ID: [id number]
--- NOTE | 2018-09-11 01:06 | CON ---
DATE OF CONSULTATION: 09/10/2018 HISTORY OF PRESENT ILLNESS: Mr. Barrera is a 58-year-old male with a long history of tobacco use, who had a known lung mass at least as far back as February of 2018. At that time, he was told to follow up with Pulmonary for further biopsy and workup, but he states he could not afford it and he was lost to follow up. He presented back on this admission with complaints of dehydration from working out in the sun. He also noted that he had a redness and erythema as well as a palpable abnormality on his left forearm that was determined to probably be cellulitis with concern for abscess. On this admission, a lung biopsy was done under CT guidance and proved to be squamous cell carcinoma. Unfortunately, he likely has metastatic disease to at least both lungs. He denies shortness of breath. He has a dry cough, but nothing concerning. He is not losing weight. He denies hemoptysis. He is uninsured and concerned about the cost of the treatment and other workup. PAST MEDICAL HISTORY: 1. COPD. 2. Obstructive sleep apnea. 3. Hypertension. 4. Questionable narcolepsy. 5. Gout. 6. The lung mass has been known for several months. CURRENT MEDICATIONS: 1. Tylenol p.r.n. 2. Dulcolax 10 mg p.o. daily p.r.n. 3. Benicar 20 mg p.o. daily. 4. Zofran 4 mg IV q.6 hours p.r.n. 5. Protonix 40 mg p.o. b.i.d. 6. Zosyn 3.375 g IV q.6 hours. 7. Vancomycin 1 g IV q.12 hours. ALLERGIES: NO KNOWN DRUG ALLERGIES. SOCIAL HISTORY: He does admit to being an ex-smoker, although I am suspicious that he has not quit. He does admit to occasional alcohol use. He is here with a supportive significant other. REVIEW OF SYSTEMS: Otherwise 10-point review of systems is negative. He is feeling much better since the admission and being hydrated. PHYSICAL EXAMINATION: VITAL SIGNS: Temperature 98, pulse 84, respirations 18, O2 saturation 99% on room air, blood pressure 148/60. GENERAL: He is sitting up in bed watching television. No acute distress. HEENT: Extraocular muscles are intact. Pupils react to light. He has no oral cavity lesions. NECK: Supple without lymphadenopathy. CARDIOVASCULAR: Regular rhythm. LUNGS: Clear to auscultation bilaterally. ABDOMEN: Hypoactive bowel sounds. Soft, nontender, nondistended. EXTREMITIES: No edema, he does have a dressed surgical wound on his left forearm. LABORATORY DATA: White blood cell count 11.0, hemoglobin 10.9, platelets 276. Sodium 139, potassium 4.2, chloride 103, CO2 27, BUN 14, creatinine 0.8, glucose 82, calcium 9.7, magnesium 1.9. IMAGIN. Chest CT done on September 07, 2018, shows an enlarging lingular mass as well as enlarged left axillary lymph nodes, it is questionably metastatic, although they could also be related to the lesion on his left forearm. There are new satellite masses along the left inferior pulmonary ligament and posterior basal right lower lobe. 2. CT of the brain done on this hospitalization shows no acute intracranial abnormalities. ASSESSMENT: Mr. Barrera is a 58-year-old male with: 1. 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 2. Left forearm infection on antibiotics. 3. Psychosocial issues including being uninsured. PLAN: 1. He will need further staging with a bone scan and CT of the abdomen and pelvis. We will order these. He does not need to be held in-house for these tests and they can be done as an outpatient. 2. Lung profile is pending on the squamous cell and PDL1 is also pending. 3. We will follow these up as an outpatient. 4. He can follow up with us an outpatient for further treatment decisions. He will need a MediPort, but we will likely have to wait on this until after the infection in his forearm has cleared. 5. We will follow peripherally and make him followup as an outpatient. Job ID: [id number]
[2018-09-11] MEDS: Piperacillin/Tazobactam 3.375 GM in Sodium Chloride 0.9% 100 ML IVPB SCH ×2 (03:37→09:26)
[2018-09-11 04:41] LABS: #Eosinphils 0.4 thou/uL (0.0-0.7); #Lymphocytes 2.2 thou/uL (1.20-3.40); #Neutrophils 4.9 thou/uL (1.40-6.50); %Basophils 0.3 % (0.0-1.0); %Eosinophils 5.1 % (0.0-10.0); %Lymphocytes 25.4 % (21.0-51.0); %Monocytes 11.8 % (0.0-10.0); %Neutrophils 57.4 % (42.0-75.0); Hemoglobin 9.7 g/dL (14.0-18.0); Mean Corpuscular HGB CONC 32.1 g/dL (32.0-36.0); Mean Corpuscular Hemoglobin 23.4 pg (27.0-31.0); Mean Corpuscular Volume 72.7 fL (78.0-98.0); Platelet Count 230 thou/uL (130-400); RBC Distribution Width 15.2 % (11.5-14.5); Red Blood Cell (RBC) Count 4.17 mill/uL (4.70-6.10); White Blood Cell (WBC) Count 8.5 thou/uL (4.8-10.8)
[2018-09-11 05:11] LABS: Anion Gap 11 mmol/L (10-20); BUN (Urea Nitrogen) 13 mg/dL (8.4-25.7); Calc. Creatinine Clearance 129 mL/min (70-130); Calcium 8.9 mg/dL (7.8-10.44); Carbon Dioxide 29 mmol/L (22-29); Chloride 103 mmol/L (98-107); Estimated GFR-MDRD Greater than 90; Glucose 75 mg/dL (70-105); Potassium 3.7 mmol/L (3.5-5.1); Sodium 139 mmol/L (136-145)
[2018-09-11] MEDS ORDERED: Fentanyl 100 MCG/2 ML VIAL ONE (07:47)
[2018-09-11] MEDS ORDERED: HYDROmorphone 2 MG/ML VIAL ONE (07:47)
[2018-09-11] MEDS ORDERED: Bupivacaine HCl 0.5%/Epinephrine 1:200,000/PF 30 ml Vial ONE (08:32)
[2018-09-11] MEDS ORDERED: HYDROcodone/Acetaminophen 7.5/325 mg Tablet PO PRN ×2 (08:46)
[2018-09-11] MEDS ORDERED: Ondansetron HCl/PF 4 MG/2 ML Vial IVP PRN (08:52)
[2018-09-11] MEDS ORDERED: Promethazine HCl 25 MG/ML VIAL IM PRN (08:52)
[2018-09-11] MEDS ORDERED: Promethazine HCl 25 MG/ML VIAL SLOW IVP PRN (08:52)
[2018-09-11] MEDS ORDERED: PACU-Morphine 4MG/ML VIAL SLOW IVP PRN (08:52)
[2018-09-11] MEDS ORDERED: HYDROmorphone 2 MG/ML VIAL SLOW IVP PRN (08:52)
[2018-09-11 09:23] VITALS: BP 140/82; TEMP 97.4
[2018-09-11 10:17] LABS: Vancomycin, Trough 13.3 ug/mL
--- NOTE | 2018-09-11 12:15 | PDOC.HOSPP ---
- Subjective Subjective: Patient seen and examined, no new issues. - Objective Vital Signs & Weight: Vital Signs (12 hours) Temp Pulse Resp BP Pulse Ox 09/11/18 09:15 97.4 F L 65 16 140/82 96 Weight Admit Weight 213 lb 1.92 oz Weight 213 lb 1.92 oz I&O: 09/10/18 09/11/18 09/12/18 06:59 06:59 06:59 Intake Total 1975 Balance 1975 Result Diagrams: 09/11/18 04:28 09/11/18 04:28 ROS - Review of Systems All systems: All other ROS were reviewed and found negative. - Medication Medications: Active Medications Generic Name Dose Route Start Last Admin Trade Name Freq PRN Reason Stop Dose Admin Hydrocodone Bitart/Acetaminophen 2 tab 09/11/18 08:46 09/11/18 09:24 [place] 7.5/325 PO 2 tab Q4H PRN Administration Moderate Pain (4-6) Piperacillin Sod/Tazobactam 100 mls @ 200 mls/hr 09/09/18 22:00 09/11/18 09: 26 Sod 3.375 gm/ Sodium Chloride IVPB 100 mls 0400,1000,1600,2200 LYNN Administration Vancomycin HCl 1.25 gm/ Sodium 250 mls @ 166.67 mls/hr 09/09/18 23:00 22:55 Chloride IVPB 250 mls 1100,2300 LYNN Administration Olmesartan 20 mg 09/09/18 09:00 09/11/18 09:25 Benicar PO 20 mg DAILY LYNN Administration Pantoprazole Sodium 40 mg 09/09/18 21:00 09/11/18 09:25 Protonix PO 40 mg BID LYNN Administration Sodium Chloride 10 ml 09/09/18 09:00 09/10/18 22:58 Flush - Normal Saline IVF 10 ml Q12HR LYNN Administration - Exam NAD, awake alert Eye: PERRL, anicteric sclera ENT: normocephalic atraumatic, no oropharyngeal lesions, moist mucosa Neck: supple, symmetric, no JVD, no Thyromegaly, no lymphadenopathy, no carotid bruit Heart: RRR, no murmur, no gallops, no rubs, normal peripheral pulses Respiratory: CTAB, no wheezes, no rales, no ronchi, normal chest expansion, no tachypnea, normal percussion Gastrointestinal: soft, non-tender, non-distended, normal bowel sounds, no palpable masses, no hepatomegaly, no splenomegaly, no bruit Extremities: no cyanosis (left upper extremity with dressing), no clubbing, no edema Hosp A/P (1) Squamous cell carcinoma lung Code(s): C34.90 - MALIGNANT NEOPLASM OF UNSP PART OF UNSP BRONCHUS OR LUNG Status: Acute Qualifiers: Laterality: left Qualified Code(s): C34.92 - Malignant neoplasm of unspecified part of left bronchus or lung (2) Polysubstance abuse Code(s): F19.10 - OTHER PSYCHOACTIVE SUBSTANCE ABUSE, UNCOMPLICATED Status: Chronic (3) COPD (chronic obstructive pulmonary disease) Status: Chronic (4) Gout Code(s): M10.9 - GOUT, UNSPECIFIED Status: Chronic (5) Hypertension Code(s): I10 - ESSENTIAL (PRIMARY) HYPERTENSION Status: Chronic - Plan - I&D today - labs in AM - if stable will DC if ok with subspecialists - advised to FU with PCP in 1-2 weeks for further care - case and plan d/w patient at length, he understood and agreed with this plan.
--- NOTE | 2018-09-11 13:11 | CT ---
CT ABDOMEN AND PELVIS WITH IV CONTRAST: 09/11/2018 PROVIDED CLINICAL HISTORY: Lung cancer. FINDINGS: The visualized lung bases demonstrate portions of the previously described lingular lung mass. The liver, spleen, pancreas, kidneys, and adrenal glands demonstrate no significant abnormality. The re is a stable, exophytic, hyperdense cyst arising from the posterior aspect of the left kidney, in t he mid portion. Gallstones are noted. There is a small hiatal hernia and changes of a gastric sleeve. No bowel dilatation, inflammatory fat stranding, free fluid, or lymph node enlargement apparent. Pro minent by number but not enlarged retroperitoneal lymph nodes are seen. The osseous structures demonstrate no concerning lytic or blastic lesions. Changes of bilateral femo ral head osteonecrosis without subchondral collapse. Prominent degenerative change involving the lum bar spine. IMPRESSION: 1. No definite CT evidence for metastatic disease. 2. Nonspecific, prominent by number but not pathologically enlarged retroperitoneal lymph nodes. 3. Known lingular lung mass. 4. Chronic findings as above. POS: [facility]
--- NOTE | 2018-09-11 13:20 | PDOC.EVN ---
Event Note - Event Note Event Note: DC SUMMARY #[id number]
[2018-09-11] MEDS: Vancomycin HCl 1.25 GM in Sodium Chloride 0.9% 250 ML 250 ML IVPB SCH (13:31)
--- NOTE | 2018-09-11 22:47 | DIS ---
DATE OF ADMISSION: 09/05/2018 DATE OF DISCHARGE: 09/11/2018 ADMITTING DIAGNOSES: Iron deficiency anemia, left upper limb lesion, and throat pain. DISCHARGE DIAGNOSES: New diagnosis of lung cancer, status post I and D of left upper limb lesion. Iron deficiency anemia, stable. HOSPITAL COURSE: This is a 58-year-old male, who was admitted to the Internal Medicine team with complaints of weakness, malignancy, hypotension, dehydration, admitted to the Internal Medicine Team, seen by Pulmonary, Nephrology, Oncology, General Surgery as well as Gastroenterology. The patient had a lung lesion found, also a lesion in his left upper extremity. He had an I and D done, was found to have stability in his clinical course of stay. Blood cultures negative at 5 days. Stool cultures negative. At point in time of discharge, the patient's labs were acceptable within normal limits as well. No nausea, vomiting, diarrhea, constipation, chest pain, fevers, chills, or shortness of breath. The patient was given clindamycin for 7 days for his lesion in the left upper extremity, which is concerning for infection. Case was discussed with the oncologist. Oncologist discussed the case with the general surgeon and decision was made to discharge the patient and have him follow up with PCP and Oncology within 1 to 2 weeks for further management and care. The patient was advised to make sure the PCP appointments are not missed out, also advised to not smoke or do any illegal drugs activities. Case and plan discussed with the patient at length. He understood and agreed with this plan. DISPOSITION: Home. FOLLOWUP: Follow up with PCP and Oncology within 1 week. MEDICATIONS: See MAR. ACTIVITY: As tolerated with assistance as needed. DIET: Low-fat, low-calorie, high-fiber diet. CONDITION: Stable. PROGNOSIS: Good. Once again, case and plan discussed with the patient at length. He understood and agreed with this plan. Job ID: [id number]
--- NOTE | 2018-09-12 23:10 | OP ---
DATE OF PROCEDURE: 09/11/2018 PREOPERATIVE DIAGNOSIS: Left forearm abscess. PROCEDURE PERFORMED: Incision, drainage, and debridement of left forearm abscess. 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 FINDINGS: A 3 cm raised phlegmon with multiple sinus tracts, left anterior forearm mid shaft. DESCRIPTION OF PROCEDURE: After informed consent was obtained, the patient was taken to the operating room, given general mask anesthesia, placed in supine position. His arm was prepped and draped in usual fashion. Local anesthesia infiltrated subcutaneously and deep with 0.5% Marcaine. An elliptical incision was performed to excise this raised phlegmon. Cultures were obtained of a liquified necrotic material, sent to Pathology for further analysis. Hemostasis achieved with electrocautery. Wound irrigated and the wound packed with damp to dry saline. Sterile bandage applied. The patient tolerated the procedure well, transferred to Recovery in good condition. Sponge and needle count verified correct x2. Job ID: [id number]
--- NOTE | 2018-09-14 13:54 | EKG ---
Test Reason : Blood Pressure : / mmHG Vent. Rate : 094 BPM Atrial Rate : 094 BPM P-R Int : 156 ms QRS Dur : 092 ms QT Int : 350 ms P-R-T Axes : 075 020 047 degrees QTc Int : 437 ms Normal sinus rhythm Possible Left atrial enlargement Borderline ECG Confirmed by TAMIKA CID, AURELIA ([id number]), editor in chief MYRTLE PORTER ([id number]) on 09/14/2018 1:53:18 PM Referred By: Confirmed By:AURELIA LUNDBERG MD
== END 2018-09-11 15:25 | disposition home or self-care (01) | DRG 181 ==
LOC: ERS 16:35 → ERHOLD 20:32 → 2NO 09-06 00:03 → ONC 09-07 17:08
PROVIDERS: ADMIT Internal Medicine; ATTEND Internal Medicine
PROC: 0BBL3ZX Excision of Left Lung, Percutaneous Approach, Diagnostic (ICD-10-PCS; principal; 2018-09-07)
PROC: 0DBK8ZZ Excision of Ascending Colon, Via Natural or Artificial Opening Endoscopic (ICD-10-PCS; 2018-09-09)
PROC: 0DBL8ZZ Excision of Transverse Colon, Via Natural or Artificial Opening Endoscopic (ICD-10-PCS; 2018-09-09)
PROC: 0DBP8ZZ Excision of Rectum, Via Natural or Artificial Opening Endoscopic (ICD-10-PCS; 2018-09-09)
PROC: 0DBM8ZZ Excision of Descending Colon, Via Natural or Artificial Opening Endoscopic (ICD-10-PCS; 2018-09-09)
PROC: 0X9F0ZZ Drainage of Left Lower Arm, Open Approach (ICD-10-PCS; 2018-09-11)
DX: C34.92 Malignant neoplasm of unspecified part of left bronchus or lung (principal); L02.414 Cutaneous abscess of left upper limb; N17.9 Acute kidney failure, unspecified; M62.82 Rhabdomyolysis; K22.10 Ulcer of esophagus without bleeding; J44.9 Chronic obstructive pulmonary disease, unspecified; G47.33 Obstructive sleep apnea (adult) (pediatric); I10 Essential (primary) hypertension; F41.9 Anxiety disorder, unspecified; F32.9 Major depressive disorder, single episode, unspecified; E86.0 Dehydration; I95.9 Hypotension, unspecified; F19.10 Other psychoactive substance abuse, uncomplicated; M54.5 Low back pain; G89.29 Other chronic pain; M10.9 Gout, unspecified; E87.6 Hypokalemia; D50.9 Iron deficiency anemia, unspecified; K64.8 Other hemorrhoids; K63.5 Polyp of colon; Z87.891 Personal history of nicotine dependence; Z79.899 Other long term (current) drug therapy; Z91.19 Patient's noncompliance with other medical treatment and regimen
CPT/HCPCS: 32405; 36415; 36416; 51701; 70450; 71045; 71250; 74177; 77012; 80048; 80053; 80076; 80202; 80306; 80307; 81003; 82274; 82550; 82728; 82977; 83540; 83550; 83605; 83690; 83735; 83880; 84484; 85025; 85610; 85730; 87040; 87070; 87077; 87186; 87205; 88305; 88312; 88313; 88333; 88334; 93005; 96360; 96361; J0670; J0690; J1170; J1644; J2250; J2543; J2916; J3010; J3370; J3490; J7050

== ENCOUNTER 2018-09-21 00:37 | Inpatient (IN) | payer SELFPAY ==
[2018-09-21 01:27] LABS: #Basophils 0.1 thou/uL (0.0-0.2); #Eosinphils 0.4 thou/uL (0.0-0.7); #Lymphocytes 3.1 thou/uL (1.20-3.40); #Monocytes 1.4 thou/uL (0.11-0.59); #Neutrophils 8.2 thou/uL (1.40-6.50); %Basophils 0.5 % (0.0-1.0); %Eosinophils 2.8 % (0.0-10.0); %Lymphocytes 23.7 % (21.0-51.0); %Monocytes 10.6 % (0.0-10.0); %Neutrophils 62.5 % (42.0-75.0); Hemoglobin 11.2 g/dL (14.0-18.0); Mean Corpuscular HGB CONC 31.4 g/dL (32.0-36.0); Mean Corpuscular Hemoglobin 22.9 pg (27.0-31.0); Mean Corpuscular Volume 72.8 fL (78.0-98.0); Mean Platelet Volume 8.4 fL (7.4-10.4); Platelet Count 339 thou/uL (130-400); RBC Distribution Width 15.9 % (11.5-14.5); Red Blood Cell (RBC) Count 4.89 mill/uL (4.70-6.10); White Blood Cell (WBC) Count 13.1 thou/uL (4.8-10.8)
[2018-09-21 01:50] LABS: ALT (SGPT) 12 U/L (8-55); AST (SGOT) 18 U/L (5-34); Albumin 4.3 g/dL (3.5-5.0); Alkaline Phosphatase 170 U/L (40-150); Anion Gap 20 mmol/L (10-20); BUN (Urea Nitrogen) 57 mg/dL (8.4-25.7); Bilirubin, Total 0.6 mg/dL (0.2-1.2); Calc. Creatinine Clearance 0 mL/min (70-130); Calcium 9.9 mg/dL (7.8-10.44); Carbon Dioxide 24 mmol/L (22-29); Chloride 97 mmol/L (98-107); Estimated GFR-MDRD 10; Globulin 4.3 g/dL (2.4-3.5); Glucose 102 mg/dL (70-105); Potassium 4.4 mmol/L (3.5-5.1); Protein, Total 8.6 g/dL (6.0-8.3); Sodium 137 mmol/L (136-145)
[2018-09-21 01:56] LABS: CK (CPK) 237 U/L (30-200); Lipase 16 U/L (8-78)
[2018-09-21] MEDS: Sodium Chloride 0.9% 1,000 ML IV SCH ×3 (05:35→21:06)
--- NOTE | 2018-09-21 06:46 | HP ---
PRIMARY CARE: [facility]. CHIEF COMPLAINT: Generalized weakness. HISTORY OF PRESENT ILLNESS: The patient is a 58-year-old male with recently diagnosed squamous cell lung cancer, presented to the emergency room with above complaints. Please refer to the discharge summary from 10 days ago for details on recent hospitalization. Over the last 1 week or so, the patient has been feeling generally weak and fatigued. He has also lost his appetite to some extent. Over the last 2 to 3 days, the patient has nausea. He has not been eating and drinking well. He also has chronic low back pain, for which he takes Advil 2 to 3 tablets 2 to 3 times a day. He is also compliant with his antihypertensives. He denies any urinary symptoms. No hematuria or urgency reported. He denies any chest pain or palpitations. PAST MEDICAL HISTORY: 1. Recent diagnosis of squamous cell lung cancer. 2. COPD. 3. HTN. 4. Gout. 5. Obstructive sleep apnea. 6. Questionable narcolepsy. 7. Depression. PAST SURGICAL HISTORY: 1. Recent CT-guided lung biopsy. 2. Recent incision and drainage of the left forearm abscess. 3. Gastric sleeve. 4. Right hand surgery. 5. Right pointer finger surgery. ALLERGIES: NO KNOWN DRUG ALLERGIES. CURRENT HOME MEDICATION: 1. Benicar HCTZ 40/25 daily. 2. Lyrica 50 mg b.i.d. 3. Tramadol 50 mg every 8 hourly as needed. 4. The patient recently completed clindamycin. Please note that above medication needs to be verified. SOCIAL HISTORY: The patient currently lives at home with his family. He is an ex-smoker. Drinks alcohol socially. FAMILY HISTORY: Negative for heart disease. REVIEW OF SYSTEMS: All other review of systems reviewed and were found negative. PHYSICAL EXAMINATION: VITAL SIGNS: Temperature 98.1, pulse rate 79, blood pressure 81/43, respirations 16, and O2 saturation 97% on room air. GENERAL: This is a 58-year-old male, in no apparent distress, feels generally weak. HEENT: Head, atraumatic and normocephalic. Sclerae anicteric. Moist mucous membranes. No oral lesion. NECK: Supple. No JVD appreciated. No carotid bruit. LUNGS: Clear to auscultation bilaterally. No wheezing, rales or rhonchi. HEART: S1 and S2 present. Regular rate and rhythm. No rubs or gallops. ABDOMEN: Soft and nontender. Bowel sounds present. EXTREMITIES: No edema or calf tenderness. NEUROLOGIC: Grossly nonfocal, moves all 4 extremities. Power was 5/5 in all extremities. PSYCHIATRIC: Alert, awake, and oriented x3. SKIN: Warm and dry. LYMPH NODES: No palpable lymph nodes in the neck. PERIPHERAL VASCULAR: Radial pulses palpable bilaterally. MUSCULOSKELETAL: No joint swelling tenderness. LABORATORY FINDINGS: WBC 13.1, hemoglobin 11.2, hematocrit 35.6, and platelet of 336. Chemistry showed creatinine of 6.01 with BUN of 57. His creatinine earlier this month was 0.8. Lipase was 16. Troponin was negative. BNP was negative. EKG by my review showed sinus rhythm without significant ST-T wave changes. IMAGING STUDIES: Chest x-ray by my review was negative for infiltrate. IMPRESSION: 1. Acute kidney injury, suspected due to NSAID use. 2. Recent diagnosis of squamous cell lung cancer with probable metastasis to the contralateral lung. 3. Recent left forearm abscess, status post incision and drainage. The patient completed antibiotics. 4. Chronic hypochromic microcytic anemia. 5. Leukocytosis, unlikely to be infectious. 6. Hypertension. 7. Chronic obstructive pulmonary disease. 8. Obstructive sleep apnea. 9. Gout. 10. Anxiety. 11. Depression, mild, stable. 12. Former smoker. 13. History of gastric sleeve surgery. PLAN: The patient will be monitored on the medical floor. Recent CT scan of the abdomen was negative for obstructive uropathy. Contrast-induced nephropathy is also a possibility. Nephrology will be consulted. We will hold Benicar HCTZ. We will add nebulizer treatment as needed. Recheck labs in a.m. We will check urinalysis. Plan of care was discussed with the patient in detail. He stated understanding. Job ID: [id number] MTDD
--- NOTE | 2018-09-21 07:33 | RAD ---
EXAM: Single view of the chest HISTORY: Low blood pressure and cough COMPARISON: 09/05/2018 FINDINGS: Single view of the chest shows a normal sized cardiomediastinal silhouette. A large well-c ircumscribed mass is again seen projecting over the left lower thorax. No pleural effusion is seen. The bones are unremarkable. IMPRESSION: Stable left lung mass
--- NOTE | 2018-09-21 09:32 | ULT ---
RENAL ULTRASOUND: 09/21/18 INDICATIONS: Acute kidney insufficiency. Right kidney measures 11.2 cm in length. Small cyst inferior right kidney measures 1.0 cm. Mild corti shun thinning. Cortical echogenicity appears normally maintained. Left kidney measures 11.6 cm in length. No hydronephrosis. Mild cortical thinning. The visualized bladder is mildly distended and appears unremarkable as imaged. IMPRESSION: Mild cortical thinning. Tiny cyst inferior right kidney. Renal ultrasound otherwise unremarkable. POS: [facility]
[2018-09-21 09:44] LABS: Anion Gap 13 mmol/L (10-20); BUN (Urea Nitrogen) 54 mg/dL (8.4-25.7); Calc. Creatinine Clearance 0 mL/min (70-130); Calcium 8.8 mg/dL (7.8-10.44); Carbon Dioxide 22 mmol/L (22-29); Chloride 105 mmol/L (98-107); Estimated GFR-MDRD 16; Glucose 106 mg/dL (70-105); Potassium 3.9 mmol/L (3.5-5.1); Sodium 136 mmol/L (136-145)
[2018-09-21] MEDS ORDERED: Ondansetron PF 4 MG/2 ML Vial IVP PRN (13:14)
[2018-09-21] MEDS ORDERED: Ondansetron ODT 4 MG TAB PO PRN (13:14)
[2018-09-21] MEDS ORDERED: Prevnar 13-Val Conj/PF 0.5 ML SYRINGE IM ONE (13:30)
[2018-09-21 13:59] VITALS: BMI 30.2
--- NOTE | 2018-09-21 20:33 | CON ---
DATE OF CONSULTATION: REASON FOR CONSULTATION: Elevated creatinine. HISTORY: This is a very pleasant 58-year-old gentleman, who presented to the hospital early this morning. His creatinine was 0.8 on September 11, which increased to 6.0, so I was consulted. The patient denies no headache, numbness, tingling, or weakness. Denies any nausea, vomiting, or chest pain. PAST MEDICAL HISTORY: Significant for COPD, squamous cell lung cancer, gout, obstructive sleep apnea, narcolepsy, depression, CT-guided lung biopsy, forearm abscess, gastric sleeve, right hand surgery. HOME MEDICATIONS: Home medication list reviewed. Hospital medication list reviewed. ALLERGIES: REVIEWED. REVIEW OF SYSTEMS: A 15-point review of system was performed, negative except as noted above. GENERAL: HEAD: NECK: No swelling or lumps. NOSE: No epistaxis or discharge. EYES: No diplopia or pain. RESPIRATORY: CARDIOVASCULAR: GASTROINTESTINAL: /COPY MACHINE OPERATOR: MUSCULOSKELETAL: No joint pain. NEUROPSYCHIATIC SYSTEMS: No suicidal ideation. No ideation. SKIN: Denies any rash or ulcer. CONSTITUTIONAL: No fever or chills. PHYSICAL EXAMINATION: GENERAL: The patient is awake and alert. VITAL SIGNS: Afebrile, pulse 69, breathing 16, blood pressure 160/70. GENERAL APPEARANCE AND MENTAL STATUS: Fair. HEAD/NECK: Normocephalic. Atraumatic. EYES: EOMI. No deformity. EARS: Clear. No ulcers. NOSE: Intact. No lesions. MOUTH: Clear. No discharge. THROAT: Clear. No exudate. LUNGS: Clear. No crackles. CARDIAC: S1, S2. No rub. ABDOMEN: Benign. Bowel sounds positive. GENITALIA/RECTUM: Paula absent. BACK/EXTREMITIES: Edema 0+. NEUROLOGICAL: Alert and motor intact. SKIN: LYMPHATICS: LABORATORY DATA: Creatinine 3.8. ASSESSMENT: 1. Acute kidney injury, improved. 2. Hypertension, stable. 3. Anemia, stable. 4. Continue hydration. 5. No indication for dialysis. Job ID: [id number]
[2018-09-21 21:33] LABS: Bacteria/HPF None Seen HPF (None Seen); Bilirubin Negative (Negative); Blood, Urine Negative (Negative); Clarity Clear (Clear); Glucose, Urine (Dipstick) Normal (Negative); Leukocyte Negative Leu/uL (Negative); Nitrite Negative (Negative); Protein, Urine (Dipstick) Negative (Neg-Trace); RBC/HPF 0-3 HPF (0-3); Squamous Epithelial None Seen HPF (0-3); Urobilinogen Normal mg/dL (Less than 2); WBC/HPF 0-3 HPF (0-3)
[2018-09-22] MEDS ORDERED: Calcium Carbonate 500 MG ChewTAB PO PRN (03:09)
[2018-09-22] MEDS ORDERED: Acetaminophen 325 MG TAB PO PRN (03:09)
[2018-09-22] MEDS ORDERED: Ondansetron ODT 4 MG TAB PO PRN (03:09)
[2018-09-22] MEDS ORDERED: Ondansetron PF 4 MG/2 ML Vial IVP PRN (03:09)
[2018-09-22] MEDS ORDERED: traMADol HCl 50 MG TAB PO PRN (03:12)
[2018-09-22 04:45] LABS: #Basophils 0.1 thou/uL (0.0-0.2); #Eosinphils 0.3 thou/uL (0.0-0.7); #Lymphocytes 1.9 thou/uL (1.20-3.40); #Monocytes 0.8 thou/uL (0.11-0.59); %Basophils 0.7 % (0.0-1.0); %Eosinophils 3.3 % (0.0-10.0); %Lymphocytes 20.7 % (21.0-51.0); %Monocytes 8.8 % (0.0-10.0); %Neutrophils 66.5 % (42.0-75.0); Hemoglobin 10.7 g/dL (14.0-18.0); Mean Corpuscular HGB CONC 32.4 g/dL (32.0-36.0); Mean Corpuscular Hemoglobin 23.8 pg (27.0-31.0); Mean Corpuscular Volume 73.4 fL (78.0-98.0); Mean Platelet Volume 8.8 fL (7.4-10.4); Platelet Count 250 thou/uL (130-400); RBC Distribution Width 15.7 % (11.5-14.5); White Blood Cell (WBC) Count 9.1 thou/uL (4.8-10.8)
[2018-09-22 05:14] LABS: Albumin 3.5 g/dL (3.5-5.0); Anion Gap 12 mmol/L (10-20); BUN (Urea Nitrogen) 35 mg/dL (8.4-25.7); BUN/Creatinine Ratio 24.65; Calc. Creatinine Clearance 76 mL/min (70-130); Calcium 9.4 mg/dL (7.8-10.44); Carbon Dioxide 21 mmol/L (22-29); Chloride 108 mmol/L (98-107); Estimated GFR-MDRD 51; Glucose 76 mg/dL (70-105); Phosphorus 2.8 mg/dL (2.3-4.7); Potassium 4.2 mmol/L (3.5-5.1); Sodium 137 mmol/L (136-145)
[2018-09-22] MEDS: Sodium Chloride 0.9% 1,000 ML IV SCH ×2 (09:33→09:50)
[2018-09-22] MEDS: Pregabalin 50 MG CAP PO SCH ×2 (09:42→20:45)
[2018-09-22] MEDS: Famotidine 20 MG TAB PO SCH (09:42)
[2018-09-22] MEDS: Heparin 5,000 UNITS/ML VIAL SC SCH ×2 (09:43→20:46)
[2018-09-22] MEDS: Senokot S 8.6-50 MG TAB PO SCH ×2 (09:44→23:00)
--- NOTE | 2018-09-22 11:08 | PRG ---
DATE OF SERVICE: 09/22/2018 SUBJECTIVE: A 58-year-old male, being seen for acute kidney injury. The patient denies nausea, vomiting, or chest pain. OBJECTIVE: GENERAL: The patient is awake and alert. VITAL SIGNS: Afebrile, pulse 70, breathing 16, blood pressure 123/60. GENERAL APPEARANCE AND MENTAL STATUS: Fair. HEAD/NECK: Normocephalic. Atraumatic. EYES: EOMI. No deformity. EARS: Clear. No ulcers. NOSE: Intact. No lesions. MOUTH: Clear. No discharge. THROAT: Clear. No exudate. LUNGS: Clear. No crackles. CARDIAC: S1, S2. No rub. ABDOMEN: Benign. Bowel sounds positive. GENITALIA/RECTUM: Paula absent. BACK/EXTREMITIES: Edema 0+. NEUROLOGICAL: Alert and motor intact. SKIN: LYMPHATICS: LABORATORY DATA: Show hemoglobin 10.7. Creatinine 1.4. ASSESSMENT AND PLAN: 1. Acute kidney injury, improved. 2. Hypertension, stable. 3. Anemia, stable. 4. Acute tubular necrosis, improved. Job ID: [id number]
--- NOTE | 2018-09-22 14:27 | PDOC.HOSPP ---
- Subjective Encounter Date: 09/22/18 Encounter Time: 14:25 Subjective: Pt seen for followup re; MARIE. Sleepy but arousable, denies any complaints. - Objective Vital Signs & Weight: Vital Signs (12 hours) Temp Pulse Resp BP BP Pulse Ox 09/22/18 12:37 98.2 F 80 18 124/75 97 09/22/18 08:46 98.3 F 77 18 123/62 94 L 09/22/18 04:25 71 18 120/70 92 L 09/22/18 04:00 98.7 F 71 18 120/70 132/94 H 92 L Weight Weight 216 lb I&O: 09/21/18 09/22/18 09/23/18 06:59 06:59 06:59 Intake Total 2570 Output Total 500 Balance 2069 Result Diagrams: 09/22/18 04:33 09/22/18 04:33 Additional Labs: Labs and MARs reviewed by me ROS - Review of Systems Respiratory: denies: cough, shortness of breath, SOB with excertion, pleuritic pain Cardiovascular: denies: chest pain, palpitations, orthopnea, paroxysmal noc. dyspnea, edema, light headedness - Medication Medications: Active Medications Generic Name Dose Route Start Last Admin Trade Name Freq PRN Reason Stop Dose Admin Famotidine 20 mg 09/22/18 09:00 09/22/18 09:42 Pepcid PO 20 mg DAILY LYNN Administration Heparin Sodium (Porcine) 5,000 units 09/22/18 09:00 09/22/18 09:43 Heparin SC 5,000 units BID LYNN Administration Pregabalin 50 mg 09/22/18 09:00 09/22/18 09:42 Lyrica PO 50 mg BID LYNN Administration Senna/Docusate Sodium 1 tab 09/22/18 09:00 09/22/18 09:44 Senokot S PO Not Given BID LYNN Sodium Chloride 10 ml 09/21/18 21:00 09/22/18 09:44 Flush - Normal Saline IVF Not Given Q12HR LYNN - Exam General - other findings: Obese Eye: anicteric sclera ENT: normocephalic atraumatic Neck: supple Heart: RRR, no rubs Respiratory: CTAB, no wheezes, no rales Gastrointestinal: soft, non-tender, normal bowel sounds Neurological: no focal deficits Psychiatric: normal affect, normal behavior Hosp A/P (1) MARIE (acute kidney injury) Code(s): N17.9 - ACUTE KIDNEY FAILURE, UNSPECIFIED Status: Acute (2) Hypertension Code(s): I10 - ESSENTIAL (PRIMARY) HYPERTENSION Status: Chronic (3) Squamous cell carcinoma lung Code(s): C34.90 - MALIGNANT NEOPLASM OF UNSP PART OF UNSP BRONCHUS OR LUNG Status: Chronic Qualifiers: - Plan plan discussed w/ family, out of bed/ambulate Creatinine improved to 1.42. Discontinue ACEI/HCTZ. Start amlodipine. Discussed with oncology service. Pt to have nuclear bone scan (likely tomorrow ) and to follow up with oncology clinic next week.
[2018-09-22] MEDS: Amlodipine 5 MG TAB PO SCH ×2 (14:39→14:46)
[2018-09-23 05:54] LABS: Albumin 3.5 g/dL (3.5-5.0); Anion Gap 9 mmol/L (10-20); BUN (Urea Nitrogen) 24 mg/dL (8.4-25.7); Calc. Creatinine Clearance 107 mL/min (70-130); Calcium 9.3 mg/dL (7.8-10.44); Carbon Dioxide 26 mmol/L (22-29); Chloride 105 mmol/L (98-107); Estimated GFR-MDRD 74; Glucose 98 mg/dL (70-105); Phosphorus 2.2 mg/dL (2.3-4.7); Potassium 4.3 mmol/L (3.5-5.1); Sodium 136 mmol/L (136-145)
[2018-09-23] MEDS ORDERED: Amlodipine 5 MG TAB PO SCH (09:00)
[2018-09-23] MEDS: Pregabalin 50 MG CAP PO SCH (10:32)
[2018-09-23] MEDS: Famotidine 20 MG TAB PO SCH (10:35)
[2018-09-23] MEDS: Heparin 5,000 UNITS/ML VIAL SC SCH (10:35)
[2018-09-23] MEDS: Senokot S 8.6-50 MG TAB PO SCH (10:36)
--- NOTE | 2018-09-23 11:52 | PRG ---
DATE OF SERVICE: 09/23/2018 SUBJECTIVE: A 58-year-old gentleman, being seen for acute kidney injury. The patient denies nausea, vomiting, or chest pain. OBJECTIVE: GENERAL: The patient is awake and alert. VITAL SIGNS: Afebrile. Pulse 75, breathing 16, blood pressure was 133/72. GENERAL APPEARANCE AND MENTAL STATUS: Fair. HEAD/NECK: Normocephalic. Atraumatic. EYES: EOMI. No deformity. EARS: Clear. No ulcers. NOSE: Intact. No lesions. MOUTH: Clear. No discharge. THROAT: Clear. No exudate. LUNGS: Clear. No crackles. CARDIAC: S1, S2. No rub. ABDOMEN: Benign. Bowel sounds positive. GENITALIA/RECTUM: Paula absent. BACK/EXTREMITIES: Edema 0+. NEUROLOGICAL: Alert and motor intact. SKIN: LYMPHATICS: LABORATORY DATA: Reviewed. ASSESSMENT AND PLAN: 1. Chronic kidney disease, stage 2, stable. 2. Hypertension, stable. 3. Acute kidney injury due to acute tubular necrosis, stable. No indication for dialysis. I will sign off on this patient. The patient will follow up to see me in 2 weeks. Job ID: [id number]
[2018-09-23 12:49] VITALS: BP 127/78; TEMP 97.2
--- NOTE | 2018-09-23 14:18 | NM ---
NM Bone Scan STANDARD History: Squamous cell carcinoma. Evaluate for metastasis Comparison: CT chest September 07, 2018 Findings: Delayed whole-body 3 hour images were obtained of the axial and appendicular skeleton after the intravenous administration of 32.8 technetium 99m MDP. No abnormal radiotracer uptake. Normal renal and bladder uptake. Degenerative changes of the ankles. Uptake at the sternomanubrial joint degenerative in nature. Impression: No evidence for osseous metastatic disease.
--- NOTE | 2018-09-23 16:58 | PDOC.MOPN ---
Interval History: he is feeling better, having bone scan this morning and ready to go home - Vital Signs Vital Signs: Vital Signs (12 hours) Temp Pulse Resp BP BP BP Pulse Ox 09/23/18 11:50 97.2 F L 80 18 127/78 97 09/23/18 10:39 95 09/23/18 10:33 81 133/72 09/23/18 08:00 98.2 F 83 18 133/83 95 Weight Weight 216 lb - Physical Exam General: Oriented x3 HEENT: Atraumatic, PERRLA Lungs: Clear to auscultation Cardiovascular: Regular rate Abdomen: Normal bowel sounds Extremities: No clubbing Skin: No rashes - Labs Result Diagrams: 09/22/18 04:33 09/23/18 04:45 Lab results: Laboratory Results - last 24 hr 09/23/18 04:45: Sodium 136, Potassium 4.3, Chloride 105, Carbon Dioxide 26, Anion Gap 9 L, BUN 24, Creatinine 1.03, Estimated GFR (MDRD) 74, BUN/Creatinine Ratio 23.30, Glucose 98, Calcium 9.3, Phosphorus 2.2 L, Albumin 3.5 A/P - Problem (1) Lung cancer Code(s): C34.90 - MALIGNANT NEOPLASM OF UNSP PART OF UNSP BRONCHUS OR LUNG Status: Acute - Plan Plan: 1. bone scan today 2. f/u as outpt to start chemo+ keytruda
--- NOTE | 2018-09-23 21:04 | DIS ---
DATE OF ADMISSION: 09/21/2018 DATE OF DISCHARGE: 09/23/2018 PRIMARY CARE PROVIDER: Dr. Gifty Malik. DISCHARGE DIAGNOSIS: Acute kidney injury, most likely secondary to nonsteroidal anti-inflammatory agent use. CONSULTATIONS DURING THIS HOSPITALIZATION: Nephrology, Dr. Doty. DISCHARGE MEDICATIONS: 1. Lyrica 50 mg 2 times a day. 2. Clindamycin 300 mg every 8 hours. 3. Tramadol p.r.n. 4. Phosphorus 250 mg tablet 2 times a day for 5 days. HOSPITAL COURSE: Mr. Barrera is a pleasant 58-year-old gentleman, who was admitted to [facility] on September 21, 2018, for acute kidney injury in the context of nonsteroidal anti-inflammatory drug use. He was seen by Nephrology Service. Nephrotoxic medications including Benicar and hydrochlorothiazide were held. His blood pressure remained stable. He is not being discharged home on any antihypertensives. He has been advised to check his blood pressure and heart rate 3 times a day and show the readings to his primary care provider. Abdominal ultrasound showed mild cortical thinning and tiny cyst in the inferior right kidney. His creatinine normalized. He also underwent nuclear bone scan on the day of discharge, which did not show any evidence for osseous metastatic disease. He will go to Oncology Clinic the afternoon of the day of discharge for followup. FOLLOWUP APPOINTMENTS: With Oncology on September 23 and with primary care provider in 1 weeks' time. On the day of discharge, Mr. Barrera has normal sodium, normal potassium, and normal creatinine of 1.03. His phosphorus is 2.2. He is being discharged home on phosphorus supplement. Many thanks for allowing me to participate in your patient's care. Please feel free to contact me with any questions or concerns. DISCHARGE DESTINATION: Home. TIME SPENT: Total amount of time spent coordinating this discharge: 32 minutes. Job ID: [id number]
--- NOTE | 2018-09-25 10:09 | EKG ---
Test Reason : Blood Pressure : / mmHG Vent. Rate : 093 BPM Atrial Rate : 093 BPM P-R Int : 154 ms QRS Dur : 088 ms QT Int : 354 ms P-R-T Axes : 071 024 044 degrees QTc Int : 440 ms Normal sinus rhythm Normal ECG Confirmed by TAMIKA CID, AURELIA ([id number]), newspaper or periodical editor MYRTLE PORTER ([id number]) on 09/25/2018 10:08:53 AM Referred By: Confirmed By:AURELIA LUNDBERG MD
== END 2018-09-23 14:57 | disposition home or self-care (01) | DRG 683 ==
LOC: ERS 00:37 → ERHOLD 02:54 → 2NO 12:50
PROVIDERS: ADMIT Internal Medicine; ATTEND Internal Medicine
DX: N17.0 Acute kidney failure with tubular necrosis (principal); C34.90 Malignant neoplasm of unspecified part of unspecified bronchus or lung; J44.9 Chronic obstructive pulmonary disease, unspecified; M10.9 Gout, unspecified; G47.33 Obstructive sleep apnea (adult) (pediatric); F32.9 Major depressive disorder, single episode, unspecified; M54.2 Cervicalgia; G89.29 Other chronic pain; D72.829 Elevated white blood cell count, unspecified; N18.2 Chronic kidney disease, stage 2 (mild); N14.1 Nephropathy induced by other drugs, medicaments and biological substances; T39.395A Adverse effect of other nonsteroidal anti-inflammatory drugs [NSAID], initial encounter; Z98.84 Bariatric surgery status; Z79.899 Other long term (current) drug therapy; Z87.891 Personal history of nicotine dependence; D50.9 Iron deficiency anemia, unspecified; F41.9 Anxiety disorder, unspecified; I12.9 Hypertensive chronic kidney disease with stage 1 through stage 4 chronic kidney disease, or unspecified chronic kidney disease
CPT/HCPCS: 36415; 71045; 76770; 78306; 80053; 80069; 81001; 82550; 83690; 83880; 84484; 85025; 93005; 96360; 96361; A9503; J1644

== ENCOUNTER 2019-03-23 08:24 | Outpatient (CLI) | payer MEDICARE ==
--- NOTE | 2019-03-23 09:31 | CT ---
CT CHEST AND ABDOMEN WITH IV CONTRAST CLINICAL INDICATION: Shortness of breath. COMPARISON: Noncontrast CT thorax on 09/07/[address] abdomen on 09/11/2018. FINDINGS: CT thorax: Aorta: The aorta is normal in caliber without evidence of an aortic dissection. Lungs: Large heterogeneous left upper lobe and left hilar mass is again seen and has enlarged when co mpared to prior exam. This mass on the current exam measures 10 cm craniocaudal x11.4 cm AP x8.8 cm transverse and previously measured 8.9 cm craniocaudal x8.1 cm transverse x6.7 cm AP. Adjacent linear densities are seen in the lateral aspect left upper lobe just superior to the mass which may be related to mild volume loss or postobstructive changes. There is a pleural-based nodule now seen at t he posterior lateral left lung base measuring 19 mm x 10 mm. This was not seen on prior studies. No additional discrete pulmonary nodule or mass is identified. Mild emphysematous changes are seen in the upper lobes with stable mild scarring in the right lung ap ex. No pleural effusion is seen. Mediastinum: No enlarged mediastinal lymph nodes are seen by CT size criteria. Thyroid gland: Normal CT appearance. Osseous structures: Degenerative changes are seen in the thoracic as well as lumbar spine with promin ent hemangioma again seen in the T10 vertebral body. No suspicious lytic or sclerotic osseous lesions are identified. Chest wall: No abnormality visualized. CT abdomen: Liver: Within normal limits Spleen: Within normal limits Gallbladder: Evidence of cholelithiasis again noted. Pancreas: Within normal limits Adrenal glands: Within normal limits Kidneys: Subcentimeter too small to characterize exophytic hypodense lesion midportion left kidney an d at the inferior pole right kidney are stable and difficult to directly characterize but statistically likely represent cysts. No enhancing renal mass is appreciated, and there is no hydrone phrosis. Aorta: Mild atherosclerotic plaque and vascular calcifications. Bowel: Postsurgical changes of the stomach with evidence of small hiatal hernia. Loops of small bowel are normal in caliber. Peritoneum and retroperitoneum: There is a small nonspecific nonenlarged left para-aortic lymph node measuring 9 mm in short axis dimension. This is stable compared to prior exam. No enlarged lymph nodes are seen by CT size criteria. No free fluid or fluid collection is seen in the abdomen. IMPRESSION: 1. Interval enlargement of a large heterogeneous left upper lobe/left hilar mass. 2. Interval development of a pleural-based nodule posterolateral left lower lobe. 3. No evidence of lymphadenopathy. 4. Cholelithiasis. 5. Additional incidental findings as described above.
--- NOTE | 2019-03-23 10:02 | MRI ---
MRI of thebrain with and without contrast: 03/23/2019 COMPARISON:None available HISTORY:Lung cancer, staging examination TECHNIQUE: Multiplanar multisequence MR imaging of thebrain with and without IV contrast Findings:The diffusion weighted imaging demonstrates no evidence for acute infarction and the axial g radient echo imaging demonstrates no evidence for intracranial hemorrhage. There are a few opacified mastoid air cells bilaterally. The imaged paranasal sinuses appear unremark able. The arterial flow voids at the axial level of the skull base appear unremarkable on the T2-weighted i maging. No midline shift, mass effect, or ventricular enlargement is noted. The postcontrast imaging demonstrates no enhancing lesions within the brain parenchyma to suggest the presence of intracranial metastatic disease. The regional bone marrow signal intensity appears unremarkable. IMPRESSION:No MR evidence of intracranial metastatic disease.
--- NOTE | 2019-03-23 12:58 | NM ---
WHOLE BODY BONE SCAN: HISTORY: Lung cancer RADIOPHARMACEUTICAL: 31.8 mCi technetium-99m MDP injected intravenously. COMPARISON: 09/23/2018 FINDINGS: No other abnormal areas of tracer localization seen in the skeleton to suggest metastatic disease. Tracer excretion through the kidneys is within normal limits. IMPRESSION: No scintigraphic evidence of osseous metastatic disease.
[2019-03-23] MEDS ORDERED: Iopamidol 370 76% 100 ML VIAL ONE (16:02)
== END 2019-03-23 08:25 | disposition home or self-care (01) ==
LOC: NM 08:24
PROVIDERS: ATTEND Internal Medicine Medical Oncology
DX: C34.12 Malignant neoplasm of upper lobe, left bronchus or lung (principal); C78.01 Secondary malignant neoplasm of right lung; R91.8 Other nonspecific abnormal finding of lung field; K80.20 Calculus of gallbladder without cholecystitis without obstruction
CPT/HCPCS: 70553; 71260; 74160; 78306; A9503; Q9967

== ENCOUNTER 2019-04-21 12:58 | Day surgery (SDC) | payer MEDICARE, OTHER ==
[2019-04-21] MEDS ORDERED: Pembrolizumab 200 MG in Sodium Chloride 0.9% 250 ML 250 ML IV SCH (13:30)
[2019-04-21 14:16] VITALS: BP 159/91; TEMP 97.7
== END 2019-04-21 16:14 | disposition home or self-care (01) ==
LOC: ONC/OP 12:58
PROVIDERS: ATTEND Internal Medicine Medical Oncology
DX: Z51.12 Encounter for antineoplastic immunotherapy (principal); C34.12 Malignant neoplasm of upper lobe, left bronchus or lung; C78.01 Secondary malignant neoplasm of right lung
CPT/HCPCS: 96413

== ENCOUNTER 2019-05-12 12:21 | Day surgery (SDC) | payer MEDICARE ==
[~2019-05-12 12:21] MED LIST changes: +Pembrolizumab 200 MG in Sodium Chloride 0.9% 250 ML 250 ML IV SCH; -Sodium Chloride 0.9% 15 ML NEB ONE
[2019-05-12 13:23] VITALS: BP 173/109; TEMP 97.9
== END 2019-05-12 14:11 | disposition home or self-care (01) ==
LOC: ONC/OP 12:21
PROVIDERS: ATTEND Internal Medicine Medical Oncology
DX: Z51.12 Encounter for antineoplastic immunotherapy (principal); C34.12 Malignant neoplasm of upper lobe, left bronchus or lung; C78.01 Secondary malignant neoplasm of right lung
CPT/HCPCS: 96413

== ENCOUNTER 2019-06-02 13:14 | Day surgery (SDC) | payer MEDICARE, OTHER ==
[2019-06-02] MEDS ORDERED: Sodium Chloride 0.9% 20 ML ONE (13:26)
[2019-06-02] MEDS ORDERED: cloNIDine 0.1 MG TAB PO SCH (14:45)
[2019-06-02 15:23] VITALS: TEMP 97.8
[2019-06-02 15:37] VITALS: BP 158/110
== END 2019-06-02 16:12 | disposition home or self-care (01) ==
LOC: ONC/OP 13:14
PROVIDERS: ATTEND Internal Medicine Medical Oncology
DX: Z51.12 Encounter for antineoplastic immunotherapy (principal); C34.12 Malignant neoplasm of upper lobe, left bronchus or lung; C78.01 Secondary malignant neoplasm of right lung
CPT/HCPCS: 96413; 99211; G0463

== ENCOUNTER 2019-06-13 18:26 | Emergency (ER) | payer MEDICARE, OTHER ==
[~2019-06-13 18:26] MED LIST changes: +Iopamidol-370 76% 500 ML 1 ML ONE; -Pembrolizumab 200 MG in Sodium Chloride 0.9% 250 ML 250 ML IV SCH
[2019-06-13 19:18] LABS: #Eosinphils 0.3 thou/uL (0.0-0.7); #Neutrophils 6.6 thou/uL (1.40-6.50); %Basophils 0.3 % (0.0-1.0); %Eosinophils 3.3 % (0.0-10.0); %Lymphocytes 10.7 % (21.0-51.0); %Monocytes 11.2 % (0.0-10.0); %Neutrophils 74.4 % (42.0-75.0); Hemoglobin 9.5 g/dL (14.0-18.0); Mean Corpuscular HGB CONC 31.3 g/dL (32.0-36.0); Mean Corpuscular Hemoglobin 23.7 pg (27.0-31.0); Mean Corpuscular Volume 75.7 fL (78.0-98.0); Mean Platelet Volume 8.4 fL (7.4-10.4); Platelet Count 287 thou/uL (130-400); RBC Distribution Width 14.9 % (11.5-14.5); Red Blood Cell (RBC) Count 3.99 mill/uL (4.70-6.10); White Blood Cell (WBC) Count 8.8 thou/uL (4.8-10.8)
[2019-06-13 19:42] LABS: ALT (SGPT) 19 U/L (8-55); AST (SGOT) 20 U/L (5-34); Albumin 3.2 g/dL (3.5-5.0); Alkaline Phosphatase 203 U/L (40-110); Anion Gap 12 mmol/L (10-20); BUN (Urea Nitrogen) 19 mg/dL (8.4-25.7); Bilirubin, Total 1.3 mg/dL (0.2-1.2); CK (CPK) 307 U/L (30-200); Calc. Creatinine Clearance 0 mL/min (70-130); Calcium 8.4 mg/dL (7.8-10.44); Carbon Dioxide 27 mmol/L (22-29); Chloride 101 mmol/L (98-107); Estimated GFR-MDRD 79; Globulin 2.8 g/dL (2.4-3.5); Glucose 153 mg/dL (70-105); Lipase 15 U/L (8-78); Potassium 3.4 mmol/L (3.5-5.1); Sodium 137 mmol/L (136-145)
--- NOTE | 2019-06-13 20:50 | CT ---
CT ANGIOGRAM OF CHEST WITH CONTRAST: History: Chest pain, lung cancer. Comparison: CT chest, 03-23-2019 FINDINGS: CT angiogram of the chest performed after the intravenous administration of contrast. 3D rendering pr ovided. There is occlusion of the inferior lingula pulmonary artery by the large lingular left upper lobe mas s which extends beyond the major fissure to the left lower lobe. There is attenuation of the anterior segment left lower lobe pulmonary artery from mass effect of the mass. The largest AP window lymph node measures 9 mm in short axis, larger than the comparison exam. Larges t prevascular lymph node measures 9 mm in short axis, previously 5 mm. There is no intraluminal pulmonary arterial filling defect. No pericardial effusion. The lingular mas s has developed foci of central necrosis with posterior obstructing pneumonitis involving the majorit y of the inferior lingula. Air bronchograms throughout the lingular mass. Limited evaluation of the upper abdomen is unremarkable. High grade back ground central lobular emphy sema. No acute displaced rib fracture. IMPRESSION: 1. No intraluminal filling defect of a pulmonary embolism. 2. Occluded left inferior lingula pulmonary artery due to compression from the lingular mass. 3. Extensive post obstructive consolidation of the left upper lobe and lingula with numerous air bron chograms as well as necrosis. Patient's symptomatology is likely sequellae of mass erosion into a myrtle gular bronchus. 4. Increasing size of prevascular AP window and pretracheal lymph nodes although are not per size cri teria to identify as malignant. POS: HOME
--- NOTE | 2019-06-23 16:50 | EKG ---
Test Reason : Blood Pressure : / mmHG Vent. Rate : 090 BPM Atrial Rate : 090 BPM P-R Int : 158 ms QRS Dur : 104 ms QT Int : 384 ms P-R-T Axes : 071 043 039 degrees QTc Int : 469 ms Normal sinus rhythm Nonspecific T wave abnormality Prolonged QT Abnormal ECG Confirmed by TAMIKA CID, AURELIA ([id number]), school photograph editor MYRTLE PORTER ([id number]) on 06/23/2019 4:49:31 PM Referred By: Confirmed By:AURELIA LUNDBERG MD
== END 2019-06-13 22:39 | disposition home or self-care (01) ==
LOC: ERS 18:26
DX: C34.90 Malignant neoplasm of unspecified part of unspecified bronchus or lung (principal); R04.2 Hemoptysis; I10 Essential (primary) hypertension; J44.9 Chronic obstructive pulmonary disease, unspecified; F32.9 Major depressive disorder, single episode, unspecified
CPT/HCPCS: 36415; 71275; 80053; 82550; 83690; 84484; 85025; 93005; 96360; Q9967

== ENCOUNTER → 2019-06-27 | Day surgery (SDC) | payer MEDICARE, OTHER ==
[~2019-06-27] MED LIST changes: -Iopamidol-370 76% 500 ML 1 ML ONE; +Pembrolizumab 200 MG in Sodium Chloride 0.9% 250 ML 250 ML IV SCH
[2019-06-27 15:34] VITALS: BP 140/80; TEMP 98.7
== END ==
LOC: ONC/OP 15:13 → EEVIPCON 15:13
PROVIDERS: ATTEND Internal Medicine Medical Oncology
DX: Z51.12 Encounter for antineoplastic immunotherapy (principal); C34.12 Malignant neoplasm of upper lobe, left bronchus or lung; C78.01 Secondary malignant neoplasm of right lung
CPT/HCPCS: 96413

== ENCOUNTER 2019-07-18 13:30 | Outpatient (CLI) | payer MEDICARE, OTHER ==
--- NOTE | 2019-07-18 15:01 | CT ---
CT THORAX WITH CONTRAST: DATE: 07/18/2019 HISTORY: 59-year-old male with left upper lobe lung cancer. Follow-up. COMPARISON: 03/23/2019 and 06/13/2019 FINDINGS: The large mass involving the lingula of left upper lobe, measured as 10 x 11.4 x 8.8 cm on 03/23/2019 had become cavitated and complicated by surrounding pneumonia as demonstrated by multiple new air bronchograms, on 06/13/2019. On that study, the margins of the tumor were difficult to separate from th e surrounding pneumonic consolidation, and therefore difficult to measure. Now, the surrounding consolidation has significantly decreased in size since 06/13/2019, and most of th e air bronchogram has resolved, except for at the superior edge of the lesion. The mass continues to have cavitation. It is still difficult to separate the tumor from the residual consolidation, mallory ng it difficult to measure the tumor. The entire tumor-consolidation complex, measures approximately 7.5 x 4 x 8 cm, but it is likely that the actual tumor itself is significantly smaller than this. The tumor mass is again noted to involve the left hilum. The right pretracheal approximately 1 cm in short axis lymph node appears slightly larger than on 03/23/2019. Multiple other mediastinal lymph nodes, including subcarinal lymph nodes, had become significantly larger between 03/23/2019 and 06/13/19 20. Very have now decreased in size compared to 06/13/2019. For example, left subcarinal lymph node is currently approximately 3 x 1.5 cm (coronal image 42 of 77, series 5). The are probably malignant. Numerous mildly enlarged AP window lymph nodes are larger than on 03/23/2019, at but smaller than on 06/13/2019. On 03/23/2019, a 1 x 1.9 cm left lower lobe pulmonary nodule broadly abutting the posterolateral pleur al surface was noted. It was still present on 06/13/2019. Now, it it has become incorporated into a new broad region of thickening of both the visceral and parietal pleura which extends from the [place] lateral portion to the posterior portion of the left hemithoracic cavity. Greatest transverse thickness of the pleural effusion is located anterolaterally at the base, greater than 3 cm. Because of this new pleural thickening and loculated effusion, the pleural-based pulmonary nodule is difficult to separate and identify. No right-sided pleural effusion. Right lung is relatively clear. No thoracic aortic aneurysm or disse ction. No pericardial effusion or cardiomegaly. No adrenal nodule. New small soft tissue density occupying the right lateral lumen of the mid thoracic trachea, new since the prior CT. Perhaps this r epresents secretions. No destructive osseous lesion identified IMPRESSION: 1) the large primary lung cancer involving the lingula and some of the anterior segment of the left u pper lobe demonstrated on 03/23/2019, had become complicated by superimposed surrounding consolidation of a pneumonia on 06/13/2019. Now, both the surrounding pneumonia and the tumor itself michel ve become significant a smaller. However, precise measurements of the tumor are difficult to obtain because it is inseparable from the residual consolidated lung. 2) tumor cavitation. 3) the mediastinal malignant lymphadenopathy had become worse on 06/13/2019, but has since improved. 4) new loculated left pleural effusion with pleural thickening, probably malignant. See above comment s.
[2019-07-18] MEDS ORDERED: Iopamidol-370 76% 500 ML 1 ML ONE (15:42)
== END 2019-07-18 13:31 | disposition home or self-care (01) ==
LOC: BICCT 13:30
PROVIDERS: ATTEND Internal Medicine Medical Oncology
DX: C34.12 Malignant neoplasm of upper lobe, left bronchus or lung (principal); C78.01 Secondary malignant neoplasm of right lung; R59.0 Localized enlarged lymph nodes; J90 Pleural effusion, not elsewhere classified; J92.9 Pleural plaque without asbestos
CPT/HCPCS: 71260; Q9967

== ENCOUNTER 2019-07-28 11:57 | Day surgery (SDC) | payer MEDICARE, OTHER ==
[2019-07-28] MEDS ORDERED: Sodium Chloride 0.9% 20 ML ONE (12:04)
[2019-07-28 12:08] VITALS: BP 179/103; TEMP 97.8
== END 2019-07-28 13:22 | disposition home or self-care (01) ==
LOC: ONC/OP 11:57
PROVIDERS: ATTEND Internal Medicine Medical Oncology
DX: Z51.12 Encounter for antineoplastic immunotherapy (principal); C34.12 Malignant neoplasm of upper lobe, left bronchus or lung; C78.01 Secondary malignant neoplasm of right lung
CPT/HCPCS: 96413

== ENCOUNTER 2019-09-08 16:43 | Day surgery (SDC) | payer MEDICARE, OTHER ==
[2019-09-08 16:47] VITALS: BP 125/74; TEMP 97.7
[2019-09-08] MEDS ORDERED: Sodium Chloride 0.9% 20 ML ONE (16:58)
[2019-09-08] MEDS ORDERED: diphenhydrAMINE 25 MG CAP PO SCH (17:00)
== END 2019-09-08 17:39 | disposition home or self-care (01) ==
LOC: ONC/OP 16:43
PROVIDERS: ATTEND Internal Medicine Medical Oncology
DX: Z51.12 Encounter for antineoplastic immunotherapy (principal); C34.12 Malignant neoplasm of upper lobe, left bronchus or lung; C78.01 Secondary malignant neoplasm of right lung
CPT/HCPCS: 96413; Q0163

== ENCOUNTER 2019-10-06 13:15 | Day surgery (SDC) | payer MEDICARE, OTHER ==
[2019-10-06 13:58] VITALS: BP 147/79; TEMP 98.5
== END 2019-10-06 14:31 | disposition home or self-care (01) ==
LOC: ONC/OP 13:15
PROVIDERS: ATTEND Internal Medicine Medical Oncology
DX: Z51.12 Encounter for antineoplastic immunotherapy (principal); C34.12 Malignant neoplasm of upper lobe, left bronchus or lung; C78.01 Secondary malignant neoplasm of right lung
CPT/HCPCS: 96413

== ENCOUNTER 2019-10-27 09:01 | Day surgery (SDC) | payer MEDICARE, OTHER ==
[2019-10-27] MEDS ORDERED: Sodium Chloride 0.9% 20 ML ONE (09:08)
[2019-10-27 10:44] VITALS: BP 131/67; TEMP 97.8
== END 2019-10-27 11:15 | disposition home or self-care (01) ==
LOC: ONC/OP 09:01
PROVIDERS: ATTEND Internal Medicine Medical Oncology
DX: Z51.12 Encounter for antineoplastic immunotherapy (principal); C34.12 Malignant neoplasm of upper lobe, left bronchus or lung; C78.01 Secondary malignant neoplasm of right lung
CPT/HCPCS: 96413

== ENCOUNTER 2019-11-02 13:59 | Outpatient (CLI) | payer MEDICARE, OTHER ==
--- NOTE | 2019-11-02 15:10 | CT ---
CT OF THE PELVIS WITHOUT CONTRAST: 11/02/19 INDICATIONS: History of pain in the sacral region. COMPARISON: Prior CT of the abdomen and pelvis with contrast dated 09/11/18 and a whole body bone scan dated 0. FINDINGS: There is osteonecrosis involving both femoral heads without evidence of subchondral collapse. There i s mild degenerative change at both hips. No displaced fracture is evident. No definite displaced frac ture seen involving the sacrum. There is moderate to severe disc degenerative disease at L4-5. There is mild disc degenerative disease at L5-S1. There is leftward curvature of the lower lumbar spine. No suspicious osteolytic or osteoblastic lesions identified. No enlarged lymph nodes are evident. There are scattered vascular calcifications. There is a 5 mm nonobstructing calculus within the inferior p ole of the right kidney. IMPRESSION: 1. Osteonecrosis of both femoral heads without evidence of subchondral collapse. There is mild d egenerative changes of both hips. 2. No suspicious osteolytic or osteoblastic lesions evident. 3. No displaced fracture is evident. POS: [facility]
--- NOTE | 2019-11-02 15:56 | CT ---
Chest CT: 11/02/2019 COMPARISON: 07/18/2019 HISTORY: Malignant neoplasm of the left upper lobe/bronchus TECHNIQUE: Axial CT imaging at 5 mm intervals from the thoracic inlet through the upper abdomen with IV contrast. Coronal and sagittal reformatted imaging obtained. Findings no axillary lymphadenopathy is noted. There is a new mildly enlarged right paratracheal lymph node on axial image 24 measuring 1.5 cm in sh ort axis dimension. There is soft tissue density in the left hilar region which could represent a mildly enlarged lymph n ode, located posterior to the bronchus supplying the left lower lobe, best seen on axial image 32 and coronal image 31. This area is difficult to directly compare to the prior examination secondary t o extensive abnormal parenchymal opacity in this region on the prior CT exam. The bronchus supplying the lingula is markedly narrowed proximally and appears completely occluded di stally as before. The prior examination demonstrated a irregular 7-8 cm area of cavitary soft tissue density within the lingula which has markedly decreased in conspicuity when compared to the pr ior exam. On today's exam there is a full area of soft tissue density which measures 4.9 x 2.1 x 3.4 cm. There is no pneumothorax seen on either side. Prominent emphysematous changes are noted in up per lobe predominance. There is a focal area of mild linear density with a tiny associated nodule within the right upper lob e posteriorly near the apex, unchanged when compared to prior imaging, which includes a tiny nodule on image 17 measuring approximately 3 mm. Review of the osseous structures of the chest demonstrate a stable nonspecific tiny sclerotic focus w ithin the scapula on the left on axial image 30. Previously noted left pleural fluid and pleural thickening has resolved. The imaged upper abdomen demonstrates partially imaged cholelithiasis as well as a suture line within a partially visualized stomach. IMPRESSION: Aquilla mass within the lingula consistent with the patient's history of lung cancer, less conspicuous than on prior imaging. Lissette prominence in the left hilum and right paratracheal region may signify metastatic adenopathy.
[2019-11-02] MEDS ORDERED: Iopamidol 370 76% 100 ML VIAL ONE (16:21)
== END 2019-11-02 14:00 | disposition home or self-care (01) ==
LOC: BICCT 13:59
PROVIDERS: ATTEND Internal Medicine Medical Oncology
DX: C78.01 Secondary malignant neoplasm of right lung (principal); C34.12 Malignant neoplasm of upper lobe, left bronchus or lung; M87.9 Osteonecrosis, unspecified; M87.852 Other osteonecrosis, left femur; M87.851 Other osteonecrosis, right femur; M16.0 Bilateral primary osteoarthritis of hip
CPT/HCPCS: 71260; 72193; 82565; Q9967

== ENCOUNTER 2019-11-17 13:54 | Day surgery (SDC) | payer MEDICARE, OTHER ==
[2019-11-17 14:20] VITALS: BP 138/88; TEMP 98.2
[2019-11-17] MEDS ORDERED: Sodium Chloride 0.9% 20 ML ONE (14:30)
== END 2019-11-17 15:22 | disposition home or self-care (01) ==
LOC: ONC/OP 13:54
PROVIDERS: ATTEND Internal Medicine Medical Oncology
DX: Z51.12 Encounter for antineoplastic immunotherapy (principal); C34.12 Malignant neoplasm of upper lobe, left bronchus or lung; C78.01 Secondary malignant neoplasm of right lung
CPT/HCPCS: 96413

== ENCOUNTER 2019-12-08 09:50 | Day surgery (SDC) | payer MEDICARE, OTHER ==
[2019-12-08] MEDS ORDERED: Sodium Chloride 0.9% 20 ML ONE (09:53)
[2019-12-08 10:05] VITALS: BP 181/106; TEMP 97.7
== END 2019-12-08 11:12 | disposition home or self-care (01) ==
LOC: ONC/OP 09:50
PROVIDERS: ATTEND Internal Medicine Medical Oncology
DX: Z51.12 Encounter for antineoplastic immunotherapy (principal); C34.12 Malignant neoplasm of upper lobe, left bronchus or lung; C78.01 Secondary malignant neoplasm of right lung
CPT/HCPCS: 96413

== ENCOUNTER 2019-12-29 12:54 | Day surgery (SDC) | payer MEDICARE, OTHER ==
[2019-12-29] MEDS ORDERED: Sodium Chloride 0.9% 20 ML ONE (13:06)
[2019-12-29 14:13] VITALS: BP 143/88; TEMP 98
== END 2019-12-29 14:40 | disposition home or self-care (01) ==
LOC: ONC/OP 12:54
PROVIDERS: ATTEND Internal Medicine Medical Oncology
DX: Z51.12 Encounter for antineoplastic immunotherapy (principal); C34.12 Malignant neoplasm of upper lobe, left bronchus or lung; C78.01 Secondary malignant neoplasm of right lung
CPT/HCPCS: 96413

== ENCOUNTER 2020-01-09 07:51 | Emergency (ER) | payer MEDICARE | END 2020-01-09 08:15 | disposition home or self-care (01) | LOC: ERS 07:51 | DX: L03.312 Cellulitis of back [any part except buttock and flank] (principal); L02.212 Cutaneous abscess of back [any part, except buttock and flank]; M10.9 Gout, unspecified; J44.9 Chronic obstructive pulmonary disease, unspecified; F32.9 Major depressive disorder, single episode, unspecified; I10 Essential (primary) hypertension | CPT/HCPCS: 99283 ==

== ENCOUNTER 2020-01-24 11:24 | Day surgery (SDC) | payer MEDICARE, OTHER ==
[2020-01-24 12:53] VITALS: BP 125/86; TEMP 98
== END 2020-01-24 12:57 | disposition home or self-care (01) ==
LOC: ONC/OP 11:24
PROVIDERS: ATTEND Internal Medicine Hematology & Oncology
DX: Z51.12 Encounter for antineoplastic immunotherapy (principal); C34.12 Malignant neoplasm of upper lobe, left bronchus or lung; C78.01 Secondary malignant neoplasm of right lung
CPT/HCPCS: 96413

== ENCOUNTER 2020-02-14 13:54 | Day surgery (SDC) | payer MEDICARE, OTHER ==
[2020-02-14] MEDS ORDERED: Sodium Chloride 0.9% 20 ML ONE (14:20)
[2020-02-14 14:26] VITALS: BP 159/102; TEMP 98.7
== END 2020-02-14 15:19 | disposition home or self-care (01) ==
LOC: ONC/OP 13:54
PROVIDERS: ATTEND Internal Medicine Hematology & Oncology
DX: Z51.12 Encounter for antineoplastic immunotherapy (principal); C34.12 Malignant neoplasm of upper lobe, left bronchus or lung; C78.01 Secondary malignant neoplasm of right lung
CPT/HCPCS: 96413; J7050; J9271

== ENCOUNTER 2020-03-06 14:04 | Day surgery (SDC) | payer MEDICARE, OTHER ==
[2020-03-06] MEDS ORDERED: Sodium Chloride 0.9% 20 ML ONE (14:07)
[2020-03-06 14:33] VITALS: BP 152/91; TEMP 97.4
== END 2020-03-06 15:33 | disposition home or self-care (01) ==
LOC: ONC/OP 14:04
PROVIDERS: ATTEND Internal Medicine Hematology & Oncology
DX: Z51.12 Encounter for antineoplastic immunotherapy (principal); C34.12 Malignant neoplasm of upper lobe, left bronchus or lung; C78.01 Secondary malignant neoplasm of right lung
CPT/HCPCS: 96413

== ENCOUNTER 2020-04-27 15:38 | Emergency (ER) | payer MEDICARE ==
[2020-04-27 16:28] LABS: #Basophils 0.1 thou/uL (0.0-0.2); #Eosinphils 0.8 thou/uL (0.0-0.7); #Lymphocytes 2.7 thou/uL (1.20-3.40); #Monocytes 0.9 thou/uL (0.11-0.59); #Neutrophils 3.9 thou/uL (1.40-6.50); %Basophils 0.7 % (0.0-1.0); %Eosinophils 10.1 % (0.0-10.0); %Lymphocytes 32.5 % (21.0-51.0); %Monocytes 10.9 % (0.0-10.0); %Neutrophils 45.9 % (42.0-75.0); Mean Corpuscular HGB CONC 32.2 g/dL (32.0-36.0); Mean Corpuscular Hemoglobin 23.9 pg (27.0-31.0); Mean Corpuscular Volume 74.2 fL (78.0-98.0); Mean Platelet Volume 8.4 fL (7.4-10.4); Platelet Count 392 thou/uL (130-400); RBC Distribution Width 13.8 % (11.5-14.5); Red Blood Cell (RBC) Count 4.59 mill/uL (4.70-6.10); White Blood Cell (WBC) Count 8.4 thou/uL (4.8-10.8)
[2020-04-27 16:45] LABS: Hypochromia SLIGHT = 6-15 cells (100X) (0-5/hpf); MDiff Complete? YES; Microcytosis SLIGHT = 6-15 cells (100X) (0-5/hpf); Ovalocytes SLIGHT = 2-5 cells (100X) (0-1/hpf); Platelet Morphology Comment Appears Adequate; Polychromasia SLIGHT = 2-3 cells (100X) (0-2/hpf)
[2020-04-27 16:47] LABS: ALT (SGPT) 9 U/L (8-55); AST (SGOT) 19 U/L (5-34); Albumin 3.8 g/dL (3.4-4.8); Alkaline Phosphatase 128 U/L (40-110); Anion Gap 14 mmol/L (10-20); BUN (Urea Nitrogen) 23 mg/dL (8.4-25.7); Bilirubin, Total 0.5 mg/dL (0.2-1.2); Calc. Creatinine Clearance 0 mL/min (70-130); Carbon Dioxide 26 mmol/L (23-31); Chloride 102 mmol/L (98-107); Globulin 3.9 g/dL (2.4-3.5); Glucose 97 mg/dL (80-115); Magnesium 1.8 mg/dL (1.6-2.6); Potassium 4.4 mmol/L (3.5-5.1); Protein, Total 7.7 g/dL (5.8-8.1); Sodium 138 mmol/L (136-145)
== END 2020-04-27 18:21 | disposition home or self-care (01) ==
LOC: ERS 15:38
DX: R53.1 Weakness (principal); M10.9 Gout, unspecified; I10 Essential (primary) hypertension; Z79.899 Other long term (current) drug therapy
CPT/HCPCS: 80053; 83735; 84550; 85025; 93005

== ENCOUNTER 2020-05-02 08:46 | Outpatient (CLI) | payer MEDICARE ==
[2020-05-02] MEDS ORDERED: Iopamidol 370 76% 100 ML VIAL ONE (13:55)
== END 2020-05-02 08:47 | disposition home or self-care (01) ==
LOC: CT 08:46
PROVIDERS: ATTEND Internal Medicine Medical Oncology
DX: C34.12 Malignant neoplasm of upper lobe, left bronchus or lung (principal); C78.01 Secondary malignant neoplasm of right lung; I10 Essential (primary) hypertension
CPT/HCPCS: 36415; 71260; 80053; 82248; 83520; 83615; 84100; 84436; 84443; 84550; 86038; 86200; 86225; Q9967

== ENCOUNTER 2020-05-09 12:03 | Day surgery (SDC) | payer MEDICARE, OTHER ==
[2020-05-09 12:23] VITALS: BP 103/76; TEMP 98.6
== END 2020-05-09 13:22 | disposition home or self-care (01) ==
LOC: ONC/OP 12:03
PROVIDERS: ATTEND Internal Medicine Medical Oncology
DX: Z51.12 Encounter for antineoplastic immunotherapy (principal); C34.12 Malignant neoplasm of upper lobe, left bronchus or lung; C78.01 Secondary malignant neoplasm of right lung
CPT/HCPCS: 96413

== ENCOUNTER 2020-05-30 14:33 | Inpatient (IN) | payer MEDICARE, OTHER ==
[2020-05-30 15:09] LABS: #Basophils 0.1 thou/uL (0.0-0.2); #Eosinphils 0.9 thou/uL (0.0-0.7); #Lymphocytes 2.7 thou/uL (1.20-3.40); #Monocytes 0.8 thou/uL (0.11-0.59); #Neutrophils 2.8 thou/uL (1.40-6.50); %Basophils 0.9 % (0.0-1.0); %Eosinophils 11.8 % (0.0-10.0); %Monocytes 11.1 % (0.0-10.0); %Neutrophils 39.3 % (42.0-75.0); Mean Corpuscular Hemoglobin 23.9 pg (27.0-31.0); Mean Corpuscular Volume 72.3 fL (78.0-98.0); Mean Platelet Volume 8.7 fL (7.4-10.4); Platelet Count 310 thou/uL (130-400); RBC Distribution Width 14.8 % (11.5-14.5); Red Blood Cell (RBC) Count 4.17 mill/uL (4.70-6.10); White Blood Cell (WBC) Count 7.2 thou/uL (4.8-10.8)
[2020-05-30 15:45] LABS: ALT (SGPT) 8 U/L (8-55); AST (SGOT) 20 U/L (5-34); Albumin 3.7 g/dL (3.4-4.8); Alkaline Phosphatase 119 U/L (40-110); Anion Gap 17 mmol/L (10-20); BUN (Urea Nitrogen) 33 mg/dL (8.4-25.7); Bilirubin, Total 0.4 mg/dL (0.2-1.2); Calc. Creatinine Clearance 0 mL/min (70-130); Calcium 10.1 mg/dL (7.8-10.44); Carbon Dioxide 23 mmol/L (23-31); Chloride 99 mmol/L (98-107); Globulin 3.9 g/dL (2.4-3.5); Glucose 80 mg/dL (80-115); Potassium 4.5 mmol/L (3.5-5.1); Protein, Total 7.6 g/dL (5.8-8.1); Sodium 134 mmol/L (136-145)
[2020-05-30] MEDS ORDERED: Fentanyl 100 MCG/2 ML VIAL ONE (16:26)
[2020-05-30 17:27] LABS: Anion Gap 15 mmol/L (10-20); BUN (Urea Nitrogen) 32 mg/dL (8.4-25.7); Calc. Creatinine Clearance 0 mL/min (70-130); Carbon Dioxide 25 mmol/L (23-31); Chloride 100 mmol/L (98-107); Glucose 77 mg/dL (80-115); Potassium 4.7 mmol/L (3.5-5.1); Sodium 135 mmol/L (136-145)
[2020-05-30 18:23] LABS: Bilirubin Negative (Negative); Blood, Urine Negative (Negative); Clarity Clear (Clear); Glucose, Urine (Dipstick) Normal (Negative); Ketone, Urine Negative (Negative); Leukocyte Negative Leu/uL (Negative); Nitrite Negative (Negative); Protein, Urine (Dipstick) Negative (Neg-Trace); Specific Gravity, Urine 1.014 (1.002-1.036); Urobilinogen Normal mg/dL (Less than 2); pH, Urine 5.5 (5.0-9.0)
[2020-05-30] MEDS ORDERED: Acetaminophen 325 MG TAB PO PRN (19:30)
[2020-05-30] MEDS ORDERED: Ondansetron ODT 4 MG TAB SL PRN (19:30)
[2020-05-30] MEDS ORDERED: Ondansetron PF 4 MG/2 ML Vial IVP PRN ×2 (19:30→20:22)
[2020-05-30] MEDS ORDERED: Sodium Chloride 0.9% 1,000 ML IV SCH (19:30)
[2020-05-30] MEDS ORDERED: Acetaminophen 500 MG TAB PO PRN (20:22)
[2020-05-30] MEDS ORDERED: Ondansetron ODT 4 MG TAB PO PRN (20:22)
[2020-05-30 23:20] VITALS: BMI 24.5
[2020-05-30] MEDS: Sodium Chloride 0.9% 1,000 ML IV SCH (23:54)
[2020-05-30] MEDS: Famotidine 20 MG TAB PO SCH (23:54)
[2020-05-31 05:35] LABS: SARS-CoV-2 PCR by NAA Not Detected (NotDetected)
[2020-05-31 08:49] LABS: #Basophils 0.1 thou/uL (0.0-0.2); #Eosinphils 0.8 thou/uL (0.0-0.7); #Lymphocytes 2.4 thou/uL (1.20-3.40); #Monocytes 0.6 thou/uL (0.11-0.59); #Neutrophils 1.5 thou/uL (1.40-6.50); %Basophils 1.3 % (0.0-1.0); %Eosinophils 14.2 % (0.0-10.0); %Lymphocytes 45.3 % (21.0-51.0); %Monocytes 10.8 % (0.0-10.0); %Neutrophils 28.5 % (42.0-75.0); Hemoglobin 8.6 g/dL (14.0-18.0); Mean Corpuscular HGB CONC 31.8 g/dL (32.0-36.0); Mean Corpuscular Hemoglobin 23.4 pg (27.0-31.0); Mean Corpuscular Volume 73.6 fL (78.0-98.0); Mean Platelet Volume 8.4 fL (7.4-10.4); Platelet Count 251 thou/uL (130-400); RBC Distribution Width 14.6 % (11.5-14.5); Red Blood Cell (RBC) Count 3.67 mill/uL (4.70-6.10); White Blood Cell (WBC) Count 5.3 thou/uL (4.8-10.8)
[2020-05-31 09:02] LABS: Anion Gap 10 mmol/L (10-20); BUN (Urea Nitrogen) 26 mg/dL (8.4-25.7); Calc. Creatinine Clearance 58 mL/min (70-130); Calcium 8.5 mg/dL (7.8-10.44); Carbon Dioxide 24 mmol/L (23-31); Chloride 107 mmol/L (98-107); Glucose 92 mg/dL (80-115); Potassium 4.5 mmol/L (3.5-5.1); Sodium 136 mmol/L (136-145)
[2020-05-31] MEDS: Sodium Chloride 0.9% 1,000 ML IV SCH ×2 (10:00→19:08)
[2020-05-31] MEDS: HYDROcodone/Acetaminophen 5/325 mg Tablet PO PRN ×2 (13:23→19:08)
[2020-05-31] MEDS: Famotidine 20 MG TAB PO SCH (23:01)
[2020-06-01] MEDS: HYDROcodone/Acetaminophen 5/325 mg Tablet PO PRN ×2 (01:08→13:39)
[2020-06-01] MEDS: Sodium Chloride 0.9% 1,000 ML IV SCH ×2 (05:18→13:40)
[2020-06-01 06:16] LABS: #Basophils 0.1 thou/uL (0.0-0.2); #Eosinphils 0.7 thou/uL (0.0-0.7); #Lymphocytes 2.4 thou/uL (1.20-3.40); #Monocytes 0.5 thou/uL (0.11-0.59); #Neutrophils 1.7 thou/uL (1.40-6.50); %Basophils 1.2 % (0.0-1.0); %Eosinophils 13.8 % (0.0-10.0); %Lymphocytes 43.6 % (21.0-51.0); %Monocytes 9.4 % (0.0-10.0); Hemoglobin 8.7 g/dL (14.0-18.0); Mean Corpuscular HGB CONC 31.1 g/dL (32.0-36.0); Mean Corpuscular Volume 73.9 fL (78.0-98.0); Mean Platelet Volume 8.5 fL (7.4-10.4); Platelet Count 247 thou/uL (130-400); RBC Distribution Width 14.6 % (11.5-14.5); Red Blood Cell (RBC) Count 3.76 mill/uL (4.70-6.10); White Blood Cell (WBC) Count 5.4 thou/uL (4.8-10.8)
[2020-06-01 06:39] LABS: Anion Gap 10 mmol/L (10-20); BUN (Urea Nitrogen) 18 mg/dL (8.4-25.7); Calc. Creatinine Clearance 81 mL/min (70-130); Calcium 8.6 mg/dL (7.8-10.44); Carbon Dioxide 22 mmol/L (23-31); Chloride 109 mmol/L (98-107); Glucose 98 mg/dL (80-115); Potassium 4.2 mmol/L (3.5-5.1); Sodium 137 mmol/L (136-145)
[2020-06-01 07:29] VITALS: BP 124/78; TEMP 97.4
== END 2020-06-01 17:51 | disposition home or self-care (01) | DRG 683 ==
LOC: ERS 14:33 → T4-B 17:59
PROVIDERS: ADMIT Family Medicine; ATTEND Internal Medicine
DX: N17.9 Acute kidney failure, unspecified (principal); I12.0 Hypertensive chronic kidney disease with stage 5 chronic kidney disease or end stage renal disease; C34.12 Malignant neoplasm of upper lobe, left bronchus or lung; E44.0 Moderate protein-calorie malnutrition; Z20.822 Contact with and (suspected) exposure to COVID-19; M10.9 Gout, unspecified; G89.29 Other chronic pain; J44.9 Chronic obstructive pulmonary disease, unspecified; F32.9 Major depressive disorder, single episode, unspecified; G47.33 Obstructive sleep apnea (adult) (pediatric); E66.01 Morbid (severe) obesity due to excess calories; N18.30 Chronic kidney disease, stage 3 unspecified; K21.9 Gastro-esophageal reflux disease without esophagitis; E86.0 Dehydration; F41.9 Anxiety disorder, unspecified; Z87.891 Personal history of nicotine dependence; Z79.899 Other long term (current) drug therapy; Z98.84 Bariatric surgery status; Z68.24 Body mass index [BMI] 24.0-24.9, adult
CPT/HCPCS: 36415; 71045; 76770; 80048; 80053; 81003; 82570; 83605; 83880; 84484; 85025; 85379; 87040; 87086; 87635; 93005; 96374; J3010; U0003; U0005

== ENCOUNTER 2020-06-06 15:18 | Day surgery (SDC) | payer MEDICARE ==
[2020-06-06] MEDS ORDERED: Pembrolizumab 200 MG in Sodium Chloride 0.9% 250 ML 250 ML IV SCH (16:00)
== END 2020-06-06 16:44 | disposition home or self-care (01) ==
LOC: ONC/OP 15:18
PROVIDERS: ATTEND Internal Medicine Medical Oncology
DX: Z51.12 Encounter for antineoplastic immunotherapy (principal); C34.12 Malignant neoplasm of upper lobe, left bronchus or lung; C78.01 Secondary malignant neoplasm of right lung
CPT/HCPCS: 96413; J7050; J9271

== ENCOUNTER 2020-06-24 23:07 | Emergency (ER) | payer MEDICARE ==
[2020-06-24 23:53] LABS: #Basophils 0.1 thou/uL (0.0-0.2); #Eosinphils 0.6 thou/uL (0.0-0.7); #Lymphocytes 2.1 thou/uL (1.20-3.40); #Monocytes 0.7 thou/uL (0.11-0.59); #Neutrophils 1.6 thou/uL (1.40-6.50); %Basophils 1.3 % (0.0-1.0); %Eosinophils 11.5 % (0.0-10.0); %Monocytes 14.3 % (0.0-10.0); %Neutrophils 30.9 % (42.0-75.0); Mean Corpuscular HGB CONC 32.5 g/dL (32.0-36.0); Mean Corpuscular Hemoglobin 23.8 pg (27.0-31.0); Mean Corpuscular Volume 73.2 fL (78.0-98.0); Mean Platelet Volume 10.4 fL (7.4-10.4); Platelet Count 195 thou/uL (130-400); RBC Distribution Width 15.9 % (11.5-14.5)
[2020-06-25 00:15] LABS: ALT (SGPT) Less than 7 U/L (8-55); AST (SGOT) 24 U/L (5-34); Albumin 3.8 g/dL (3.4-4.8); Alkaline Phosphatase 107 U/L (40-110); Anion Gap 17 mmol/L (10-20); BUN (Urea Nitrogen) 43 mg/dL (8.4-25.7); Bilirubin, Total 0.8 mg/dL (0.2-1.2); Calc. Creatinine Clearance 0 mL/min (70-130); Carbon Dioxide 19 mmol/L (23-31); Chloride 100 mmol/L (98-107); Glucose 70 mg/dL (80-115); Lipase 22 U/L (8-78); Potassium 4.4 mmol/L (3.5-5.1); Protein, Total 6.8 g/dL (5.8-8.1); Sodium 132 mmol/L (136-145)
[2020-06-25 02:07] LABS: Anion Gap 13 mmol/L (10-20); BUN (Urea Nitrogen) 40 mg/dL (8.4-25.7); Calc. Creatinine Clearance 0 mL/min (70-130); Calcium 9.3 mg/dL (7.8-10.44); Carbon Dioxide 20 mmol/L (23-31); Chloride 103 mmol/L (98-107); Potassium 4.4 mmol/L (3.5-5.1); Sodium 132 mmol/L (136-145)
[2020-06-25 02:45] LABS: Bilirubin Negative (Negative); Blood, Urine Negative (Negative); Clarity Turbid (Clear); Glucose, Urine (Dipstick) Normal (Negative); Ketone, Urine Negative (Negative); Leukocyte Negative Leu/uL (Negative); Nitrite Negative (Negative); Protein, Urine (Dipstick) 20 mg/dL (Neg-Trace); Specific Gravity, Urine 1.016 (1.002-1.036); Urobilinogen Normal mg/dL (Less than 2)
[2020-06-25 02:52] LABS: Glucose 52 mg/dL (80-115)
== END 2020-06-25 04:14 | disposition home or self-care (01) ==
LOC: ERS 23:07
DX: E86.0 Dehydration (principal); N17.9 Acute kidney failure, unspecified; M10.9 Gout, unspecified; I10 Essential (primary) hypertension; J44.9 Chronic obstructive pulmonary disease, unspecified; Z85.118 Personal history of other malignant neoplasm of bronchus and lung; Z87.891 Personal history of nicotine dependence; Z79.899 Other long term (current) drug therapy
CPT/HCPCS: 36415; 36416; 71045; 80048; 80053; 81003; 83690; 84484; 85025; 93005

== ENCOUNTER 2020-07-19 10:21 | Outpatient (CLI) | payer MEDICARE | END 2020-07-19 10:22 | disposition home or self-care (01) | LOC: PET 10:21 | PROVIDERS: ATTEND Internal Medicine Medical Oncology | DX: C34.12 Malignant neoplasm of upper lobe, left bronchus or lung (principal); R59.0 Localized enlarged lymph nodes | CPT/HCPCS: 78815; A9552 ==

== ENCOUNTER 2020-07-19 12:04 | Emergency (ER) | payer MEDICARE ==
[2020-07-19 12:49] LABS: #Basophils 0.1 thou/uL (0.0-0.2); #Eosinphils 0.5 thou/uL (0.0-0.7); #Lymphocytes 2.6 thou/uL (1.20-3.40); #Monocytes 0.9 thou/uL (0.11-0.59); #Neutrophils 3.6 thou/uL (1.40-6.50); %Basophils 0.9 % (0.0-1.0); %Eosinophils 6.6 % (0.0-10.0); %Lymphocytes 33.8 % (21.0-51.0); %Neutrophils 46.7 % (42.0-75.0); Hemoglobin 9.9 g/dL (14.0-18.0); Mean Corpuscular HGB CONC 32.5 g/dL (32.0-36.0); Mean Corpuscular Volume 73.7 fL (78.0-98.0); Mean Platelet Volume 9.8 fL (7.4-10.4); Platelet Count 231 thou/uL (130-400); RBC Distribution Width 16.4 % (11.5-14.5); Red Blood Cell (RBC) Count 4.14 mill/uL (4.70-6.10); White Blood Cell (WBC) Count 7.6 thou/uL (4.8-10.8)
[2020-07-19 13:12] LABS: ALT (SGPT) 7 U/L (8-55); AST (SGOT) 22 U/L (5-34); Albumin 3.9 g/dL (3.4-4.8); Alkaline Phosphatase 110 U/L (40-110); Anion Gap 16 mmol/L (10-20); BUN (Urea Nitrogen) 20 mg/dL (8.4-25.7); Bilirubin, Total 0.8 mg/dL (0.2-1.2); Calc. Creatinine Clearance 0 mL/min (70-130); Calcium 10.2 mg/dL (7.8-10.44); Carbon Dioxide 23 mmol/L (23-31); Chloride 102 mmol/L (98-107); Globulin 3.1 g/dL (2.4-3.5); Glucose 81 mg/dL (80-115); Potassium 4.1 mmol/L (3.5-5.1); Sodium 137 mmol/L (136-145)
[2020-07-19] MEDS ORDERED: Ketorolac Tromethamine 30 MG/ML VIAL ONE (13:24)
== END 2020-07-19 14:10 | disposition home or self-care (01) ==
LOC: ERS 12:04
DX: D64.9 Anemia, unspecified (principal); Z85.118 Personal history of other malignant neoplasm of bronchus and lung; I10 Essential (primary) hypertension; J44.9 Chronic obstructive pulmonary disease, unspecified; Z87.891 Personal history of nicotine dependence
CPT/HCPCS: 36415; 71045; 80053; 84484; 85025; 93005; 94760; 96372; J1885

== ENCOUNTER 2020-07-27 18:03 | Observation (INO) | payer MEDICARE ==
[2020-07-27] MEDS ORDERED: Ketorolac Tromethamine 30 MG/ML VIAL ONE (18:43)
[2020-07-27 19:19] LABS: #Eosinphils 0.5 thou/uL (0.0-0.7); #Lymphocytes 2.2 thou/uL (1.20-3.40); #Monocytes 0.7 thou/uL (0.11-0.59); #Neutrophils 1.9 thou/uL (1.40-6.50); %Basophils 0.2 % (0.0-1.0); %Eosinophils 10.4 % (0.0-10.0); %Lymphocytes 41.4 % (21.0-51.0); %Monocytes 12.3 % (0.0-10.0); %Neutrophils 35.6 % (42.0-75.0); Hemoglobin 9.2 g/dL (14.0-18.0); Mean Corpuscular HGB CONC 33.6 g/dL (32.0-36.0); Mean Corpuscular Hemoglobin 24.7 pg (27.0-31.0); Mean Corpuscular Volume 73.7 fL (78.0-98.0); Mean Platelet Volume 10.1 fL (7.4-10.4); Platelet Count 159 thou/uL (130-400); RBC Distribution Width 15.6 % (11.5-14.5); Red Blood Cell (RBC) Count 3.73 mill/uL (4.70-6.10); White Blood Cell (WBC) Count 5.2 thou/uL (4.8-10.8)
[2020-07-27 19:39] LABS: Acetaminophen Less than 6.0 mcg/mL (10.0-30.0); Alcohol Less than 10 mg/dL (Less than 10); Salicylate Less than 8.0 mg/dL (15.0-30.0)
[2020-07-27 19:40] LABS: ALT (SGPT) 8 U/L (8-55); AST (SGOT) 21 U/L (5-34); Albumin 3.6 g/dL (3.4-4.8); Alkaline Phosphatase 95 U/L (40-110); Anion Gap 13 mmol/L (10-20); BUN (Urea Nitrogen) 30 mg/dL (8.4-25.7); Bilirubin, Total 0.7 mg/dL (0.2-1.2); Calc. Creatinine Clearance 0 mL/min (70-130); Calcium 10.8 mg/dL (7.8-10.44); Carbon Dioxide 23 mmol/L (23-31); Chloride 104 mmol/L (98-107); Globulin 2.8 g/dL (2.4-3.5); Glucose 78 mg/dL (80-115); Potassium 4.4 mmol/L (3.5-5.1); Protein, Total 6.4 g/dL (5.8-8.1); Sodium 136 mmol/L (136-145)
[2020-07-27 21:07] LABS: Bilirubin Negative (Negative); Blood, Urine Negative (Negative); Clarity Clear (Clear); Glucose, Urine (Dipstick) Normal (Negative); Ketone, Urine Negative (Negative); Leukocyte Negative Leu/uL (Negative); Nitrite Negative (Negative); Protein, Urine (Dipstick) Negative (Neg-Trace); Specific Gravity, Urine 1.017 (1.002-1.036); Urobilinogen Normal mg/dL (Less than 2)
[2020-07-27 21:19] LABS: Medtox Reader # READER 4; Opiate Screen Detected (NotDetected); Phencyclidine (PCP) Not Detected (NotDetected); THC/Cannabinoid Screen Not Detected (NotDetected)
[2020-07-27 21:20] LABS: Amphetamine Not Detected (NotDetected); Barbiturates Screen Not Detected (NotDetected); Benzodiazepine Screen Not Detected (NotDetected); Cocaine Metabolite Screen Not Detected (NotDetected); Medtox Control Line Valid? VALID (VALID); Methadone Not Detected (NotDetected); Methamphetamine Not Detected (NotDetected); Oxycodone Screen Not Detected (NotDetected); Tricyclic Screen Not Detected (NotDetected)
[2020-07-27] MEDS ORDERED: Acetaminophen 325 MG TAB PO PRN (23:44)
[2020-07-27] MEDS ORDERED: HYDROcodone/Acetaminophen 7.5/325 mg Tablet PO PRN (23:44)
[2020-07-28 01:26] VITALS: BMI 24.3
[2020-07-28 01:45] VITALS: BP 100/66; TEMP 97.7
[2020-07-28 15:58] LABS: SARS-CoV-2 PCR by NAA Not Detected (NotDetected)
== END 2020-07-28 01:49 ==
LOC: ERS 18:03 → T4-A 23:06
PROVIDERS: ADMIT Internal Medicine; ATTEND Internal Medicine
DX: M25.551 Pain in right hip (principal); M25.552 Pain in left hip; R53.1 Weakness; I12.9 Hypertensive chronic kidney disease with stage 1 through stage 4 chronic kidney disease, or unspecified chronic kidney disease; N18.30 Chronic kidney disease, stage 3 unspecified; J44.9 Chronic obstructive pulmonary disease, unspecified; K21.9 Gastro-esophageal reflux disease without esophagitis; C34.92 Malignant neoplasm of unspecified part of left bronchus or lung; C78.2 Secondary malignant neoplasm of pleura; M48.061 Spinal stenosis, lumbar region without neurogenic claudication; Z87.891 Personal history of nicotine dependence; Z20.822 Contact with and (suspected) exposure to COVID-19; W19.XXXA Unspecified fall, initial encounter
CPT/HCPCS: 70450; 72125; 72131; 72170; 73502 ×2; 80053; 80306; 80307; 81003; 85025; 87086; 93005; 96374; 99285; U0003; U0005; 36415; G0378; J1885

== ENCOUNTER 2020-08-01 09:49 | Inpatient (IN) | payer MEDICARE ==
[2020-08-01] MEDS ORDERED: Dextrose 50% Abboject 50 ML SYRINGE ONE (10:11)
[2020-08-01 10:20] LABS: #Eosinphils 0.5 thou/uL (0.0-0.7); #Lymphocytes 1.7 thou/uL (1.20-3.40); #Monocytes 0.7 thou/uL (0.11-0.59); #Neutrophils 3.1 thou/uL (1.40-6.50); %Basophils 0.8 % (0.0-1.0); %Eosinophils 8.6 % (0.0-10.0); %Lymphocytes 28.2 % (21.0-51.0); %Monocytes 10.8 % (0.0-10.0); %Neutrophils 51.5 % (42.0-75.0); Hemoglobin 8.9 g/dL (14.0-18.0); Mean Corpuscular Hemoglobin 23.9 pg (27.0-31.0); Mean Corpuscular Volume 74.6 fL (78.0-98.0); Mean Platelet Volume 10.3 fL (7.4-10.4); Platelet Count 166 thou/uL (130-400); RBC Distribution Width 15.4 % (11.5-14.5)
[2020-08-01] MEDS ORDERED: Cefepime 2 GM VIAL ONE (10:47)
[2020-08-01] MEDS ORDERED: Vancomycin 1 GM/200 ML BAG ONE (10:47)
[2020-08-01 10:49] LABS: ALT (SGPT) 7 U/L (8-55); AST (SGOT) 18 U/L (5-34); Albumin 3.1 g/dL (3.4-4.8); Alkaline Phosphatase 124 U/L (40-110); Anion Gap 11 mmol/L (10-20); BUN (Urea Nitrogen) 12 mg/dL (8.4-25.7); Bilirubin, Total 0.9 mg/dL (0.2-1.2); CK (CPK) 48 U/L (30-200); Calc. Creatinine Clearance 0 mL/min (70-130); Calcium 10.4 mg/dL (7.8-10.44); Carbon Dioxide 23 mmol/L (23-31); Chloride 107 mmol/L (98-107); Glucose 80 mg/dL (80-115); Potassium 3.6 mmol/L (3.5-5.1); Protein, Total 6.1 g/dL (5.8-8.1); Sodium 137 mmol/L (136-145)
[2020-08-01 10:54] LABS: MDiff Complete? YES; Microcytosis SLIGHT = 6-15 cells (100X) (0-5/hpf); Platelet Morphology Comment Appears Adequate; Polychromasia SLIGHT = 2-3 cells (100X) (0-2/hpf)
[2020-08-01 11:09] LABS: CKMB 2.5 ng/mL (0-6.6)
[2020-08-01 12:56] LABS: Bilirubin Negative (Negative); Blood, Urine Negative (Negative); Clarity Clear (Clear); Glucose, Urine (Dipstick) Normal (Negative); Ketone, Urine Negative (Negative); Leukocyte Negative Leu/uL (Negative); Nitrite Negative (Negative); Protein, Urine (Dipstick) Negative (Neg-Trace); Specific Gravity, Urine 1.012 (1.002-1.036); Urobilinogen Normal mg/dL (Less than 2); pH, Urine 5.5 (5.0-9.0)
[2020-08-01] MEDS ORDERED: Magnesium 2 GM/50 ML BAG (IN WATER) ONE (14:50)
[2020-08-01 15:41] LABS: Troponin I 0.541 ng/mL (< 0.028)
[2020-08-01] MEDS ORDERED: Dextrose 5 % And 0.9 % NaCl 1,000 ML IV SCH (16:15)
[2020-08-01] MEDS ORDERED: Sodium Chloride 0.9% 1,000 ML IV SCH (16:15)
[2020-08-01 16:34] LABS: Actual Bicarbonate (HCO3a) 22.8 mEq/L (22-28); Analyzer IN Cardio ER; Base Excess (BEa) -1.1 mEq/L (-2.0 to +3.0); CO2 Tension 34.8 mmHg (35.0-45.0); Calcium, Ionized (arterial) 1.38 mmol/L (1.12-1.30); Carboxyhemoglobin (COHb) 0.3 gm% (0.0-3.0); Hemoglobin (Hb) 9.1 g/dL (14.0-18.0); O2 Tension (PaO2), arterial 64.2 mmHg (> 80.0); Potassium - ABG Lab 3.26 mmol/L (3.70-5.30); pH, Arterial 7.44 (7.35-7.45)
[2020-08-01 16:36] LABS: Puncture Site RRA
[2020-08-01] MEDS: Nystatin 500,000 UNITS/5 ML UDCUP SSW SCH ×2 (17:49→21:10)
[2020-08-01 18:20] LABS: Critical Call Chem Troponin I RESULT DECREASING; Troponin I 0.434 ng/mL (< 0.028)
[2020-08-01] MEDS: Dextrose 5 % And 0.9 % NaCl 1,000 ML IV SCH (18:37)
[2020-08-01] MEDS: Vancomycin 1 GM in Premix Bag 1 BAG IVPB SCH (22:19)
[2020-08-01] MEDS: Cefepime 1 GM in Sodium Chloride 0.9% 100 ML IVPB SCH (23:51)
[2020-08-02] MEDS: Nystatin 500,000 UNITS/5 ML UDCUP SSW SCH ×4 (08:55→20:59)
[2020-08-02] MEDS: Vancomycin 1 GM in Premix Bag 1 BAG IVPB SCH ×2 (08:56→20:52)
[2020-08-02] MEDS: Dextrose 5 % And 0.9 % NaCl 1,000 ML IV SCH (08:56)
[2020-08-02] MEDS ORDERED: Amino Acids 4.25 %/Dextrose 5% 2,000 ML BAG IV SCH (09:44)
[2020-08-02 10:08] LABS: Hemoglobin 9.1 g/dL (14.0-18.0); Mean Corpuscular HGB CONC 31.7 g/dL (32.0-36.0); Mean Corpuscular Hemoglobin 23.6 pg (27.0-31.0); Mean Corpuscular Volume 74.5 fL (78.0-98.0); Mean Platelet Volume 9.9 fL (7.4-10.4); Platelet Count 189 thou/uL (130-400); RBC Distribution Width 15.9 % (11.5-14.5); Red Blood Cell (RBC) Count 3.84 mill/uL (4.70-6.10); White Blood Cell (WBC) Count 6.7 thou/uL (4.8-10.8)
[2020-08-02] MEDS: BIOTENE MOUTH SPRAY 44.3 ML PO SCH ×12 (10:14→22:37)
[2020-08-02] MEDS: Cefepime 1 GM in Sodium Chloride 0.9% 100 ML IVPB SCH ×2 (10:14→22:07)
[2020-08-02] MEDS: D5W-AA 4.25% with LYTES 1,000 ML BAG IV SCH (10:15)
[2020-08-02 10:23] LABS: ALT (SGPT) Less than 7 U/L (8-55); AST (SGOT) 16 U/L (5-34); Albumin 2.9 g/dL (3.4-4.8); Alkaline Phosphatase 116 U/L (40-110); Anion Gap 13 mmol/L (10-20); BUN (Urea Nitrogen) 9 mg/dL (8.4-25.7); Bilirubin, Total 0.9 mg/dL (0.2-1.2); Calc. Creatinine Clearance 127 mL/min (70-130); Calcium 10.1 mg/dL (7.8-10.44); Carbon Dioxide 20 mmol/L (23-31); Chloride 106 mmol/L (98-107); Globulin 2.9 g/dL (2.4-3.5); Glucose 103 mg/dL (80-115); Potassium 3.2 mmol/L (3.5-5.1); Protein, Total 5.8 g/dL (5.8-8.1); Sodium 136 mmol/L (136-145)
[2020-08-02] MEDS: Micafungin 100 MG in Sodium Chloride 0.9% 100 ML IVPB SCH (11:31)
[2020-08-02] MEDS ORDERED: Acetaminophen 650 MG Suppository PR SCH (12:45)
[2020-08-03] MEDS: BIOTENE MOUTH SPRAY 44.3 ML PO SCH ×21 (01:22→23:43)
[2020-08-03] MEDS: D5W-AA 4.25% with LYTES 1,000 ML BAG IV SCH ×2 (02:05→23:15)
[2020-08-03] MEDS ORDERED: Potassium Chloride 20 MEQ in Premix Bag 1 BAG IVPB SCH (10:00)
[2020-08-03] MEDS: Nystatin 500,000 UNITS/5 ML UDCUP SSW SCH ×4 (10:14→20:13)
[2020-08-03] MEDS: methylPREDNISolone Sod Succ 40 MG VIAL IVP SCH (10:17)
[2020-08-03 11:25] LABS: #Eosinphils 0.6 thou/uL (0.0-0.7); #Lymphocytes 2.3 thou/uL (1.20-3.40); #Monocytes 0.8 thou/uL (0.11-0.59); #Neutrophils 2.9 thou/uL (1.40-6.50); %Basophils 0.6 % (0.0-1.0); %Lymphocytes 34.7 % (21.0-51.0); %Monocytes 11.9 % (0.0-10.0); %Neutrophils 43.9 % (42.0-75.0); Hemoglobin 9.2 g/dL (14.0-18.0); Mean Corpuscular HGB CONC 32.1 g/dL (32.0-36.0); Mean Corpuscular Hemoglobin 23.7 pg (27.0-31.0); Mean Corpuscular Volume 73.9 fL (78.0-98.0); Mean Platelet Volume 10.2 fL (7.4-10.4); Platelet Count 200 thou/uL (130-400); RBC Distribution Width 15.9 % (11.5-14.5); Red Blood Cell (RBC) Count 3.86 mill/uL (4.70-6.10); White Blood Cell (WBC) Count 6.6 thou/uL (4.8-10.8)
[2020-08-03 11:40] LABS: Anion Gap 13 mmol/L (10-20); BUN (Urea Nitrogen) 16 mg/dL (8.4-25.7); Calc. Creatinine Clearance 125 mL/min (70-130); Calcium 10.1 mg/dL (7.8-10.44); Carbon Dioxide 22 mmol/L (23-31); Chloride 104 mmol/L (98-107); Glucose 96 mg/dL (80-115); Potassium 3.6 mmol/L (3.5-5.1); Sodium 135 mmol/L (136-145)
[2020-08-03] MEDS: Cefepime 1 GM in Sodium Chloride 0.9% 100 ML IVPB SCH (14:36)
[2020-08-03] MEDS: Micafungin 100 MG in Sodium Chloride 0.9% 100 ML IVPB SCH (15:10)
[2020-08-03 15:17] LABS: CSF Source CSF; Clarity Cloudy/Turbid (Clear); Tube # 4
[2020-08-03 15:59] LABS: Eosinophils 2 %; Lymphocytes 26 %; Segmented Neutrophils 70 %
[2020-08-03] MEDS ORDERED: Dextrose 50% Abboject 50 ML SYRINGE SLOW IVP SCH (16:00)
[2020-08-03] MEDS: CEFEPIME HCL IN DEXTROSE 5 % 1 GM in Premix Bag 1 BAG IVPB SCH (22:37)
[2020-08-04] MEDS: BIOTENE MOUTH SPRAY 44.3 ML PO SCH ×22 (00:24→23:13)
[2020-08-04] MEDS: methylPREDNISolone Sod Succ 40 MG VIAL IVP SCH (08:51)
[2020-08-04] MEDS: Carvedilol 3.125 MG TAB PO SCH ×2 (08:52→18:06)
[2020-08-04] MEDS: Nystatin 500,000 UNITS/5 ML UDCUP SSW SCH ×4 (08:52→20:06)
[2020-08-04] MEDS: D5W-AA 4.25% with LYTES 1,000 ML BAG IV SCH ×2 (09:23→20:05)
[2020-08-04] MEDS: Micafungin 100 MG in Sodium Chloride 0.9% 100 ML IVPB SCH (10:43)
[2020-08-04] MEDS: CEFEPIME HCL IN DEXTROSE 5 % 1 GM in Premix Bag 1 BAG IVPB SCH ×2 (11:36→23:13)
[2020-08-05] MEDS: BIOTENE MOUTH SPRAY 44.3 ML PO SCH ×23 (00:28→23:22)
[2020-08-05 05:12] LABS: #Basophils 0.2 thou/uL (0.0-0.2); #Lymphocytes 1.2 thou/uL (1.20-3.40); #Monocytes 0.6 thou/uL (0.11-0.59); #Neutrophils 10.8 thou/uL (1.40-6.50); %Basophils 1.2 % (0.0-1.0); %Lymphocytes 9.1 % (21.0-51.0); %Neutrophils 84.6 % (42.0-75.0); Hemoglobin 7.8 g/dL (14.0-18.0); Mean Corpuscular HGB CONC 32.9 g/dL (32.0-36.0); Mean Corpuscular Hemoglobin 24.3 pg (27.0-31.0); Mean Corpuscular Volume 74.1 fL (78.0-98.0); Mean Platelet Volume 10.1 fL (7.4-10.4); Platelet Count 215 thou/uL (130-400); RBC Distribution Width 16.2 % (11.5-14.5); Red Blood Cell (RBC) Count 3.22 mill/uL (4.70-6.10); White Blood Cell (WBC) Count 12.7 thou/uL (4.8-10.8)
[2020-08-05 05:34] LABS: Anion Gap 11 mmol/L (10-20); BUN (Urea Nitrogen) 37 mg/dL (8.4-25.7); Calc. Creatinine Clearance 120 mL/min (70-130); Calcium 9.9 mg/dL (7.8-10.44); Carbon Dioxide 21 mmol/L (23-31); Chloride 107 mmol/L (98-107); Glucose 140 mg/dL (80-115); Sodium 135 mmol/L (136-145)
[2020-08-05] MEDS: Nystatin 500,000 UNITS/5 ML UDCUP SSW SCH ×5 (10:18→21:48)
[2020-08-05] MEDS: Carvedilol 3.125 MG TAB PO SCH ×3 (10:18→17:37)
[2020-08-05] MEDS: methylPREDNISolone Sod Succ 40 MG VIAL IVP SCH (10:21)
[2020-08-05] MEDS: D5W-AA 4.25% with LYTES 1,000 ML BAG IV SCH ×2 (10:22→20:19)
[2020-08-05] MEDS: CEFEPIME HCL IN DEXTROSE 5 % 1 GM in Premix Bag 1 BAG IVPB SCH ×2 (11:09→23:22)
[2020-08-05] MEDS: Micafungin 100 MG in Sodium Chloride 0.9% 100 ML IVPB SCH (12:20)
[2020-08-05] MEDS ORDERED: Artificial Tear Sol 15 ML BOT EA EYE PRN (19:56)
[2020-08-05 21:12] LABS: HSV 1 - DNA Negative (Negative); HSV 2 - DNA Negative (Negative)
[2020-08-06] MEDS: BIOTENE MOUTH SPRAY 44.3 ML PO SCH ×24 (00:20→22:53)
[2020-08-06 05:08] LABS: #Lymphocytes 1.6 thou/uL (1.20-3.40); #Monocytes 0.8 thou/uL (0.11-0.59); #Neutrophils 8.2 thou/uL (1.40-6.50); %Basophils 0.2 % (0.0-1.0); %Eosinophils 0.1 % (0.0-10.0); %Lymphocytes 15.2 % (21.0-51.0); %Monocytes 7.2 % (0.0-10.0); %Neutrophils 77.3 % (42.0-75.0); Hemoglobin 7.9 g/dL (14.0-18.0); Mean Corpuscular HGB CONC 32.5 g/dL (32.0-36.0); Mean Corpuscular Hemoglobin 24.6 pg (27.0-31.0); Mean Corpuscular Volume 75.5 fL (78.0-98.0); Mean Platelet Volume 9.7 fL (7.4-10.4); Platelet Count 257 thou/uL (130-400); RBC Distribution Width 16.6 % (11.5-14.5); Red Blood Cell (RBC) Count 3.19 mill/uL (4.70-6.10); White Blood Cell (WBC) Count 10.6 thou/uL (4.8-10.8)
[2020-08-06 05:32] LABS: Anion Gap 12 mmol/L (10-20); BUN (Urea Nitrogen) 38 mg/dL (8.4-25.7); Calc. Creatinine Clearance 121 mL/min (70-130); Calcium 9.5 mg/dL (7.8-10.44); Carbon Dioxide 21 mmol/L (23-31); Chloride 106 mmol/L (98-107); Glucose 122 mg/dL (80-115); Potassium 4.1 mmol/L (3.5-5.1); Sodium 135 mmol/L (136-145)
[2020-08-06] MEDS: D5W-AA 4.25% with LYTES 1,000 ML BAG IV SCH ×2 (05:44→16:38)
[2020-08-06] MEDS: Nystatin 500,000 UNITS/5 ML UDCUP SSW SCH ×4 (08:32→20:34)
[2020-08-06] MEDS: methylPREDNISolone Sod Succ 40 MG VIAL IVP SCH (08:32)
[2020-08-06] MEDS: Carvedilol 3.125 MG TAB PO SCH ×2 (08:43→17:35)
[2020-08-06] MEDS: CEFEPIME HCL IN DEXTROSE 5 % 1 GM in Premix Bag 1 BAG IVPB SCH ×2 (11:31→22:53)
[2020-08-06] MEDS: Micafungin 100 MG in Sodium Chloride 0.9% 100 ML IVPB SCH (11:40)
[2020-08-06] MEDS ORDERED: Enoxaparin Sodium 40 MG/0.4 ML SYRINGE SC SCH (12:00)
[2020-08-07] MEDS: BIOTENE MOUTH SPRAY 44.3 ML PO SCH ×24 (00:34→22:49)
[2020-08-07] MEDS: D5W-AA 4.25% with LYTES 1,000 ML BAG IV SCH ×3 (01:16→20:56)
[2020-08-07] MEDS: Carvedilol 3.125 MG TAB PO SCH ×2 (08:57→16:32)
[2020-08-07] MEDS: Nystatin 500,000 UNITS/5 ML UDCUP SSW SCH ×4 (08:57→20:57)
[2020-08-07] MEDS: Enoxaparin Sodium 40 MG/0.4 ML SYRINGE SC SCH (08:57)
[2020-08-07] MEDS: CEFEPIME HCL IN DEXTROSE 5 % 1 GM in Premix Bag 1 BAG IVPB SCH ×2 (11:46→22:49)
[2020-08-08] MEDS: BIOTENE MOUTH SPRAY 44.3 ML PO SCH ×23 (00:02→23:55)
[2020-08-08 05:19] LABS: Anion Gap 14 mmol/L (10-20); BUN (Urea Nitrogen) 41 mg/dL (8.4-25.7); Calc. Creatinine Clearance 114 mL/min (70-130); Calcium 9.1 mg/dL (7.8-10.44); Carbon Dioxide 19 mmol/L (23-31); Chloride 102 mmol/L (98-107); Glucose 86 mg/dL (80-115); Potassium 4.7 mmol/L (3.5-5.1); Sodium 130 mmol/L (136-145)
[2020-08-08] MEDS: D5W-AA 4.25% with LYTES 1,000 ML BAG IV SCH ×2 (05:32→15:53)
[2020-08-08 06:09] LABS: Band 1 % (5-11); Eosinophils 2 % (0-10); Hemoglobin 12.3 g/dL (14.0-18.0); Hypochromia SLIGHT = 6-15 cells (100X) (0-5/hpf); Lymphocytes 47 % (21-51); MDiff Complete? YES; Mean Corpuscular Hemoglobin 24.2 pg (27.0-31.0); Mean Corpuscular Volume 75.4 fL (78.0-98.0); Monocytes 5 % (0-10); Neutrophil 45 % (42-75); Platelet Count 529 thou/uL (130-400); Platelet Morphology Comment Appears Increased; RBC Distribution Width 17.4 % (11.5-14.5); Red Blood Cell (RBC) Count 5.09 mill/uL (4.70-6.10); White Blood Cell (WBC) Count 17.3 thou/uL (4.8-10.8)
[2020-08-08] MEDS: Nystatin 500,000 UNITS/5 ML UDCUP SSW SCH ×4 (08:17→20:02)
[2020-08-08] MEDS: Carvedilol 3.125 MG TAB PO SCH ×2 (08:18→16:04)
[2020-08-08] MEDS: Enoxaparin Sodium 40 MG/0.4 ML SYRINGE SC SCH (08:18)
[2020-08-08] MEDS: CEFEPIME HCL IN DEXTROSE 5 % 1 GM in Premix Bag 1 BAG IVPB SCH (11:16)
[2020-08-09] MEDS: BIOTENE MOUTH SPRAY 44.3 ML PO SCH ×14 (01:42→15:44)
[2020-08-09] MEDS: D5W-AA 4.25% with LYTES 1,000 ML BAG IV SCH ×3 (01:56→21:37)
[2020-08-09] MEDS ORDERED: Dextrose 50% Abboject 50 ML SYRINGE ONE ×2 (02:46→20:58)
[2020-08-09] MEDS ORDERED: Dextrose 5% in Water 1,000 ML IV PRN (02:47)
[2020-08-09] MEDS: Nystatin 500,000 UNITS/5 ML UDCUP SSW SCH ×4 (08:58→21:10)
[2020-08-09] MEDS: Enoxaparin Sodium 40 MG/0.4 ML SYRINGE SC SCH (08:58)
[2020-08-09] MEDS: Allopurinol 100 MG TAB PO SCH (08:59)
[2020-08-09] MEDS: Carvedilol 3.125 MG TAB PO SCH ×2 (09:00→17:13)
[2020-08-09] MEDS: Dextrose 50% Abboject 50 ML SYRINGE SLOW IVP PRN ×2 (18:49→23:55)
[2020-08-09 19:21] LABS: Anion Gap 19 mmol/L (10-20); BUN (Urea Nitrogen) 46 mg/dL (8.4-25.7); Calc. Creatinine Clearance 103 mL/min (70-130); Calcium 9.2 mg/dL (7.8-10.44); Carbon Dioxide 11 mmol/L (23-31); Chloride 103 mmol/L (98-107); Potassium 5.2 mmol/L (3.5-5.1); Sodium 128 mmol/L (136-145)
[2020-08-09 19:35] LABS: Glucose 51 mg/dL (80-115)
[2020-08-09 21:50] LABS: Anion Gap 14 mmol/L (10-20); BUN (Urea Nitrogen) 46 mg/dL (8.4-25.7); Calc. Creatinine Clearance 104 mL/min (70-130); Calcium 8.6 mg/dL (7.8-10.44); Carbon Dioxide 17 mmol/L (23-31); Chloride 101 mmol/L (98-107); Glucose 140 mg/dL (80-115); Potassium 4.6 mmol/L (3.5-5.1); Sodium 127 mmol/L (136-145)
[2020-08-09] MEDS: Dextrose 10% in Water 1,000 ML IV SCH (22:50)
[2020-08-10] MEDS: Dextrose 50% Abboject 50 ML SYRINGE SLOW IVP PRN (02:03)
[2020-08-10 04:59] LABS: #Eosinphils 1.7 thou/uL (0.0-0.7); #Lymphocytes 2.7 thou/uL (1.20-3.40); #Neutrophils 4.6 thou/uL (1.40-6.50); %Basophils 0.2 % (0.0-1.0); %Eosinophils 16.6 % (0.0-10.0); %Lymphocytes 27.4 % (21.0-51.0); %Monocytes 9.6 % (0.0-10.0); %Neutrophils 46.3 % (42.0-75.0); Hemoglobin 10.2 g/dL (14.0-18.0); Mean Corpuscular HGB CONC 33.1 g/dL (32.0-36.0); Mean Corpuscular Hemoglobin 25.4 pg (27.0-31.0); Mean Corpuscular Volume 76.7 fL (78.0-98.0); Platelet Count 392 thou/uL (130-400); RBC Distribution Width 17.3 % (11.5-14.5); Red Blood Cell (RBC) Count 4.03 mill/uL (4.70-6.10); White Blood Cell (WBC) Count 9.9 thou/uL (4.8-10.8)
[2020-08-10 05:21] LABS: Anion Gap 13 mmol/L (10-20); BUN (Urea Nitrogen) 44 mg/dL (8.4-25.7); Calc. Creatinine Clearance 107 mL/min (70-130); Calcium 9.1 mg/dL (7.8-10.44); Carbon Dioxide 21 mmol/L (23-31); Chloride 99 mmol/L (98-107); Glucose 111 mg/dL (80-115); Potassium 4.7 mmol/L (3.5-5.1); Sodium 128 mmol/L (136-145)
[2020-08-10] MEDS: Enoxaparin Sodium 40 MG/0.4 ML SYRINGE SC SCH (07:58)
[2020-08-10] MEDS: D5W-AA 4.25% with LYTES 1,000 ML BAG IV SCH (07:58)
[2020-08-10] MEDS: Nystatin 500,000 UNITS/5 ML UDCUP SSW SCH ×4 (07:58→22:30)
[2020-08-10] MEDS: Allopurinol 100 MG TAB PO SCH (07:59)
[2020-08-10] MEDS: Carvedilol 3.125 MG TAB PO SCH ×2 (08:58→17:56)
[2020-08-10] MEDS: Dextrose 10% in Water 1,000 ML IV SCH ×2 (13:12→23:15)
[2020-08-10] MEDS ORDERED: Acetaminophen 325 MG TAB PO SCH (13:45)
[2020-08-10] MEDS: Morphine 2 MG/ML VIAL SLOW IVP PRN (23:01)
[2020-08-11] MEDS: Morphine 2 MG/ML VIAL SLOW IVP PRN ×4 (02:31→20:14)
[2020-08-11 06:46] LABS: Anion Gap 16 mmol/L (10-20); BUN (Urea Nitrogen) 33 mg/dL (8.4-25.7); Calc. Creatinine Clearance 103 mL/min (70-130); Calcium 9.1 mg/dL (7.8-10.44); Carbon Dioxide 18 mmol/L (23-31); Chloride 96 mmol/L (98-107); Glucose 80 mg/dL (80-115); Sodium 125 mmol/L (136-145)
[2020-08-11] MEDS: Allopurinol 100 MG TAB PO SCH (08:31)
[2020-08-11] MEDS: Enoxaparin Sodium 40 MG/0.4 ML SYRINGE SC SCH (08:32)
[2020-08-11] MEDS: Carvedilol 3.125 MG TAB PO SCH ×2 (08:32→17:04)
[2020-08-11] MEDS: Nystatin 500,000 UNITS/5 ML UDCUP SSW SCH ×4 (08:47→20:13)
[2020-08-12] MEDS: Morphine 2 MG/ML VIAL SLOW IVP PRN (02:53)
[2020-08-12] MEDS: Nystatin 500,000 UNITS/5 ML UDCUP SSW SCH ×4 (08:07→21:29)
[2020-08-12] MEDS: Allopurinol 100 MG TAB PO SCH (08:07)
[2020-08-12] MEDS: Enoxaparin Sodium 40 MG/0.4 ML SYRINGE SC SCH (08:07)
[2020-08-12] MEDS: Carvedilol 3.125 MG TAB PO SCH ×2 (08:07→17:08)
[2020-08-12 09:15] LABS: Anion Gap 16 mmol/L (10-20); BUN (Urea Nitrogen) 32 mg/dL (8.4-25.7); Calc. Creatinine Clearance 79 mL/min (70-130); Carbon Dioxide 20 mmol/L (23-31); Chloride 98 mmol/L (98-107); Glucose 76 mg/dL (80-115); Potassium 4.9 mmol/L (3.5-5.1); Sodium 129 mmol/L (136-145)
[2020-08-12] MEDS: Cyclobenzaprine 10 MG TAB PO PRN (18:15)
[2020-08-12] MEDS: Lidocaine 5% Patch TD SCH (18:15)
[2020-08-12] MEDS: HYDROcodone/Acetaminophen 5/325 mg Tablet PO PRN (21:28)
[2020-08-13] MEDS: HYDROcodone/Acetaminophen 5/325 mg Tablet PO PRN ×4 (04:33→21:58)
[2020-08-13] MEDS: Cyclobenzaprine 10 MG TAB PO PRN (04:33)
[2020-08-13 05:50] LABS: Anion Gap 18 mmol/L (10-20); BUN (Urea Nitrogen) 35 mg/dL (8.4-25.7); Calc. Creatinine Clearance 64 mL/min (70-130); Calcium 9.1 mg/dL (7.8-10.44); Carbon Dioxide 17 mmol/L (23-31); Chloride 98 mmol/L (98-107); Glucose 93 mg/dL (80-115); Potassium 4.4 mmol/L (3.5-5.1); Sodium 129 mmol/L (136-145)
[2020-08-13] MEDS: Transdermal Patch Removal TOP SCH (05:51)
[2020-08-13] MEDS: Nystatin 500,000 UNITS/5 ML UDCUP SSW SCH ×4 (08:56→21:44)
[2020-08-13] MEDS: Enoxaparin Sodium 40 MG/0.4 ML SYRINGE SC SCH (08:56)
[2020-08-13] MEDS: Allopurinol 100 MG TAB PO SCH (08:56)
[2020-08-13] MEDS: Sodium Chloride 0.9% 1,000 ML IV SCH ×2 (11:26→21:45)
[2020-08-13 12:57] VITALS: BMI 24.0
[2020-08-13] MEDS: Lidocaine 5% Patch TD SCH (17:12)
[2020-08-13] MEDS: Megestrol Acetate 40 MG TAB PO SCH (17:12)
[2020-08-14] MEDS: Transdermal Patch Removal TOP SCH (05:22)
[2020-08-14 05:39] LABS: Anion Gap 12 mmol/L (10-20); BUN (Urea Nitrogen) 34 mg/dL (8.4-25.7); Calc. Creatinine Clearance 71 mL/min (70-130); Calcium 8.8 mg/dL (7.8-10.44); Carbon Dioxide 22 mmol/L (23-31); Chloride 104 mmol/L (98-107); Glucose 101 mg/dL (80-115); Potassium 4.3 mmol/L (3.5-5.1); Sodium 134 mmol/L (136-145)
[2020-08-14] MEDS: Nystatin 500,000 UNITS/5 ML UDCUP SSW SCH ×4 (11:10→20:54)
[2020-08-14] MEDS: Megestrol Acetate 40 MG TAB PO SCH (11:11)
[2020-08-14] MEDS: Allopurinol 100 MG TAB PO SCH (11:11)
[2020-08-14] MEDS: Enoxaparin Sodium 40 MG/0.4 ML SYRINGE SC SCH (11:11)
[2020-08-14] MEDS: HYDROcodone/Acetaminophen 5/325 mg Tablet PO PRN (18:40)
[2020-08-14] MEDS: Lidocaine 5% Patch TD SCH (18:43)
[2020-08-14] MEDS: Morphine 2 MG/ML VIAL SLOW IVP PRN (20:53)
[2020-08-15 08:03] VITALS: BP 107/58; TEMP 98.3
[2020-08-15] MEDS: Megestrol Acetate 40 MG TAB PO SCH (08:29)
[2020-08-15] MEDS: Allopurinol 100 MG TAB PO SCH (08:29)
[2020-08-15] MEDS: Nystatin 500,000 UNITS/5 ML UDCUP SSW SCH ×2 (08:30→12:18)
[2020-08-15] MEDS: Enoxaparin Sodium 40 MG/0.4 ML SYRINGE SC SCH (08:30)
[2020-08-15] MEDS: Transdermal Patch Removal TOP SCH (08:30)
== END 2020-08-15 15:22 | DRG 91 ==
LOC: ERS 09:49 → ERHOLD 14:10 → 2NO 16:54 → T4-A 08-10 15:21 → T4-B 08-13 23:03
PROVIDERS: ADMIT Internal Medicine; ATTEND Internal Medicine
PROC: 009U3ZX Drainage of Spinal Canal, Percutaneous Approach, Diagnostic (ICD-10-PCS; principal; 2020-08-03)
PROC: B01B1ZZ Fluoroscopy of Spinal Cord using Low Osmolar Contrast (ICD-10-PCS; 2020-08-03)
DX: G92 Toxic encephalopathy (principal); I21.A1 Myocardial infarction type 2; C34.12 Malignant neoplasm of upper lobe, left bronchus or lung; I13.0 Hypertensive heart and chronic kidney disease with heart failure and stage 1 through stage 4 chronic kidney disease, or unspecified chronic kidney disease; I50.22 Chronic systolic (congestive) heart failure; E87.1 Hypo-osmolality and hyponatremia; E44.0 Moderate protein-calorie malnutrition; E16.2 Hypoglycemia, unspecified; J44.9 Chronic obstructive pulmonary disease, unspecified; R59.0 Localized enlarged lymph nodes; G89.3 Neoplasm related pain (acute) (chronic); B37.9 Candidiasis, unspecified; F32.9 Major depressive disorder, single episode, unspecified; D63.0 Anemia in neoplastic disease; G47.33 Obstructive sleep apnea (adult) (pediatric); K21.9 Gastro-esophageal reflux disease without esophagitis; D63.1 Anemia in chronic kidney disease; M10.9 Gout, unspecified; I34.0 Nonrheumatic mitral (valve) insufficiency; M54.9 Dorsalgia, unspecified; R00.0 Tachycardia, unspecified; R13.10 Dysphagia, unspecified; T50.995A Adverse effect of other drugs, medicaments and biological substances, initial encounter; Z20.822 Contact with and (suspected) exposure to COVID-19; N18.30 Chronic kidney disease, stage 3 unspecified; I95.9 Hypotension, unspecified; Z92.21 Personal history of antineoplastic chemotherapy; Z87.891 Personal history of nicotine dependence; Z98.84 Bariatric surgery status; Z98.890 Other specified postprocedural states; Z79.899 Other long term (current) drug therapy; Z86.010 Personal history of colon polyps; Z68.24 Body mass index [BMI] 24.0-24.9, adult
CPT/HCPCS: 36415; 36416; 36600; 51702; 62270; 70450; 70551; 71045; 74230; 80048; 80053; 81003; 82550; 82553; 82805; 82945; 83525; 83605; 83735; 83880; 84443; 84484; 84681; 85025; 85027; 85060; 87040; 87070; 87086; 87205; 87529; 89051; 93005; 93010; 93306; 94640; 94760; 95816; 95819; 95957; 96365; 96366; 96367; 96375; 96376; J0692; J1650; J2248; J2270; J2920; J3370; J3475; J3480; J3490; J7620; S0179

== ENCOUNTER 2020-09-28 11:00 | Day surgery (SDC) | payer MEDICARE ==
[~2020-09-28 11:00] MED LIST changes: +[UNRECOGNIZED DRUG - REMARK] IVPB SCH
[2020-09-28 15:47] VITALS: BP 102/61; TEMP 98.1
== END 2020-09-28 15:48 | disposition home or self-care (01) ==
LOC: ONC/OP 11:00
PROVIDERS: ATTEND Internal Medicine Medical Oncology
DX: Z51.12 Encounter for antineoplastic immunotherapy (principal); C34.12 Malignant neoplasm of upper lobe, left bronchus or lung; D51.8 Other vitamin B12 deficiency anemias; D50.8 Other iron deficiency anemias
CPT/HCPCS: 96413

== ENCOUNTER 2020-10-01 17:09 | Emergency (ER) | payer MEDICARE ==
[~2020-10-01 17:09] MED LIST changes: +Magnevist 469MG/ML 20 ML VIAL ONE; -Pembrolizumab 200 MG in Sodium Chloride 0.9% 250 ML 250 ML IV SCH; -[UNRECOGNIZED DRUG - REMARK] IVPB SCH
[2020-10-01 18:23] LABS: #Basophils 0.1 thou/uL (0.0-0.2); #Eosinphils 0.5 thou/uL (0.0-0.7); #Lymphocytes 2.5 thou/uL (1.20-3.40); #Monocytes 1.1 thou/uL (0.11-0.59); #Neutrophils 3.7 thou/uL (1.40-6.50); %Basophils 0.6 % (0.0-1.0); %Eosinophils 6.8 % (0.0-10.0); %Monocytes 13.8 % (0.0-10.0); %Neutrophils 46.8 % (42.0-75.0); Hemoglobin 9.2 g/dL (14.0-18.0); Mean Corpuscular HGB CONC 34.5 g/dL (32.0-36.0); Mean Corpuscular Hemoglobin 25.4 pg (27.0-31.0); Mean Corpuscular Volume 73.7 fL (78.0-98.0); Mean Platelet Volume 8.3 fL (7.4-10.4); Platelet Count 293 thou/uL (130-400); RBC Distribution Width 16.1 % (11.5-14.5); Red Blood Cell (RBC) Count 3.62 mill/uL (4.70-6.10); White Blood Cell (WBC) Count 7.8 thou/uL (4.8-10.8)
[2020-10-01 18:37] LABS: Anisocytosis SLIGHT = 6-15 cells (100X) (0-5/hpf); Hypochromia SLIGHT = 6-15 cells (100X) (0-5/hpf); MDiff Complete? YES; Microcytosis SLIGHT = 6-15 cells (100X) (0-5/hpf); Ovalocytes SLIGHT = 2-5 cells (100X) (0-1/hpf); Platelet Morphology Comment Appears Adequate; Polychromasia SLIGHT = 2-3 cells (100X) (0-2/hpf)
[2020-10-01 18:45] LABS: ALT (SGPT) 9 U/L (8-55); AST (SGOT) 24 U/L (5-34); Albumin 3.9 g/dL (3.4-4.8); Alkaline Phosphatase 109 U/L (40-110); Anion Gap 14 mmol/L (10-20); BUN (Urea Nitrogen) 41 mg/dL (8.4-25.7); Bilirubin, Total 0.5 mg/dL (0.2-1.2); Calc. Creatinine Clearance 0 mL/min (70-130); Calcium 10.5 mg/dL (7.8-10.44); Carbon Dioxide 17 mmol/L (23-31); Chloride 107 mmol/L (98-107); Globulin 3.5 g/dL (2.4-3.5); Glucose 60 mg/dL (80-115); Lipase 20 U/L (8-78); Potassium 3.8 mmol/L (3.5-5.1); Protein, Total 7.4 g/dL (5.8-8.1); Sodium 134 mmol/L (136-145)
[2020-10-01 19:15] LABS: Bilirubin Negative (Negative); Blood, Urine Negative (Negative); Clarity Clear (Clear); Glucose, Urine (Dipstick) Normal (Negative); Ketone, Urine Negative (Negative); Leukocyte Negative Leu/uL (Negative); Nitrite Negative (Negative); Protein, Urine (Dipstick) Negative (Neg-Trace); Specific Gravity, Urine 1.016 (1.002-1.036); Urobilinogen Normal mg/dL (Less than 2); pH, Urine 5.5 (5.0-9.0)
[2020-10-01 19:42] LABS: Acetaminophen Less than 6.0 mcg/mL (10.0-30.0); Alcohol Less than 10 mg/dL (Less than 10); Salicylate Less than 8.0 mg/dL (15.0-30.0)
[2020-10-01 21:00] LABS: Amphetamine Detected (NotDetected); Barbiturates Screen Not Detected (NotDetected); Benzodiazepine Screen Not Detected (NotDetected); Cocaine Metabolite Screen Not Detected (NotDetected); Methadone Not Detected (NotDetected); Methamphetamine Detected (NotDetected); Opiate Screen Detected (NotDetected); Oxycodone Screen Not Detected (NotDetected); Phencyclidine (PCP) Not Detected (NotDetected); THC/Cannabinoid Screen Not Detected (NotDetected); Tricyclic Screen Not Detected (NotDetected)
[2020-10-01] MEDS ORDERED: Fentanyl 100 MCG/2 ML VIAL ONE (21:53)
[2020-10-01] MEDS ORDERED: Lorazepam 2 MG/ML VIAL ONE (21:53)
[2020-10-01] MEDS ORDERED: Ketorolac Tromethamine 30 MG/ML VIAL ONE (21:53)
[2020-10-02] MEDS ORDERED: Lorazepam 2 MG/ML VIAL ONE ×2 (00:41→00:56)
== END 2020-10-02 02:37 | disposition home or self-care (01) ==
LOC: ERS 17:09
DX: M54.5 Low back pain (principal); Z79.891 Long term (current) use of opiate analgesic; M10.9 Gout, unspecified; I10 Essential (primary) hypertension; J44.9 Chronic obstructive pulmonary disease, unspecified; Z87.891 Personal history of nicotine dependence
CPT/HCPCS: 36415; 70450; 72158; 72192; 80053; 80306; 80307; 81003; 83690; 85025; 85652; 86140; 96374; 96375; 96376; A9579; J1885; J2060; J3010

== ENCOUNTER 2020-10-24 12:51 | Outpatient (CLI) | payer MEDICARE ==
[2020-10-24 14:39] LABS: #Eosinphils 1.2 10x3/uL (0.0-0.5); #Monocytes 0.5 10x3/uL (0.0-1.1); #Neutrophils 3.8 10x3/uL (1.5-8.4); %Basophils 0.5 % (0.0-2.0); %Eosinophils 15.8 % (0.0-6.0); %Lymphocytes 25.9 % (18.0-47.0); %Monocytes 6.3 % (0.0-10.0); Mean Corpuscular HGB CONC 30.3 g/dL (32.0-36.0); Mean Corpuscular Hemoglobin 24.7 pg (27.0-33.0); Mean Corpuscular Volume 81.5 fl (81.2-95.1); Mean Platelet Volume 10.2 fl (7.4-10.4); Platelet Count 212 10x3/uL (150-450); RBC Distribution Width 19.1 % (11.5-14.5); Red Blood Cell (RBC) Count 4.05 10x6/uL (4.32-5.72); White Blood Cell (WBC) Count 7.5 10x3/uL (3.5-10.5)
[2020-10-24 14:45] LABS: ALT (SGPT) 6 U/L (8-55); AST (SGOT) 11 U/L (5-34); Albumin 3.9 g/dL (3.4-4.8); Alkaline Phosphatase 79 U/L (40-110); Anion Gap 14 mmol/L (10-20); BUN (Urea Nitrogen) 19 mg/dL (8.4-25.7); Bilirubin, Total 0.3 mg/dL (0.2-1.2); Calc. Creatinine Clearance 0 mL/min (70-130); Calcium 9.6 mg/dL (7.8-10.44); Carbon Dioxide 23 mmol/L (23-31); Chloride 108 mmol/L (98-107); Globulin 2.8 g/dL (2.4-3.5); Glucose 76 mg/dL (80-115); Potassium 4.6 mmol/L (3.5-5.1); Protein, Total 6.7 g/dL (5.8-8.1); Sodium 140 mmol/L (136-145)
[2020-10-25 11:47] LABS: SARS-CoV-2 PCR by NAA DETECTED (NotDetected)
== END 2020-10-24 12:52 | disposition home or self-care (01) ==
LOC: LABBT 12:51
PROVIDERS: ATTEND Internal Medicine Cardiovascular Disease
DX: U07.1 COVID-19 (principal); Z01.818 Encounter for other preprocedural examination; I21.4 Non-ST elevation (NSTEMI) myocardial infarction; I42.9 Cardiomyopathy, unspecified
CPT/HCPCS: 80053; 85025; 93005; U0003; U0005; 93010

== ENCOUNTER 2020-11-15 12:19 | Day surgery (SDC) | payer MEDICARE ==
[~2020-11-15 12:19] MED LIST changes: -Magnevist 469MG/ML 20 ML VIAL ONE; +Pembrolizumab 200 MG in Sodium Chloride 0.9% 250 ML 250 ML IVPB SCH
[2020-11-15 12:37] VITALS: BP 140/83
== END 2020-11-15 13:42 | disposition home or self-care (01) ==
LOC: ONC/OP 12:19
PROVIDERS: ATTEND Internal Medicine Medical Oncology
DX: Z51.12 Encounter for antineoplastic immunotherapy (principal); C34.12 Malignant neoplasm of upper lobe, left bronchus or lung; D51.8 Other vitamin B12 deficiency anemias; D50.8 Other iron deficiency anemias
CPT/HCPCS: 96413

== ENCOUNTER 2020-12-06 13:26 | Day surgery (SDC) | payer MEDICARE ==
[2020-12-06 14:12] VITALS: BP 121/77; TEMP 98.1
== END 2020-12-06 15:14 | disposition home or self-care (01) ==
LOC: ONC/OP 13:26
PROVIDERS: ATTEND Internal Medicine Medical Oncology
DX: Z51.12 Encounter for antineoplastic immunotherapy (principal); C34.12 Malignant neoplasm of upper lobe, left bronchus or lung; D51.8 Other vitamin B12 deficiency anemias; D50.8 Other iron deficiency anemias
CPT/HCPCS: 96413; J7050; J9271

== ENCOUNTER → 2020-12-10 | Day surgery (SDC) | payer MEDICARE ==
[2020-12-07 10:37] VITALS: BMI 24.4
[~2020-12-10] MED LIST changes: +Fentanyl 100 MCG/2 ML VIAL ONE; +Heparin 10,000 UNITS/ 10 ML VIAL ONE; +Lidocaine 1% (PF) 30 ML VIAL ONE; +Midazolam HCl 2 mg/2 ml Vial ONE; -Pembrolizumab 200 MG in Sodium Chloride 0.9% 250 ML 250 ML IVPB SCH; +Protamine Sulfate 50 MG/5 ML VIAL ONE
[2020-12-10 07:13] LABS: #Basophils 0.1 thou/uL (0.0-0.2); #Eosinphils 0.3 thou/uL (0.0-0.7); #Lymphocytes 3.8 thou/uL (1.20-3.40); #Monocytes 0.9 thou/uL (0.11-0.59); #Neutrophils 4.4 thou/uL (1.40-6.50); %Basophils 1.2 % (0.0-1.0); %Eosinophils 3.6 % (0.0-10.0); %Lymphocytes 39.9 % (21.0-51.0); %Monocytes 9.1 % (0.0-10.0); %Neutrophils 46.2 % (42.0-75.0); Hemoglobin 10.1 g/dL (14.0-18.0); Mean Corpuscular HGB CONC 34.4 g/dL (32.0-36.0); Mean Corpuscular Hemoglobin 27.5 pg (27.0-31.0); Mean Platelet Volume 8.6 fL (7.4-10.4); Platelet Count 234 thou/uL (130-400); Red Blood Cell (RBC) Count 3.66 mill/uL (4.70-6.10); White Blood Cell (WBC) Count 9.6 thou/uL (4.8-10.8)
[2020-12-10 07:32] LABS: ALT (SGPT) 7 U/L (8-55); AST (SGOT) 13 U/L (5-34); Albumin 4.3 g/dL (3.4-4.8); Alkaline Phosphatase 82 U/L (40-110); Anion Gap 11 mmol/L (10-20); BUN (Urea Nitrogen) 20 mg/dL (8.4-25.7); Bilirubin, Total 0.7 mg/dL (0.2-1.2); Calc. Creatinine Clearance 82 mL/min (70-130); Calcium 9.8 mg/dL (7.8-10.44); Carbon Dioxide 24 mmol/L (23-31); Chloride 105 mmol/L (98-107); Globulin 2.7 g/dL (2.4-3.5); Glucose 72 mg/dL (80-115); Potassium 3.8 mmol/L (3.5-5.1); Sodium 136 mmol/L (136-145)
== END ==
LOC: SDC 06:21
PROVIDERS: ATTEND Internal Medicine Cardiovascular Disease
PROC: 4A023N7 Measurement of Cardiac Sampling and Pressure, Left Heart, Percutaneous Approach (ICD-10-PCS; principal; 2020-12-10)
PROC: B2111ZZ Fluoroscopy of Multiple Coronary Arteries using Low Osmolar Contrast (ICD-10-PCS; 2020-12-10)
DX: I25.2 Old myocardial infarction (principal); I10 Essential (primary) hypertension; Z79.82 Long term (current) use of aspirin; Z79.899 Other long term (current) drug therapy
CPT/HCPCS: 36415; 80053; 85025; 85347; 93460; 99152; 99153; J1644; J2001; J2250; J2720; J3010

== ENCOUNTER 2021-01-01 08:30 | Outpatient (CLI) | payer MEDICARE | END 2021-01-01 08:31 | disposition home or self-care (01) | LOC: PET 08:30 | PROVIDERS: ATTEND Radiology Radiation Oncology | DX: C34.12 Malignant neoplasm of upper lobe, left bronchus or lung (principal) | CPT/HCPCS: 78815; A9552 ==

== ENCOUNTER 2021-01-02 11:20 | Day surgery (SDC) | payer MEDICARE ==
[~2021-01-02 11:20] MED LIST changes: -Fentanyl 100 MCG/2 ML VIAL ONE; -Heparin 10,000 UNITS/ 10 ML VIAL ONE; -Lidocaine 1% (PF) 30 ML VIAL ONE; -Midazolam HCl 2 mg/2 ml Vial ONE; +Pembrolizumab 200 MG in Sodium Chloride 0.9% 250 ML 250 ML IV SCH; -Protamine Sulfate 50 MG/5 ML VIAL ONE
[2021-01-02] MEDS ORDERED: Sodium Chloride 0.9% 20 ML ONE (13:11)
[2021-01-02 13:16] VITALS: BP 168/91; TEMP 97.8
== END 2021-01-02 14:00 | disposition home or self-care (01) ==
LOC: ONC/OP 11:20
PROVIDERS: ATTEND Internal Medicine Medical Oncology
DX: Z51.12 Encounter for antineoplastic immunotherapy (principal); C34.12 Malignant neoplasm of upper lobe, left bronchus or lung; D51.8 Other vitamin B12 deficiency anemias; D50.8 Other iron deficiency anemias
CPT/HCPCS: 96413

== ENCOUNTER 2021-01-24 12:59 | Day surgery (SDC) | payer MEDICARE ==
[2021-01-24] MEDS ORDERED: Sodium Chloride 0.9% 10 ML ONE (13:06)
[2021-01-24 14:39] VITALS: BP 133/85; TEMP 97.7
[2021-01-24] MEDS ORDERED: Prevnar 13-Val Conj/PF 0.5 ML SYRINGE IM ONE (14:45)
== END 2021-01-24 14:41 | disposition home or self-care (01) ==
LOC: ONC/OP 12:59
PROVIDERS: ATTEND Internal Medicine Medical Oncology
DX: Z51.12 Encounter for antineoplastic immunotherapy (principal); C34.12 Malignant neoplasm of upper lobe, left bronchus or lung; D51.8 Other vitamin B12 deficiency anemias; D50.8 Other iron deficiency anemias
CPT/HCPCS: 96413

== ENCOUNTER 2021-03-05 14:26 | Day surgery (SDC) | payer MEDICARE ==
[2021-03-05] MEDS ORDERED: Sodium Chloride 0.9% 10 ML ONE (14:28)
[2021-03-05 14:51] VITALS: BP 131/78; TEMP 98.2
== END 2021-03-05 15:15 | disposition home or self-care (01) ==
LOC: ONC/OP 14:26
PROVIDERS: ATTEND Internal Medicine Medical Oncology
DX: Z51.12 Encounter for antineoplastic immunotherapy (principal); C34.12 Malignant neoplasm of upper lobe, left bronchus or lung; D51.8 Other vitamin B12 deficiency anemias; D50.8 Other iron deficiency anemias
CPT/HCPCS: 96413

== ENCOUNTER 2021-05-15 08:40 | Emergency (ER) | payer MEDICARE ==
[2021-05-15] MEDS ORDERED: Bacitracin 1 PK ONE (09:19)
== END 2021-05-15 09:30 | disposition home or self-care (01) ==
LOC: ERS 08:40
DX: L89.152 Pressure ulcer of sacral region, stage 2 (principal); I10 Essential (primary) hypertension; J44.9 Chronic obstructive pulmonary disease, unspecified; M10.9 Gout, unspecified; Z85.118 Personal history of other malignant neoplasm of bronchus and lung; Z87.891 Personal history of nicotine dependence
CPT/HCPCS: 99283

== ENCOUNTER 2021-06-03 11:05 | Outpatient (CLI) | payer MEDICARE | END 2021-06-03 11:06 | disposition home or self-care (01) | LOC: CT 11:05 | PROVIDERS: ATTEND Internal Medicine Medical Oncology | DX: C34.12 Malignant neoplasm of upper lobe, left bronchus or lung (principal); K80.20 Calculus of gallbladder without cholecystitis without obstruction; K44.9 Diaphragmatic hernia without obstruction or gangrene; K22.89 Other specified disease of esophagus; J98.4 Other disorders of lung; Z98.890 Other specified postprocedural states; Z92.3 Personal history of irradiation | CPT/HCPCS: 71260 ==

== ENCOUNTER 2021-06-19 13:59 | Day surgery (SDC) | payer MEDICARE ==
[2021-06-19 14:36] VITALS: BP 151/92; TEMP 98.1
== END 2021-06-19 15:13 | disposition home or self-care (01) ==
LOC: ONC/OP 13:59
PROVIDERS: ATTEND Internal Medicine Medical Oncology
DX: Z51.12 Encounter for antineoplastic immunotherapy (principal); C34.12 Malignant neoplasm of upper lobe, left bronchus or lung; D51.8 Other vitamin B12 deficiency anemias; D50.8 Other iron deficiency anemias
CPT/HCPCS: 96365; J7050; J9271

== ENCOUNTER 2021-07-10 14:26 | Day surgery (SDC) | payer MEDICARE ==
[2021-07-10] MEDS ORDERED: Pembrolizumab 200 MG in Sodium Chloride 0.9% 250 ML 250 ML IV SCH (14:30)
[2021-07-10 14:48] VITALS: BP 132/87; TEMP 98.2
== END 2021-07-10 15:49 | disposition home or self-care (01) ==
LOC: ONC/OP 14:26
PROVIDERS: ATTEND Internal Medicine Medical Oncology
DX: Z51.12 Encounter for antineoplastic immunotherapy (principal); C34.12 Malignant neoplasm of upper lobe, left bronchus or lung; D51.8 Other vitamin B12 deficiency anemias; D50.8 Other iron deficiency anemias
CPT/HCPCS: 96413

== ENCOUNTER 2021-07-31 15:14 | Day surgery (SDC) | payer MEDICARE ==
[2021-07-31 15:42] VITALS: BP 109/79; TEMP 97.9
== END 2021-07-31 16:24 | disposition home or self-care (01) ==
LOC: ONC/OP 15:14
PROVIDERS: ATTEND Internal Medicine Medical Oncology
DX: Z51.12 Encounter for antineoplastic immunotherapy (principal); C34.12 Malignant neoplasm of upper lobe, left bronchus or lung; D51.8 Other vitamin B12 deficiency anemias; D50.8 Other iron deficiency anemias
CPT/HCPCS: 80053; 82248; 83615; 84100; 84436; 84443; 84550; 96413; J7050; J9271

== ENCOUNTER → 2021-08-21 | Day surgery (SDC) | payer MEDICARE ==
[2021-08-21 15:41] VITALS: BP 106/81; TEMP 98.6
== END | disposition home or self-care (01) ==
LOC: ONC/OP 13:53
PROVIDERS: ATTEND Internal Medicine Medical Oncology
DX: Z51.12 Encounter for antineoplastic immunotherapy (principal); C34.12 Malignant neoplasm of upper lobe, left bronchus or lung; D51.8 Other vitamin B12 deficiency anemias; D50.8 Other iron deficiency anemias
CPT/HCPCS: 96413

== ENCOUNTER 2021-08-26 12:05 | Outpatient (CLI) | payer MEDICARE ==
[~2021-08-26 12:05] MED LIST changes: +Iopamidol 370 76% 100 ML VIAL ONE; -Pembrolizumab 200 MG in Sodium Chloride 0.9% 250 ML 250 ML IV SCH
== END 2021-08-26 12:06 | disposition home or self-care (01) ==
LOC: CT 12:05
PROVIDERS: ATTEND Internal Medicine Medical Oncology
DX: C34.12 Malignant neoplasm of upper lobe, left bronchus or lung (principal); R04.2 Hemoptysis; D51.8 Other vitamin B12 deficiency anemias; D50.8 Other iron deficiency anemias
CPT/HCPCS: 70470; 71260; Q9967

== ENCOUNTER 2021-09-11 14:54 | Day surgery (SDC) | payer MEDICARE ==
[~2021-09-11 14:54] MED LIST changes: -Iopamidol 370 76% 100 ML VIAL ONE; +Pembrolizumab 200 MG in Sodium Chloride 0.9% 250 ML 250 ML IV SCH
[2021-09-11 16:02] VITALS: BP 127/87; TEMP 98.4
== END 2021-09-11 21:25 | disposition home or self-care (01) ==
LOC: ONC/OP 14:54
PROVIDERS: ATTEND Internal Medicine Medical Oncology
DX: Z51.12 Encounter for antineoplastic immunotherapy (principal); C34.12 Malignant neoplasm of upper lobe, left bronchus or lung; D51.8 Other vitamin B12 deficiency anemias; D50.8 Other iron deficiency anemias
CPT/HCPCS: 96413

== ENCOUNTER 2021-10-23 13:15 | Day surgery (SDC) | payer MEDICARE ==
[2021-10-23 13:58] VITALS: BP 139/86; TEMP 97.8
[2021-10-23] MEDS ORDERED: Sodium Chloride 0.9% 1,000 ML IV SCH (14:15)
== END 2021-10-23 16:12 | disposition home or self-care (01) ==
LOC: ONC/OP 13:15
PROVIDERS: ATTEND Internal Medicine Hematology & Oncology
DX: Z51.12 Encounter for antineoplastic immunotherapy (principal); C34.12 Malignant neoplasm of upper lobe, left bronchus or lung; D51.8 Other vitamin B12 deficiency anemias; D50.8 Other iron deficiency anemias
CPT/HCPCS: 96361; 96413; J3490; J9271

== ENCOUNTER → 2021-11-13 | Day surgery (SDC) | payer MEDICARE ==
[2021-11-13 14:41] VITALS: BP 118/77; TEMP 98.4
== END ==
LOC: ONC/OP 14:05
PROVIDERS: ATTEND Internal Medicine Medical Oncology
DX: Z51.12 Encounter for antineoplastic immunotherapy (principal); C34.12 Malignant neoplasm of upper lobe, left bronchus or lung; D51.8 Other vitamin B12 deficiency anemias; D50.8 Other iron deficiency anemias
CPT/HCPCS: 96413

== ENCOUNTER 2021-11-27 09:33 | Outpatient (CLI) | payer MEDICARE ==
[2021-11-27] MEDS ORDERED: Iopamidol-370 76% 500 ML 1 ML ONE (10:24)
== END 2021-11-27 09:34 | disposition home or self-care (01) ==
LOC: BICCT 09:33
PROVIDERS: ATTEND Thoracic Surgery (Cardiothoracic Vascular Surgery)
DX: C34.90 Malignant neoplasm of unspecified part of unspecified bronchus or lung (principal); Z92.3 Personal history of irradiation; Z92.21 Personal history of antineoplastic chemotherapy
CPT/HCPCS: 71260; Q9967

== ENCOUNTER 2021-12-04 14:41 | Day surgery (SDC) | payer MEDICARE ==
[2021-12-04 15:48] VITALS: BP 169/97; TEMP 98.2
== END 2021-12-04 16:10 | disposition home or self-care (01) ==
LOC: ONC/OP 14:41
PROVIDERS: ATTEND Internal Medicine Medical Oncology
DX: Z51.12 Encounter for antineoplastic immunotherapy (principal); C34.12 Malignant neoplasm of upper lobe, left bronchus or lung; D51.8 Other vitamin B12 deficiency anemias; D50.8 Other iron deficiency anemias
CPT/HCPCS: 96413

== ENCOUNTER 2024-09-15 10:01 | Inpatient (IN) | payer MEDICARE ==
[2024-09-15] MEDS ORDERED: cefTRIAXone (ROCEPHIN) 2 GM VIAL ONE (10:24)
[2024-09-15] MEDS ORDERED: Acetaminophen 500 MG TAB ONE (10:24)
[2024-09-15 10:33] LABS: Actual Bicarbonate (HCO3v) 24.8 mEq/L (22-28); Base Excess -0.3 mEq/L (-2.0 to +3.0); Calcium, Ionized (venous) 1.05 mmol/L (1.16-1.32); Chloride (VBG) 100 mmol/L (98-106); Hematocrit-VBG 45 % (42.0-52.0); Hemoglobin (Hb) 15.4 g/dL (12.6-17.4); Potassium (VBG) 4.17 mmol/L (3.70-5.30); Sodium 137 mmol/L (133-146)
[2024-09-15 10:48] LABS: #Basophils 0.06 10x3/uL (0.0-0.2); #Eosinophils 0.30 10x3/uL (0.0-0.7); #Monocytes 1.48 10x3/uL (0.11-0.59); #Neutrophils 5.99 10x3/uL (1.40-6.50); %Basophils 0.6 % (0.0-1.0); %Eosinophils 3.1 % (0.0-10.0); %Lymphocytes 20.0 % (21.0-51.0); %Monocytes 15.1 % (0.0-10.0); %Neutrophils 60.9 % (42.0-75.0); Hematocrit 42.7 % (42.0-52.0); Hemoglobin 14.2 g/dL (14.0-18.0); Mean Corpuscular Hemoglobin 27.6 pg (27.0-31.0); Mean Corpuscular Volume 83.1 fL (78.0-98.0); Platelet Count 180 10x3/uL (130-400); Red Blood Cell (RBC) Count 5.14 mill/uL (4.70-6.10); White Blood Cell (WBC) Count 9.83 10x3/uL (4.8-10.8)
[2024-09-15 11:23] LABS: Troponin I 0.016 ng/mL (< 0.028)
[2024-09-15 11:33] LABS: ALT (SGPT) 8 U/L (Less than 45); AST (SGOT) 25 U/L (11-34); Albumin 3.7 g/dL (3.1-4.5); Alkaline Phosphatase 116 U/L (40-110); Anion Gap 17 mmol/L (10-20); BUN (Urea Nitrogen) 27 mg/dL (8.4-25.7); Bilirubin, Total 1.4 mg/dL (0.3-1.2); Calc. Creatinine Clearance 0 mL/min (70-130); Calcium 8.8 mg/dL (7.8-10.44); Carbon Dioxide 23 mmol/L (23-31); Chloride 100 mmol/L (98-107); Globulin 3.7 g/dL (2.4-3.5); Glucose 61 mg/dL (80-115); Potassium 4.1 mmol/L (3.5-5.1); Sodium 136 mmol/L (136-145)
[2024-09-15] MEDS ORDERED: Iopamidol-370 76% 500 ML MDV (1 ML CHARGE) ONE (11:46)
[2024-09-15] MEDS ORDERED: Ibuprofen 200 MG TAB ONE (12:36)
[2024-09-15 12:48] LABS: Bacteria/HPF None Seen HPF (None Seen); CAUTI Indications for Culture Fever or rigors; Glucose, Urine (Dipstick) Normal (Negative); Leukocyte Negative Leu/uL (Negative); Protein, Urine (Dipstick) 10 mg/dL (Neg-Trace); RBC/HPF 0-3 HPF (0-3); Specific Gravity, Urine 1.021 (1.002-1.036); WBC/HPF 0-3 HPF (0-3)
[2024-09-15 12:49] LABS: Urine Culture Reflex No No
[2024-09-15] MEDS ORDERED: Sodium Bicarb 50 MEQ/50 ML Abboject 8.4% SYRINGE ONE ×2 (13:17→13:28)
[2024-09-15] MEDS ORDERED: Dextrose 50% Abboject 50 ML SYRINGE ONE (13:17)
[2024-09-15] MEDS ORDERED: EPINEPHrine 1 MG/10 ML Abboject SYRINGE ONE (13:17)
[2024-09-15] MEDS ORDERED: Magnesium 2 GM/50 ML BAG (IN WATER) ONE (13:32)
[2024-09-15] MEDS ORDERED: NOREPINEPHRINE 8 MG/250 ML-D5W 250 ML ONE (13:46)
[2024-09-15] MEDS ORDERED: Acetaminophen 325 MG TAB PO PRN (13:50)
[2024-09-15] MEDS ORDERED: Ventilator Sedation Protocol 1 EACH FS ONE (13:51)
[2024-09-15] MEDS ORDERED: NOREPINEPHRINE 8 MG/250 ML-D5W 250 ML IVPB SCH (14:00)
[2024-09-15] MEDS ORDERED: Vancomycin 1 GM in Sodium Chloride 0.9% 500 ML IVPB SCH (14:00)
[2024-09-15] MEDS ORDERED: Electrolyte Replacement Protocol 1 EACH FS SCH (14:00)
[2024-09-15] MEDS ORDERED: D5 0.9% NS w/ 20 mEq KCl 1,000 ML IV SCH (14:00)
[2024-09-15 14:34] LABS: Glucose 266 mg/dL (80-115)
[2024-09-15] MEDS ORDERED: DISCONTINUE PREVIOUS NARCOTIC PAIN MEDICATIONS AND BENZODIAZEPINES FS SCH (14:45)
[2024-09-15] MEDS ORDERED: Fentanyl BOLUS 100 ML IVPB PRN (14:45)
[2024-09-15] MEDS ORDERED: Propofol BOLUS 1,000 MG/100 ML VIAL IV PRN (14:45)
[2024-09-15 15:19] VITALS: BP 70/50
[2024-09-15] MEDS ORDERED: VANCOMYCIN 2 GRAM/400 ML Premix BAG IVPB SCH (17:00)
[2024-09-15] MEDS ORDERED: Vancomycin 1 GM in Sodium Chloride 0.9% 250 ML 300 ML IVPB SCH (21:00)
[2024-09-15] MEDS ORDERED: Famotidine/PF 20 mg/2ml Vial SLOW IVP SCH (21:00)
[2024-09-16] MEDS ORDERED: Enoxaparin 40 MG (0.4 mL) SYRINGE SC SCH (09:00)
== END 2024-09-15 15:10 | disposition expired | DRG 308 ==
LOC: ERS 10:01 → CCU 13:50
PROVIDERS: ADMIT Family Medicine; ATTEND Family Medicine
PROC: 3E03329 Introduction of Other Anti-infective into Peripheral Vein, Percutaneous Approach (ICD-10-PCS; principal; 2024-09-15)
PROC: 3E033XZ Introduction of Vasopressor into Peripheral Vein, Percutaneous Approach (ICD-10-PCS; 2024-09-15)
PROC: 0BH17EZ Insertion of Endotracheal Airway into Trachea, Via Natural or Artificial Opening (ICD-10-PCS; 2024-09-15)
PROC: 5A1935Z Respiratory Ventilation, Less than 24 Consecutive Hours (ICD-10-PCS; 2024-09-15)
PROC: 5A12012 Performance of Cardiac Output, Single, Manual (ICD-10-PCS; 2024-09-15)
PROC: 0DH67UZ Insertion of Feeding Device into Stomach, Via Natural or Artificial Opening (ICD-10-PCS; 2024-09-15)
PROC: 5A2204Z Restoration of Cardiac Rhythm, Single (ICD-10-PCS; 2024-09-15)
DX: I49.01 Ventricular fibrillation (principal); A41.9 Sepsis, unspecified organism; J96.01 Acute respiratory failure with hypoxia; E87.20 Acidosis, unspecified; T85.628A Displacement of other specified internal prosthetic devices, implants and grafts, initial encounter; I31.39 Other pericardial effusion (noninflammatory); Z66 Do not resuscitate; E16.2 Hypoglycemia, unspecified; R57.0 Cardiogenic shock; M10.9 Gout, unspecified; I10 Essential (primary) hypertension; M54.50 Low back pain, unspecified; F32.A Depression, unspecified; J44.9 Chronic obstructive pulmonary disease, unspecified; Z79.82 Long term (current) use of aspirin; Z92.21 Personal history of antineoplastic chemotherapy; Z98.890 Other specified postprocedural states; Z98.84 Bariatric surgery status; Z87.891 Personal history of nicotine dependence; Z85.118 Personal history of other malignant neoplasm of bronchus and lung; G89.29 Other chronic pain; I25.2 Old myocardial infarction; I46.2 Cardiac arrest due to underlying cardiac condition; K44.9 Diaphragmatic hernia without obstruction or gangrene
CPT/HCPCS: 31500; 36415; 36416; 71045; 71275; 80053; 81001; 82805; 83605; 84484; 85025; 87040; 87077; 87086; 92950; 93005; 94002; 94760; 96365; 96374; J0165; J0282; J0696; J2250; J3010; J3475; J7070; J7999; Q9967